=== PATIENT | male | born 1955 | race Caucasian/White ===

== ENCOUNTER 2019-08-09 13:13 | Inpatient (IN) | payer MEDICARE ==
[~2019-08-09] VITALS: Ht 180.3 cm; Wt 82.9 kg
[2019-08-09] MEDS ORDERED: fentaNYL PF VIAL 100 MCG/2 ML VIAL IVP ONE (13:30)
[2019-08-09] MEDS ORDERED: IV NORMAL SALINE 1000ML BAG 1,000 ML IV ONE ×2 (13:30→14:30)
--- NOTE | 2019-08-09 13:35 | PHYS DOC ---
Past Medical History Past Medical History: COPD, Diabetes-Type II, Hypertension Past Surgical History: No Surgical History Smoking Status: Current Every Day Smoker Alcohol Use: None General Adult EDM: Chief Complaint: ABDOMINAL PAIN HPI: HPI: Patient is a 64 year old male who presents with states about 10 days ago he was trying to lift the back of a lawnmower when he felt a pop in his chest and abdomen area. Patient is complaining of abdominal pain rates a 10 out of 10. He states that he has been having regular bowel movements. He states 2 days ago he was a bit constipated but he is no longer constipated. He states he has not had any nausea or vomiting or diarrhea. He states he does not have any chest pain. He states the pain is worse upon movement. He states he is short of breath. He has a history of COPD, diabetes, hypertension, smoker. He states that he took some BC powder this morning. Review of Systems: Review of Systems: Respiratory: Denies cough. + shortness of breath. [] GI: abdominal pain, denies nausea, vomiting, bloody stools or diarrhea. [] Heart Score: Risk Factors: Risk Factors: DM, Current or recent (<one month) smoker, HTN, HLP, family history of CAD, obesity. Risk Scores: Score 0 - 3: 2.5% MACE over next 6 weeks - Discharge Home Score 4 - 6: 20.3% MACE over next 6 weeks - Admit for Clinical Observation Score 7 - 10: 72.7% MACE over next 6 weeks - Early Invasive Strategies Current Medications: Current Medications Medications (Trade) Dose Ordered Sig/Hector Start Time Stop Time Status Last Admin Dose Admin Fentanyl Citrate (Fentanyl 2ml Vial) 50 mcg 1X ONCE 08/09/19 13:30 08/09/19 13:31 UNV Sodium Chloride 1,000 ml @ 1,000 mls/hr 1X ONCE 08/09/19 13:30 08/09/19 14:29 UNV Allergies: Allergies: Allergies Coded Allergies Type Severity Reaction Last Updated Verified Penicillins Allergy Unknown 08/09/19 Yes Physical Exam: PE: Constitutional: Well developed, well nourished, no acute distress, non-toxic appearance. [] HENT: Normocephalic, atraumatic, bilateral external ears normal, oropharynx moist, no oral exudates, nose normal. [] Eyes: PERRLA, EOMI, conjunctiva normal, no discharge. [] Neck: Normal range of motion, no tenderness, supple, no stridor. [] Cardiovascular:Heart rate tachy regular rhythm, no murmur [] Lungs & Thorax: Bilateral breath sounds diminished to auscultation [] Abdomen: Bowel sounds normal, tight, distended, generalized tenderness, no masses, no pulsatile masses. [] Skin: Warm, dry, no erythema, no rash. [] Back: No tenderness, no CVA tenderness. [] Extremities: No tenderness, no cyanosis, no clubbing, ROM intact, no edema. [] Neurologic: Alert and oriented X 3, normal motor function, normal sensory function, no focal deficits noted. [] Psychologic: Affect normal, judgement normal, mood normal. [] Current Patient Data: Vital Signs: Vital Signs Date Time Temp Pulse Resp B/P (MAP) Pulse Ox O2 Delivery O2 Flow Rate FiO2 08/09/19 13:23 98.0 110 30 149/90 (109) 96 Nasal Cannula 2.0 98.0 EKG: EK and read by Dr Dukes. Sinus Tachycardia and no STEMI[] Radiology/Procedures: Radiology/Procedures: [] Impression: [address] [id number] IMAGING REPORT Signed PATIENT: SHWETA PATEL ACCOUNT: [id number] : 1955 LOCATION: ER AGE: 64 SEX: M EXAM STATUS: PRE ER ORD. PHYSICIAN: ENRIKE LITTLE APRN REASON: SHORT OF BREATH, ABDOMINAL PAIN PROCEDURE: PORTABLE CHEST 1V PORTABLE CHEST 1V History: Shortness of breath. Abdominal pain. Comparison: None. Findings: Low lung volumes. Patchy left basilar opacities. Normal heart size. No pneumothorax. Impression: 1. Low lung volumes with patchy left basilar opacities, most likely atelectasis. Electronically signed by: PedroP ablo Calvert DO (08/09/2019 1:45 PM) [id number] DICTATED and SIGNED BY: PEDRO PABLO CALVERT DO DATE: 08/09/[address] [id number] IMAGING REPORT Signed PATIENT: SHWETA PATEL ACCOUNT: [id number] : 1955 LOCATION: ER AGE: 64 SEX: M EXAM STATUS: PRE ER ORD. PHYSICIAN: ENRIKE LITTLE APRN REASON: ABDOMINAL PAIN S/P HEAVY LIFTING, FELT POP IN CHEST. SOA PROCEDURE: CT ANGIO CHEST ABD PELVIS Examination: CT ANGIO CHEST ABD PELVIS History: Shortness of breath, abdominal pain Comparison/Correlation: None Findings: Axial images of chest, abdomen, and pelvis obtained following IV contrast and arteriography protocol. Sagittal and coronal reformatted images were provided. 3-D volume rendered images of the aorta were provided. Maximum intensity projection images were provided. At the left base of the neck, there is a heterogeneous intermediate density structure present. It is present just lateral to the left thyroid lobe and abuts the posterior margin of the left common carotid artery. It measures 3.3 cm x 3 cm x 3.8 cm longitudinal. It is well-circumscribed. There is a fat plane between this mass lesion in the left thyroid lobe. Assessment of the aortic arch branches is somewhat limited due to artifact related to contrast within the left brachiocephalic vein and superior vena cava. Thoracic aorta is unremarkable with no evidence of dissection or aneurysm. There is scattered atheromatous involvement of the abdominal aorta. There is excellent pulmonary arterial opacification. No thromboembolic disease identified. Very high-grade stenosis of the celiac artery just distal to its origin is noted. Similar mesenteric arteries widely patent. Approximately 30 percent stenosis of the superior mesenteric artery origin is noted. Significant calcific involvement of the common iliac arteries is noted. Bilateral main renal arteries are widely patent. Marked left anterior descending coronary vessel calcification is noted. Mild emphysematous involvement of the lung kong diffusely seen. Minimal right left costophrenic sulcus atelectasis is present. Minimal left basilar aspects of atelectasis. Several pulmonary nodules bilaterally present. Most do not appear to have calcific components. Largest of these on the left at the midthoracic level laterally within the upper lobe on axial image 41 measures 0.8 cm x 0.6 mm. A left posterior basilar aspect, there is a 1.1 cm x 0.5 cm nodule on axial image 59. The right mid thoracic level within the upper lobe along the major fissure, there is a 0.7 cm diameter nodule. Possibility of this representing a perifissural lymph node is raised considering its location. Other nodules present mostly not adjacent to the fissure. Small hiatal hernia is present. There is an enlarged lymph node anterior to the hiatal hernia on axial image 72 measuring 3.5 cm x 2.9 cm. Smaller lymph nodes or masses along the left side of the descending thoracic aorta are present on axial image 61. Largest of these measures 2 cm diameter. Significant nodular contour of the liver compatible with cirrhosis. There is a hypoenhancing region involving the liver inferior to the level of the middle hepatic vein on axial image 82 measuring 4.2 cm x 3 cm.Splenomegaly is present with 17 cm in longitudinal measurement. Adrenal glands are normal. Kidneys are unremarkable. Pancreas is unremarkable. Gallbladder fossa is unremarkable. No bowel obstruction. Appendix is normal. Diverticulosis is mild. Moderate amount of ascites is noted involving the abdomen and pelvis. Nonenlarged lymph nodes are present involving the retroperitoneum. Masses present just superior to the pancreatic neck measuring 4.2 cm x 4.3 cm. Additional masses present along the posterior inferior margin of the gastric cardia with heterogeneous enhancement. It measures 4.5 cm x 3.4 cm. Urinary bladder is unremarkable. Degenerative disc space narrowing of the cervical spine noted. Impression: No aortic dissection or aneurysm. Atherosclerotic calcific involvement is present. 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 No pulmonary arterial thromboembolic disease. Multiple pulmonary nodules. Mass at the left base of the neck. Multiple enlarged masses along the left side of the ascending thoracic aorta and anterior to a hiatal hernia. Upper abdominal enlarged lymph nodes or masses. Metastatic etiology is of concern. Hepatic cirrhosis with splenomegaly. Hypoattenuation involving the liver which raises possibility of mass lesion is noted. Further evaluation MRI of the liver without and with contrast should be considered for more definitive assessment. Moderate to large amount of ascites. Marked coronary arterial calcification. Correlate clinically for underlying coronary disease. PQRS Compliance Statement: One or more of the following individualized dose reduction techniques were utilized for this examination: 1. Automated exposure control 2. Adjustment of the mA and/or kV according to patient size 3. Use of iterative reconstruction technique Electronically signed by: Augustus Bradley MD (08/09/2019 3:09 PM) [id number] DICTATED and SIGNED BY: AUGUSTUS BRADLEY MD DATE: 08/09/19 1509 Course & Med Decision Making: Course & Med Decision Making Pertinent Labs and Imaging studies reviewed. (See chart for details) Alert and oriented. Speaks in full clear sentences. Abdomen is distended, rounded, tight, generalized tenderness with palpation. Skin pink warm and dry. Speaks in full complete sentences. Lungs are diminished bilaterally. Bowel sounds are hypoactive. No extremity edema. I have spoken to Dr Moy for admission. He states to put the patient on Med Surg and that he will place consults for the patient. [] Dragon Disclaimer: Dragon Disclaimer: This electronic medical record was generated, in whole or in part, using a voice recognition dictation system. Departure Departure Impression: Primary Impression: Ascites Qualified Codes: R18.8 - Other ascites Disposition: ADMITTED INPATIENT Admitting Physician: RAMONE Condition: STABLE ENRIKE LITTLE APRN August 09, 2019 13:35
[2019-08-09 13:48] LABS: BASO % 1 % (0-3); EOS # 0.1 x10^3/uL (0.0-0.7); EOS % 2 % (0-3); HEMATOCRIT 41.2 % (39.0-53.0); HEMOGLOBIN 13.7 g/dL (13.0-17.5); LYMPH # 1.6 x10^3/uL (1.0-4.8); LYMPH % 17 % (24-48); MEAN CORPUSCULAR HEMOGLOBIN 31 pg (25-35); MEAN CORPUSCULAR HGB CONC 33 g/dL (31-37); MEAN CORPUSCULAR VOLUME 92 fL (79-100); MONO # 0.9 x10^3/uL (0.0-1.1); MONO % 10 % (0-9); NEUT # 6.6 x10^3/uL (1.8-7.7); NEUT % 71 % (31-73); PLATELET COUNT 147 x10^3/uL (140-400); RED CELL DISTRIBUTION WIDTH 14.8 % (11.5-14.5); WHITE BLOOD COUNT 9.2 x10^3/uL (4.0-11.0)
--- NOTE | 2019-08-09 13:48 | RAD ---
PORTABLE CHEST 1V History: Shortness of breath. Abdominal pain. Comparison: None. Findings: Low lung volumes. Patchy left basilar opacities. Normal heart size. No pneumothorax. Impression: 1. Low lung volumes with patchy left basilar opacities, most likely atelectasis. Electronically signed by: Pedro Pablo Calvert DO (08/09/2019 1:45 PM) [id number]
[2019-08-09 13:58] LABS: PROTHROMBIN TIME PATIENT 13.3 SEC (11.7-14.0)
[2019-08-09 14:00] LABS: CALCIUM 8.5 mg/dL (8.5-10.1); CREATININE 0.7 mg/dL (0.7-1.3); GFR 114.3
[2019-08-09 14:15] LABS: ALBUMIN 2.7 g/dL (3.4-5.0); ALBUMIN/GLOBULIN RATIO 0.8 (1.0-1.7); TOTAL BILIRUBIN 0.9 mg/dL (0.2-1.0); TOTAL PROTEIN 5.9 g/dL (6.4-8.2)
[2019-08-09] MEDS ORDERED: CONTRAST GIVEN. MC PRN (14:15)
[2019-08-09] MEDS ORDERED: IOHEXOL 350 MG/ML 100 ML VIAL. IV ONE (14:15)
--- NOTE | 2019-08-09 14:46 | EKG ---
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
--- NOTE | 2019-08-09 15:12 | RAD ---
Examination: CT ANGIO CHEST ABD PELVIS History: Shortness of breath, abdominal pain Comparison/Correlation: None Findings: Axial images of chest, abdomen, and pelvis obtained following IV contrast and arteriography protocol. Sagittal and coronal reformatted images were provided. 3-D volume rendered images of the aorta were provided. Maximum intensity projection images were provided. At the left base of the neck, there is a heterogeneous intermediate density structure present. It is present just lateral to the left thyroid lobe and abuts the posterior margin of the left common carotid artery. It measures 3.3 cm x 3 cm x 3.8 cm longitudinal. It is well-circumscribed. There is a fat plane between this mass lesion in the left thyroid lobe. Assessment of the aortic arch branches is somewhat limited due to artifact related to contrast within the left brachiocephalic vein and superior vena cava. Thoracic aorta is unremarkable with no evidence of dissection or aneurysm. There is scattered atheromatous involvement of the abdominal aorta. There is excellent pulmonary arterial opacification. No thromboembolic disease identified. Very high-grade stenosis of the celiac artery just distal to its origin is noted. Similar mesenteric arteries widely patent. Approximately 30 percent stenosis of the superior mesenteric artery origin is noted. Significant calcific involvement of the common iliac arteries is noted. Bilateral main renal arteries are widely patent. Marked left anterior descending coronary vessel calcification is noted. Mild emphysematous involvement of the lung kong diffusely seen. Minimal right left costophrenic sulcus atelectasis is present. Minimal left basilar aspects of atelectasis. Several pulmonary nodules bilaterally present. Most do not appear to have calcific components. Largest of these on the left at the midthoracic level laterally within the upper lobe on axial image 41 measures 0.8 cm x 0.6 mm. A left posterior basilar aspect, there is a 1.1 cm x 0.5 cm nodule on axial image 59. The right mid thoracic level within the upper lobe along the major fissure, there is a 0.7 cm diameter nodule. Possibility of this representing a perifissural lymph node is raised considering its location. Other nodules present mostly not adjacent to the fissure. Small hiatal hernia is present. There is an enlarged lymph node anterior to the hiatal hernia on axial image 72 measuring 3.5 cm x 2.9 cm. Smaller lymph nodes or masses along the left side of the descending thoracic aorta are present on axial image 61. Largest of these measures 2 cm diameter. Significant nodular contour of the liver compatible with cirrhosis. There is a hypoenhancing region involving the liver inferior to the level of the middle hepatic vein on axial image 82 measuring 4.2 cm x 3 cm.Splenomegaly is present with 17 cm in longitudinal measurement. Adrenal glands are normal. Kidneys are unremarkable. Pancreas is unremarkable. Gallbladder fossa is unremarkable. No bowel obstruction. Appendix is normal. Diverticulosis is mild. Moderate amount of ascites is noted involving the abdomen and pelvis. Nonenlarged lymph nodes are present involving the retroperitoneum. Masses present just superior to the pancreatic neck measuring 4.2 cm x 4.3 cm. Additional masses present along the posterior inferior margin of the gastric cardia with heterogeneous enhancement. It measures 4.5 cm x 3.4 cm. Urinary bladder is unremarkable. Degenerative disc space narrowing of the cervical spine noted. Impression: No aortic dissection or aneurysm. Atherosclerotic calcific involvement is present. 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 No pulmonary arterial thromboembolic disease. Multiple pulmonary nodules. Mass at the left base of the neck. Multiple enlarged masses along the left side of the ascending thoracic aorta and anterior to a hiatal hernia. Upper abdominal enlarged lymph nodes or masses. Metastatic etiology is of concern. Hepatic cirrhosis with splenomegaly. Hypoattenuation involving the liver which raises possibility of mass lesion is noted. Further evaluation MRI of the liver without and with contrast should be considered for more definitive assessment. Moderate to large amount of ascites. Marked coronary arterial calcification. Correlate clinically for underlying coronary disease. PQRS Compliance Statement: One or more of the following individualized dose reduction techniques were utilized for this examination: 1. Automated exposure control 2. Adjustment of the mA and/or kV according to patient size 3. Use of iterative reconstruction technique Electronically signed by: Augustus Henning MD (08/09/2019 3:09 PM) [id number]
[2019-08-09] MEDS ORDERED: ONDANSETRON PF 4 MG/2 ML VIAL. IV PRN ×2 (15:45→16:30)
--- NOTE | 2019-08-09 16:12 | PDOC1 ---
History and Physical Date of Admission Date of Admission DATE: 08/09/19 TIME: 16:07 Identification/Chief Complaint Chief Complaint Abdominal pain Source Source: Patient History of Present Illness History of Present Illness Mr Sims is a 64 yo M [place] who gets most of his care at the [facility] w/ PMHx COPD, Diabetes-Type II, Hypertension, Hep C s/p SVR treatment (initially did not disclose this), smoker who presents with chest tightness and abdominal pain. Abdominal pain rates a 10 out of 10. He states that he has been having regular bowel movements. He states 2 days ago he was a bit constipated but he is no longer constipated. He states he has not had any nausea or vomiting or diarrhea. He states he does not have any chest pain currently. On ROS he also notes new shortness of breath which has been progressive. He also notes abdominal pain on movement. He is asking for food and he is worried about his being upset after he was told he probably has cancer based on his abnormal CT scan. He notes states about 10 days ago he was trying to lift the back of a lawnmower when he felt a pop in his chest and abdomen area. 3 days ago he tried to lift a tractor and felt the same sensation. 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 Also noted is a mass at the left base of the neck. In addition, multiple enlarged masses along the left side of the ascending thoracic aorta and anterior to a hiatal hernia and upper abdominal enlarged lymph nodes or masses. Finally notable is hepatic cirrhosis with splenomegaly and hypoattenuation involving the liver which raises possibility of mass lesion is noted. Moderate to large amount of ascites. He stopped taking his medications this past March due to frustration with some medical bills. Last MD visit was 1.5 years ago at the [facility]. He is up to date on colonoscopies, but notes last year he had to have barium enema CT colonography. He also notes a left neck pain that had been bothering him, but notes a negative w/u at the [facility]. No records currently available. Labs significant for WBC 9.2, Hb 13.7, platelets 147, NA 135, K4, BUN 14, CR 0.7, glucose 208, AST 213, ALT 75, alk phos 464, albumin 2.7, lipase 172, INR 1 .1, troponin negative. Admitted for further care. Past Medical History Endocrine: Diabetes Past Surgical History Past Surgical History: No pertinent history Family History Family History: High Cholestrol, Hypertension Social History Smoke: 1 pack per day ALCOHOL: other (Quit in 2004) Drugs: None Current Problem List Problem List Problems Medical Problems: (1) Ascites Status: Acute Current Medications Current Medications Current Medications Fentanyl Citrate (Fentanyl 2ml Vial) 50 mcg 1X ONCE IVP Last administered on 08/09/19at 13:36; Start 08/09/19 at 13:30; Stop 08/09/19 at 13:31; Status DC Sodium Chloride 1,000 ml @ 1,000 mls/hr 1X ONCE IV Last administered on 08/09/19at 13:36; Start 08/09/19 at 13:30; Stop 08/09/19 at 14:29; Status DC Iohexol (Omnipaque 350 Mg/ml) 100 ml 1X ONCE IV Last administered on 08/09/19at 14:23; Start 08/09/19 at 14:15; Stop 08/09/19 at 14:16; Status DC Info (CONTRAST GIVEN -- Rx MONITORING) 1 each PRN DAILY PRN [facility] SEE COMMENTS; Start 08/09/19 at 14:15; Stop 08/11/19 at 14:14 Sodium Chloride 1,000 ml @ 1,000 mls/hr 1X ONCE IV Last administered on 08/09/19at 14:35; Start 08/09/19 at 14:30; Stop 08/09/19 at 15:29; Status DC Ondansetron HCl (Zofran) 4 mg PRN Q8HRS PRN IV NAUSEA/VOMITING; Start 08/09/19 at 15:45; Stop 08/10/19 at 15:44 Fentanyl Citrate (Fentanyl 2ml Vial) 50 mcg PRN Q1HR PRN IV PAIN; Start 08/09/19 at 15:45; Stop 08/10/19 at 15:44 Allergies Allergies: Coded Allergies: Penicillins (Verified Allergy, Unknown, 08/09/19) ROS General: YES: Fatigue, Malaise; No: Chills, Night Sweats, Appetite, Other PSYCHOLOGICAL ROS: No: Anxiety, Behavioral Disorder, Concentration difficultie, Decreased libido, Depression, Disorientation, Hallucinations, Hostility, Irritablity, Memory difficulties, Mood Swings, Obsessive thoughts, Physical abuse, Sexual abuse, Sleep disturbances, Suicidal ideation, Other Eyes: No Blurry vision, No Decreased vision, No Double vision, No Dry eyes, No Excessive tearing, No Eye Pain, No Itchy Eyes, No Loss of vision, No Photophobia, No Scotomata, No Uses contacts, No Uses glasses, No Other HEENT: No: Heacaches, Visual Changes, Hearing change, Nasal congestion, Nasal d ischarge, Oral lesions, Sinus pain, Sore Throat, Epistaxis, Sneezing, Snoring, Tinnitus, Vertigo, Vocal changes, Other ALLERGY AND IMMUNOLOGY: No: Hives, Insect Bite Sensitivity, Itchy/Watery Eyes, Nasal Congestion, Post Nasal Drip, Seasonal Allergies, Other Hematological and Lymphatic: No: Bleeding Problems, Blood Clots, Blood Transfusions, Brusing, Night Sweats, Pallor, Swollen Lymph Nodes, Other ENDOCRINE: No: Breast Changes, Galactorrhea, Hair Pattern Changes, Hot Flashes, Malaise/lethargy, Mood Swings, Palpitations, Polydipsia/polyuria, Skin Changes, Temperature Intolerance, Unexpected Weight Changes, Other Breast: No New/Changing Breast Lumps, No Nipple changes, No Nipple discharge, No Other Respiratory: YES: Shortness of breath; No: Cough, Hemoptysis, Orthopnea, Pleuritic Pain, SOB with excertion, Sputum Changes, Stridor, Tachypnea, Wheezing, Other Cardiovascular: No Chest Pain, No Palpitations, No Orthopnea, No Paroxysmal Noc. Dyspnea, No Edema, No Lt Headedness, No Other Gastrointestinal: Yes Abdominal Pain; No Nausea, No Vomiting, No Diarrhea, No Constipation, No Melena, No Hematochezia, No Other Genitourinary: No Dysuria, No Frequency, No Incontinence, No Hematuria, No Retention, No Discharge, No Urgency, No Pain, No Flank Pain, No Other, No , No , No , No , No , No , No Musculoskeletal: No Gait Disturbance, No Joint Pain, No Joint Stiffness, No Joint Swelling, No Muscle Pain, No Muscular Weakness, No Pain In:, No Swelling In:, No Other Neurological: No Behavorial Changes, No Bowel/Bladder ControlChng, No Confusion, No Dizziness, No Gait Disturbance, No Headaches, No Impaired Coord/balance, No Memory Loss, No Numbness/Tingling, No Seizures, No Speech Problems, No Tremors, No Visual Changes, No Weakness, No Other Skin: Yes Dry Skin; No Eczema, No Hair Changes, No Lumps, No Mole Changes, No Mottling, No Nail Changes, No Pruritus, No Rash, No Skin Lesion Changes, No Other, No Acne Physical Exam General: Alert, Oriented X3, Cooperative, moderate distress Lungs: Other (scattered wheezes) Heart: S1S2, RRR, no thrills, no rubs, no gallops, no murmurs Abdomen: Normal bowel sounds, Soft, No hepatosplenomegaly, No masses, Other (positive fluid wave, large ascites) Rectal Exam: not examined Extremities: No clubbing, No cyanosis, No edema, Normal pulses, No tenderness/swelling Skin: No rashes, No breakdown, No significant lesion Neuro: Normal gait, Normal speech, Strength at 5/5 X4 ext, Normal tone, Se nsation intact, Cranial nerves 3-12 NL, Reflexes 2+ Psych/Mental Status: Mental status NL, Mood NL Vitals Vitals Vital Signs Date Time Temp Pulse Resp B/P (MAP) Pulse Ox O2 Delivery O2 Flow Rate FiO2 08/09/19 15:33 82 25 148/81 (103) 95 Nasal Cannula 2.0 08/09/19 13:23 98.0 98.0 Labs Labs Laboratory Tests Test 08/09/19 13:28 White Blood Count 9.2 x10^3/uL (4.0-11.0) Red Blood Count 4.50 x10^6/uL (4.30-5.70) Hemoglobin 13.7 g/dL (13.0-17.5) Hematocrit 41.2 % (39.0-53.0) Mean Corpuscular Volume 92 fL (79-100) Mean Corpuscular Hemoglobin 31 pg (25-35) Mean Corpuscular Hemoglobin Concent 33 g/dL (31-37) Red Cell Distribution Width 14.8 % (11.5-14.5) Platelet Count 147 x10^3/uL (140-400) Neutrophils (%) (Auto) 71 % (31-73) Lymphocytes (%) (Auto) 17 % (24-48) Monocytes (%) (Auto) 10 % (0-9) Eosinophils (%) (Auto) 2 % (0-3) Basophils (%) (Auto) 1 % (0-3) Neutrophils # (Auto) 6.6 x10^3/uL (1.8-7.7) Lymphocytes # (Auto) 1.6 x10^3/uL (1.0-4.8) Monocytes # (Auto) 0.9 x10^3/uL (0.0-1.1) Eosinophils # (Auto) 0.1 x10^3/uL (0.0-0.7) Basophils # (Auto) 0.0 x10^3/uL (0.0-0.2) Prothrombin Time 13.3 SEC (11.7-14.0) Prothromb Time International Ratio 1.1 (0.8-1.1) Sodium Level 135 mmol/L (136-145) Potassium Level 4.0 mmol/L (3.5-5.1) Chloride Level 102 mmol/L (98-107) Carbon Dioxide Level 24 mmol/L (21-32) Anion Gap 9 (6-14) Blood Urea Nitrogen 14 mg/dL (8-26) Creatinine 0.7 mg/dL (0.7-1.3) Estimated GFR (Cockcroft-Gault) 114.3 BUN/Creatinine Ratio 20 (6-20) Glucose Level 208 mg/dL (70-99) Lactic Acid Level 3.1 mmol/L (0.4-2.0) Calcium Level 8.5 mg/dL (8.5-10.1) Total Bilirubin 0.9 mg/dL (0.2-1.0) Aspartate Amino Transf (AST/SGOT) 213 U/L (15-37) Alanine Aminotransferase (ALT/SGPT) 75 U/L (16-63) Alkaline Phosphatase 464 U/L (46-116) Troponin I Quantitative < 0.017 ng/mL (0.000-0.055) Total Protein 5.9 g/dL (6.4-8.2) Albumin 2.7 g/dL (3.4-5.0) Albumin/Globulin Ratio 0.8 (1.0-1.7) Lipase 172 U/L (73-393) Laboratory Tests Test 08/09/19 13:28 White Blood Count 9.2 x10^3/uL (4.0-11.0) Red Blood Count 4.50 x10^6/uL (4.30-5.70) Hemoglobin 13.7 g/dL (13.0-17.5) Hematocrit 41.2 % (39.0-53.0) Mean Corpuscular Volume 92 fL (79-100) Mean Corpuscular Hemoglobin 31 pg (25-35) Mean Corpuscular Hemoglobin Concent 33 g/dL (31-37) Red Cell Distribution Width 14.8 % (11.5-14.5) Platelet Count 147 x10^3/uL (140-400) Neutrophils (%) (Auto) 71 % (31-73) Lymphocytes (%) (Auto) 17 % (24-48) Monocytes (%) (Auto) 10 % (0-9) Eosinophils (%) (Auto) 2 % (0-3) Basophils (%) (Auto) 1 % (0-3) Neutrophils # (Auto) 6.6 x10^3/uL (1.8-7.7) Lymphocytes # (Auto) 1.6 x10^3/uL (1.0-4.8) Monocytes # (Auto) 0.9 x10^3/uL (0.0-1.1) Eosinophils # (Auto) 0.1 x10^3/uL (0.0-0.7) Basophils # (Auto) 0.0 x10^3/uL (0.0-0.2) Prothrombin Time 13.3 SEC (11.7-14.0) Prothromb Time International Ratio 1.1 (0.8-1.1) Sodium Level 135 mmol/L (136-145) Potassium Level 4.0 mmol/L (3.5-5.1) Chloride Level 102 mmol/L (98-107) Carbon Dioxide Level 24 mmol/L (21-32) Anion Gap 9 (6-14) Blood Urea Nitrogen 14 mg/dL (8-26) Creatinine 0.7 mg/dL (0.7-1.3) Estimated GFR (Cockcroft-Gault) 114.3 BUN/Creatinine Ratio 20 (6-20) Glucose Level 208 mg/dL (70-99) Lactic Acid Level 3.1 mmol/L (0.4-2.0) Calcium Level 8.5 mg/dL (8.5-10.1) Total Bilirubin 0.9 mg/dL (0.2-1.0) Aspartate Amino Transf (AST/SGOT) 213 U/L (15-37) Alanine Aminotransferase (ALT/SGPT) 75 U/L (16-63) Alkaline Phosphatase 464 U/L (46-116) Troponin I Quantitative < 0.017 ng/mL (0.000-0.055) Total Protein 5.9 g/dL (6.4-8.2) Albumin 2.7 g/dL (3.4-5.0) Albumin/Globulin Ratio 0.8 (1.0-1.7) Lipase 172 U/L (73-393) Images Images CT ANGIO CHEST ABD PELVIS At the left base of the neck, there is a heterogeneous intermediate density str ucture present. It is present just lateral to the left thyroid lobe and abuts the posterior margin of the left common carotid artery. It measures 3.3 cm x 3 cm x 3.8 cm longitudinal. It is well-circumscribed. There is a fat plane between this mass lesion in the left thyroid lobe. Assessment of the aortic arch branches is somewhat limited due to artifact related to contrast within the left brachiocephalic vein and superior vena cava. Thoracic aorta is unremarkable with no evidence of dissection or aneurysm.There is scattered atheromatous involvement of the abdominal aorta. There is excellent pulmonary arterial opacification. No thromboembolic disease identified. Very high-grade stenosis of the celiac artery just distal to its origin is noted. Similar mesenteric arteries widely patent. Approximately 30 percent stenosis of the superior mesenteric artery origin is noted. Significant calcific involvement of the common iliac arteries is noted. Bilateral main renal arteries are widely patent. Marked left anterior descending coronary vessel calcification is noted. Mild emphysematous involvement of the lung kong diffusely seen. Minimal right left costophrenic sulcus atelectasis is present. Minimal left basilar aspects of atelectasis. Several pulmonary nodules bilaterally present. Most do not appear to have calcific components. Largest of these on the left at the midthoracic level laterally within the upper lobe on axial image 41 measures 0.8 cm x 0.6 mm. A left posterior basilar aspect, there is a 1.1 cm x 0.5 cm nodule on axial image 59. The right mid thoracic level within the upper lobe along the major fissure, there is a 0.7 cm diameter nodule. Possibility of this representing a perifissural lymph node is raised considering its location. Other nodules present mostly not adjacent to the fissure. Small hiatal hernia is present. There is an enlarged lymph node anterior to the hiatal hernia on axial image 72 measuring 3.5 cm x 2.9 cm. Smaller lymph nodes or masses along the left side of the descending thoracic aorta are present on axial image 61. Largest of these measures 2 cm diameter. Significant nodular contour of the liver compatible with cirrhosis. There is a hypoenhancing region involving the liver inferior to the level of the middle hepatic vein on axial image 82 measuring 4.2 cm x 3 cm. Splenomegaly is present with 17 cm in longitudinal measurement. Adrenal glands are normal. Kidneys are unremarkable. Pancreas is unremarkable. Gallbladder fossa is unremarkable. No bowel obstruction. Appendix is normal. Diverticulosis is mild. Moderate amount of ascites is noted involving the abdomen and pelvis. Nonenlarged lymph nodes are present involving the retroperitoneum. Masses present just superior to the pancreatic neck measuring 4.2 cm x 4.3 cm. Additional masses present along the posterior inferior margin of the gastric cardia with heterogeneous enhancement. It measures 4.5 cm x 3.4 cm. Urinary bladder is unremarkable. Degenerative disc space narrowing of the cervical spine noted. Impression: No aortic dissection or aneurysm. Atherosclerotic calcific involvement is present. 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 No pulmonary arterial thromboembolic disease. Multiple pulmonary nodules. Mass at the left base of the neck. Multiple enlarged masses along the left side of the ascending thoracic aorta and anterior to a hiatal hernia. Upper abdominal enlarged lymph nodes or masses. Metastatic etiology is of concern. Hepatic cirrhosis with splenomegaly. Hypoattenuation involving the liver which raises possibility of mass lesion is noted. Further evaluation MRI of the liver without and with contrast should be considered for more definitive assessment. Moderate to large amount of ascites. Marked coronary arterial calcification. Correlate clinically for underlying coronary disease. VTE Prophylaxis Ordered VTE Prophylaxis Devices: No VTE Pharmacological Prophylaxi: Yes Assessment/Plan Assessment/Plan A/P: Spontaneous ascites - almost certainly due to progression of cirrhosis of liver. Especially concerning that he has stopped drinking and is in SVR from his hep C. D/w IR to have diagnostic and therapeutic paracentesis in AM if possible. GI consulted as well. Cirrhosis - with splenomegaly and spontaneous ascites risk factors of hep C and history of EtOH abuse. GI consulted. Transaminitis - likely related to acute decompensated liver failure or acute hepatitis or congestive hepatopathy. 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 Abdominal doppler would be appropriate after paracentesis and at that time can assess for possible portal thrombus as well Multiple pulmonary nodules. Also noted is a mass at the left base of the neck. In addition, multiple enlarged masses along the left side of the ascending thoracic aorta and anterior to a hiatal hernia and upper abdominal enlarged lymph nodes or masses. Pulm consulted, Hypoattenuation involving the liver which raises possibility of mass lesion - CA19-9 and CEA ordered. GI consulted COPD - prn nebs ordered Diabetes-Type II - basal bolus plus insulin while inpatient Hypertension - will reconcile meds with [facility] H/o Hep C s/p SVR treatment - will check acute hepatitis panel. Will d/w GI if PCR is appropriate FEN - ADA diet, NPO after midnight PPX - heparin TID FULL CODE Dispo - inpatient ALISHA TREJO MD August 09, 2019 16:12
[2019-08-09 16:40] VITALS: BP 134/76
--- NOTE | 2019-08-09 17:00 | NUR ---
Pt admitted from ED via wheelchair. A&O X 4, VSS on 2L of O2, denies nausea or pain. Completed admission assessments. Consults called by health unit coordinator. Oriented to room and routine. Meal tray ordered. Water pitcher filled. Call light within reach. Will return to monitor.
[2019-08-09] MEDS ORDERED: DEXTROSE 50% 25 GM / 50ML DISP.SYRIN. IV PRN (17:15)
[2019-08-09] MEDS ORDERED: ALBUTEROL SULFATE 2.5 MG/3 ML NEBU. NEB PRN (17:15)
[2019-08-09] MEDS ORDERED: FUROSEMIDE 20 MG/2 ML VIAL. IVP ONE (17:45)
[2019-08-09 19:15] VITALS: BP 152/87
[2019-08-09] MEDS: fentaNYL PF VIAL 100 MCG/2 ML VIAL IV PRN ×3 (19:17→23:19)
[2019-08-09] MEDS: INSULIN GLARGINE SYRINGE. SQ SCH (21:00)
[2019-08-09] MEDS: INSULIN LISPRO 300 UNITS/3 ML VIAL. SQ SCH (21:00)
[2019-08-09 22:32] LABS: BILIRUBIN,URINE NEGATIVE (NEG); CLARITY,URINE CLEAR; NITRITE,URINE NEGATIVE (NEG); PROTEIN,URINE NEGATIVE (NEG-TRACE)
[2019-08-09 22:39] LABS: BARBITURATES NEG (NEG); BENZODIAZEPINES NEG (NEG); CANNABINOIDS NEG (NEG); COCAINE NEG (NEG); METHADONE NEG (NEG); OPIATES NEG (NEG); PHENCYCLIDINE NEG (NEG)
[2019-08-09 22:40] LABS: AMPHETAMINE/METHAMPHETAMINE POS (NEG)
[2019-08-09 22:45] LABS: COLOR,URINE DK YELLOW
[2019-08-09 22:47] LABS: BACTERIA,URINE 0 /HPF (0-FEW); RBC,URINE 0 /HPF (0-2); WBC,URINE RARE /HPF (0-4)
[2019-08-09] MEDS: HEPARIN for SUB-Q USE 5,000 UNIT/ML VIAL. SQ SCH (23:00)
[2019-08-09 23:06] VITALS: BP 124/85
[2019-08-10] VITALS (9 sets, daily range): BP systolic 120–149; BP diastolic 68–84
[2019-08-10] MEDS: fentaNYL PF VIAL 100 MCG/2 ML VIAL IV PRN ×2 (01:15→02:42)
[2019-08-10 02:47] LABS: BASO # 0.1 x10^3/uL (0.0-0.2); BASO % 1 % (0-3); EOS # 0.3 x10^3/uL (0.0-0.7); EOS % 3 % (0-3); HEMATOCRIT 43.9 % (39.0-53.0); HEMOGLOBIN 14.5 g/dL (13.0-17.5); LYMPH # 1.7 x10^3/uL (1.0-4.8); LYMPH % 18 % (24-48); MEAN CORPUSCULAR HEMOGLOBIN 30 pg (25-35); MEAN CORPUSCULAR HGB CONC 33 g/dL (31-37); MEAN CORPUSCULAR VOLUME 92 fL (79-100); MONO # 0.9 x10^3/uL (0.0-1.1); MONO % 10 % (0-9); NEUT # 6.2 x10^3/uL (1.8-7.7); NEUT % 68 % (31-73); PLATELET COUNT 158 x10^3/uL (140-400); RED BLOOD COUNT 4.79 x10^6/uL (4.30-5.70); RED CELL DISTRIBUTION WIDTH 15.1 % (11.5-14.5); WHITE BLOOD COUNT 9.1 x10^3/uL (4.0-11.0)
[2019-08-10 03:17] LABS: ALBUMIN 2.6 g/dL (3.4-5.0); ALBUMIN/GLOBULIN RATIO 0.8 (1.0-1.7); CALCIUM 8.4 mg/dL (8.5-10.1); CREATININE 0.7 mg/dL (0.7-1.3); GFR 114.3; TOTAL BILIRUBIN 1.2 mg/dL (0.2-1.0)
[2019-08-10] MEDS: MORPHINE SULFATE 2 MG/ML VIAL. IV PRN ×4 (04:40→20:24)
[2019-08-10] MEDS: HEPARIN for SUB-Q USE 5,000 UNIT/ML VIAL. SQ SCH ×3 (06:00→21:22)
[2019-08-10] MEDS: INSULIN LISPRO 300 UNITS/3 ML VIAL. SQ SCH ×4 (07:30→21:00)
--- NOTE | 2019-08-10 09:49 | PDOC2 ---
CONSULT Date of Consult Date of Consult DATE: 08/10/19 TIME: 09:48 Reason for Consult Reason for Consult: Cirrhosis/ascites/abnl imaging Past Medical History Endocrine: Diabetes Past Surgical History Past Surgical History: No pertinent history Family History Family History: High Cholestrol, Hypertension Social History 1 pack per day ALCOHOL: other (Quit in 2004) Drugs: None Current Problem List Problem List Problems Medical Problems: (1) Ascites Status: Acute Current Medications Current Medications Current Medications Fentanyl Citrate (Fentanyl 2ml Vial) 50 mcg 1X ONCE IVP Last administered on 08/09/19at 13:36; Start 08/09/19 at 13:30; Stop 08/09/19 at 13:31; Status DC Sodium Chloride 1,000 ml @ 1,000 mls/hr 1X ONCE IV Last administered on 08/09/19at 13:36; Start 08/09/19 at 13:30; Stop 08/09/19 at 14:29; Status DC Iohexol (Omnipaque 350 Mg/ml) 100 ml 1X ONCE IV Last administered on 08/09/19at 14:23; Start 08/09/19 at 14:15; Stop 08/09/19 at 14:16; Status DC Info (CONTRAST GIVEN -- Rx MONITORING) 1 each PRN DAILY PRN MC SEE COMMENTS; Start 08/09/19 at 14:15; Stop 08/11/19 at 14:14 Sodium Chloride 1,000 ml @ 1,000 mls/hr 1X ONCE IV Last administered on 08/09/19at 14:35; Start 08/09/19 at 14:30; Stop 08/09/19 at 15:29; Status DC Ondansetron HCl (Zofran) 4 mg PRN Q8HRS PRN IV NAUSEA/VOMITING; Start 08/09/19 at 15:45; Stop 08/09/19 at 16:40; Status DC Fentanyl Citrate (Fentanyl 2ml Vial) 50 mcg PRN Q1HR PRN IV PAIN Last administered on 08/10/19at 02:42; Start 08/09/19 at 15:45; Stop 08/10/19 at 03:46; Status DC Ondansetron HCl (Zofran) 4 mg PRN Q4HRS PRN IV NAUSEA/VOMITING; Start 08/09/19 at 16:30 Insulin Glargine (Lantus Syringe) 5 unit QHS SQ ; Start 5/26/20 at 21:00 Insulin Human Lispro (HumaLOG) 0-7 UNITS TIDACHC SQ ; Start 08/09/19 at 21:00 Dextrose (Dextrose 50%-Water Syringe) 12.5 gm PRN Q15MIN PRN IV SEE COMMENTS Last administered on 08/10/19at 08:45; Start 08/09/19 at 17:15 Albuterol Sulfate (Ventolin Neb Soln) 2.5 mg PRN Q4HRS PRN NEB SHORTNESS OF BREATH; Start 08/09/19 at 17:15 Furosemide (Lasix) 20 mg 1X ONCE IVP Last administered on 08/09/19at 21:07; Start 08/09/19 at 17:45; Stop 08/09/19 at 17:46; Status DC Furosemide (Lasix) 20 mg DAILY PO ; Start 08/10/19 at 09:00 Spironolactone (Aldactone) 50 mg DAILY PO ; Start 08/10/19 at 09:00 Heparin Sodium (Porcine) (Heparin Sodium) 5,000 unit Q8HRS SQ Last administered on 08/09/19at 23:00; Start 08/09/19 at 22:00 Morphine Sulfate (Morphine Sulfate) 2 mg PRN Q2HR PRN IV SEVERE PAIN 7-10 Last administered on 08/10/19at 08:52; Start 08/10/19 at 03:45 Quetiapine Fumarate (SEROquel) 25 mg HS PO ; Start 08/10/19 at 21:00 Allergies Allergies: Coded Allergies: Penicillins (Verified Allergy, Intermediate, 08/10/19) Vitals VITALS Vital Signs Date Time Temp Pulse Resp B/P (MAP) Pulse Ox O2 Delivery O2 Flow Rate FiO2 08/10/19 08:52 Nasal Cannula 2.0 08/10/19 07:00 99.0 94 18 138/84 (102) 92 99.0 Labs Labs Laboratory Tests Test 08/09/19 13:28 08/09/19 16:47 08/09/19 17:20 08/09/19 21:07 White Blood Count 9.2 x10^3/uL (4.0-11.0) Red Blood Count 4.50 x10^6/uL (4.30-5.70) Hemoglobin 13.7 g/dL (13.0-17.5) Hematocrit 41.2 % (39.0-53.0) Mean Corpuscular Volume 92 fL (79-100) Mean Corpuscular Hemoglobin 31 pg (25-35) Mean Corpuscular Hemoglobin Concent 33 g/dL (31-37) Red Cell Distribution Width 14.8 % (11.5-14.5) Platelet Count 147 x10^3/uL (140-400) Neutrophils (%) (Auto) 71 % (31-73) Lymphocytes (%) (Auto) 17 % (24-48) Monocytes (%) (Auto) 10 % (0-9) Eosinophils (%) (Auto) 2 % (0-3) Basophils (%) (Auto) 1 % (0-3) Neutrophils # (Auto) 6.6 x10^3/uL (1.8-7.7) Lymphocytes # (Auto) 1.6 x10^3/uL (1.0-4.8) Monocytes # (Auto) 0.9 x10^3/uL (0.0-1.1) Eosinophils # (Auto) 0.1 x10^3/uL (0.0-0.7) Basophils # (Auto) 0.0 x10^3/uL (0.0-0.2) Prothrombin Time 13.3 SEC (11.7-14.0) Prothromb Time International Ratio 1.1 (0.8-1.1) Sodium Level 135 mmol/L (136-145) Potassium Level 4.0 mmol/L (3.5-5.1) Chloride Level 102 mmol/L (98-107) Carbon Dioxide Level 24 mmol/L (21-32) Anion Gap 9 (6-14) Blood Urea Nitrogen 14 mg/dL (8-26) Creatinine 0.7 mg/dL (0.7-1.3) Estimated GFR (Cockcroft-Gault) 114.3 BUN/Creatinine Ratio 20 (6-20) Glucose Level 208 mg/dL (70-99) Lactic Acid Level 3.1 mmol/L (0.4-2.0) 1.6 mmol/L (0.4-2.0) Calcium Level 8.5 mg/dL (8.5-10.1) Total Bilirubin 0.9 mg/dL (0.2-1.0) Aspartate Amino Transf (AST/SGOT) 213 U/L (15-37) Alanine Aminotransferase (ALT/SGPT) 75 U/L (16-63) Alkaline Phosphatase 464 U/L (46-116) Troponin I Quantitative < 0.017 ng/mL (0.000-0.055) Total Protein 5.9 g/dL (6.4-8.2) Albumin 2.7 g/dL (3.4-5.0) Albumin/Globulin Ratio 0.8 (1.0-1.7) Lipase 172 U/L (73-393) Glucose (Fingerstick) 52 mg/dL (70-99) 117 mg/dL (70-99) Hepatitis A IgM Antibody Nonreactive (Nonreactive) Hepatitis B Surface Antigen Nonreactive (Nonreactive) Hepatitis B Core IgM Antibody Nonreactive (Nonreactive) Hepatitis C IgG Antibody Reactive (Nonreactive) Test 08/09/19 22:18 08/10/19 02:06 08/10/19 08:21 Urine Collection Type Unknown Urine Color Dk yellow Urine Clarity Clear Urine pH 6.0 (<5.0-8.0) Urine Specific [place] >=1.030 (1.000-1.030) Urine Protein Negative mg/dL (NEG-TRACE) Urine Glucose (UA) Negative mg/dL (NEG) Urine Ketones (Stick) Negative mg/dL (NEG) Urine Blood Negative (NEG) Urine Nitrite Negative (NEG) Urine Bilirubin Negative (NEG) Urine Urobilinogen Dipstick 1.0 mg/dL (0.2 mg/dL) Urine Leukocyte Esterase Negative (NEG) Urine RBC 0 /HPF (0-2) Urine WBC Rare /HPF (0-4) Urine Squamous Epithelial Cells None /LPF Urine Bacteria 0 /HPF (0-FEW) Urine Mucus Mod /LPF Urine Opiates Screen Neg (NEG) Urine Methadone Screen Neg (NEG) Urine Barbiturates Neg (NEG) Urine Phencyclidine Screen Neg (NEG) Urine Amphetamine/Methamphetamine Pos (NEG) Urine Benzodiazepines Screen Neg (NEG) Urine Cocaine Screen Neg (NEG) Urine Cannabinoids Screen Neg (NEG) Urine Ethyl Alcohol Neg (NEG) White Blood Count 9.1 x10^3/uL (4.0-11.0) Red Blood Count 4.79 x10^6/uL (4.30-5.70) Hemoglobin 14.5 g/dL (13.0-17.5) Hematocrit 43.9 % (39.0-53.0) Mean Corpuscular Volume 92 fL (79-100) Mean Corpuscular Hemoglobin 30 pg (25-35) Mean Corpuscular Hemoglobin Concent 33 g/dL (31-37) Red Cell Distribution Width 15.1 % (11.5-14.5) Platelet Count 158 x10^3/uL (140-400) Neutrophils (%) (Auto) 68 % (31-73) Lymphocytes (%) (Auto) 18 % (24-48) Monocytes (%) (Auto) 10 % (0-9) Eosinophils (%) (Auto) 3 % (0-3) Basophils (%) (Auto) 1 % (0-3) Neutrophils # (Auto) 6.2 x10^3/uL (1.8-7.7) Lymphocytes # (Auto) 1.7 x10^3/uL (1.0-4.8) Monocytes # (Auto) 0.9 x10^3/uL (0.0-1.1) Eosinophils # (Auto) 0.3 x10^3/uL (0.0-0.7) Basophils # (Auto) 0.1 x10^3/uL (0.0-0.2) Sodium Level 139 mmol/L (136-145) Potassium Level 4.0 mmol/L (3.5-5.1) Chloride Level 102 mmol/L (98-107) Carbon Dioxide Level 25 mmol/L (21-32) Anion Gap 12 (6-14) Blood Urea Nitrogen 13 mg/dL (8-26) Creatinine 0.7 mg/dL (0.7-1.3) Estimated GFR (Cockcroft-Gault) 114.3 BUN/Creatinine Ratio 19 (6-20) Glucose Level 85 mg/dL (70-99) Calcium Level 8.4 mg/dL (8.5-10.1) Total Bilirubin 1.2 mg/dL (0.2-1.0) Aspartate Amino Transf (AST/SGOT) 229 U/L (15-37) Alanine Aminotransferase (ALT/SGPT) 77 U/L (16-63) Alkaline Phosphatase 465 U/L (46-116) Total Protein 6.0 g/dL (6.4-8.2) Albumin 2.6 g/dL (3.4-5.0) Albumin/Globulin Ratio 0.8 (1.0-1.7) Glucose (Fingerstick) 66 mg/dL (70-99) Laboratory Tests Test 08/09/19 13:28 08/09/19 16:47 08/09/19 17:20 08/09/19 21:07 White Blood Count 9.2 x10^3/uL (4.0-11.0) Red Blood Count 4.50 x10^6/uL (4.30-5.70) Hemoglobin 13.7 g/dL (13.0-17.5) Hematocrit 41.2 % (39.0-53.0) Mean Corpuscular Volume 92 fL (79-100) Mean Corpuscular Hemoglobin 31 pg (25-35) Mean Corpuscular Hemoglobin Concent 33 g/dL (31-37) Red Cell Distribution Width 14.8 % (11.5-14.5) Platelet Count 147 x10^3/uL (140-400) Neutrophils (%) (Auto) 71 % (31-73) Lymphocytes (%) (Auto) 17 % (24-48) Monocytes (%) (Auto) 10 % (0-9) Eosinophils (%) (Auto) 2 % (0-3) Basophils (%) (Auto) 1 % (0-3) Neutrophils # (Auto) 6.6 x10^3/uL (1.8-7.7) Lymphocytes # (Auto) 1.6 x10^3/uL (1.0-4.8) Monocytes # (Auto) 0.9 x10^3/uL (0.0-1.1) Eosinophils # (Auto) 0.1 x10^3/uL (0.0-0.7) Basophils # (Auto) 0.0 x10^3/uL (0.0-0.2) Prothrombin Time 13.3 SEC (11.7-14.0) Prothromb Time International Ratio 1.1 (0.8-1.1) Sodium Level 135 mmol/L (136-145) Potassium Level 4.0 mmol/L (3.5-5.1) Chloride Level 102 mmol/L (98-107) Carbon Dioxide Level 24 mmol/L (21-32) Anion Gap 9 (6-14) Blood Urea Nitrogen 14 mg/dL (8-26) Creatinine 0.7 mg/dL (0.7-1.3) Estimated GFR (Cockcroft-Gault) 114.3 BUN/Creatinine Ratio 20 (6-20) Glucose Level 208 mg/dL (70-99) Lactic Acid Level 3.1 mmol/L (0.4-2.0) 1.6 mmol/L (0.4-2.0) Calcium Level 8.5 mg/dL (8.5-10.1) Total Bilirubin 0.9 mg/dL (0.2-1.0) Aspartate Amino Transf (AST/SGOT) 213 U/L (15-37) Alanine Aminotransferase (ALT/SGPT) 75 U/L (16-63) Alkaline Phosphatase 464 U/L (46-116) Troponin I Quantitative < 0.017 ng/mL (0.000-0.055) Total Protein 5.9 g/dL (6.4-8.2) Albumin 2.7 g/dL (3.4-5.0) Albumin/Globulin Ratio 0.8 (1.0-1.7) Lipase 172 U/L (73-393) Glucose (Fingerstick) 52 mg/dL (70-99) 117 mg/dL (70-99) Hepatitis A IgM Antibody Nonreactive (Nonreactive) Hepatitis B Surface Antigen Nonreactive (Nonreactive) Hepatitis B Core IgM Antibody Nonreactive (Nonreactive) Hepatitis C IgG Antibody Reactive (Nonreactive) Test 08/09/19 22:18 08/10/19 02:06 08/10/19 08:21 Urine Collection Type Unknown Urine Color Dk yellow Urine Clarity Clear Urine pH 6.0 (<5.0-8.0) Urine Specific [place] >=1.030 (1.000-1.030) Urine Protein Negative mg/dL (NEG-TRACE) Urine Glucose (UA) Negative mg/dL (NEG) Urine Ketones (Stick) Negative mg/dL (NEG) Urine Blood Negative (NEG) Urine Nitrite Negative (NEG) Urine Bilirubin Negative (NEG) Urine Urobilinogen Dipstick 1.0 mg/dL (0.2 mg/dL) Urine Leukocyte Esterase Negative (NEG) Urine RBC 0 /HPF (0-2) Urine WBC Rare /HPF (0-4) Urine Squamous Epithelial Cells None /LPF Urine Bacteria 0 /HPF (0-FEW) Urine Mucus Mod /LPF Urine Opiates Screen Neg (NEG) Urine Methadone Screen Neg (NEG) Urine Barbiturates Neg (NEG) Urine Phencyclidine Screen Neg (NEG) Urine Amphetamine/Methamphetamine Pos (NEG) Urine Benzodiazepines Screen Neg (NEG) Urine Cocaine Screen Neg (NEG) Urine Cannabinoids Screen Neg (NEG) Urine Ethyl Alcohol Neg (NEG) White Blood Count 9.1 x10^3/uL (4.0-11.0) Red Blood Count 4.79 x10^6/uL (4.30-5.70) Hemoglobin 14.5 g/dL (13.0-17.5) Hematocrit 43.9 % (39.0-53.0) Mean Corpuscular Volume 92 fL (79-100) Mean Corpuscular Hemoglobin 30 pg (25-35) Mean Corpuscular Hemoglobin Concent 33 g/dL (31-37) Red Cell Distribution Width 15.1 % (11.5-14.5) Platelet Count 158 x10^3/uL (140-400) Neutrophils (%) (Auto) 68 % (31-73) Lymphocytes (%) (Auto) 18 % (24-48) Monocytes (%) (Auto) 10 % (0-9) Eosinophils (%) (Auto) 3 % (0-3) Basophils (%) (Auto) 1 % (0-3) Neutrophils # (Auto) 6.2 x10^3/uL (1.8-7.7) Lymphocytes # (Auto) 1.7 x10^3/uL (1.0-4.8) Monocytes # (Auto) 0.9 x10^3/uL (0.0-1.1) Eosinophils # (Auto) 0.3 x10^3/uL (0.0-0.7) Basophils # (Auto) 0.1 x10^3/uL (0.0-0.2) Sodium Level 139 mmol/L (136-145) Potassium Level 4.0 mmol/L (3.5-5.1) Chloride Level 102 mmol/L (98-107) Carbon Dioxide Level 25 mmol/L (21-32) Anion Gap 12 (6-14) Blood Urea Nitrogen 13 mg/dL (8-26) Creatinine 0.7 mg/dL (0.7-1.3) Estimated GFR (Cockcroft-Gault) 114.3 BUN/Creatinine Ratio 19 (6-20) Glucose Level 85 mg/dL (70-99) Calcium Level 8.4 mg/dL (8.5-10.1) Total Bilirubin 1.2 mg/dL (0.2-1.0) Aspartate Amino Transf (AST/SGOT) 229 U/L (15-37) Alanine Aminotransferase (ALT/SGPT) 77 U/L (16-63) Alkaline Phosphatase 465 U/L (46-116) Total Protein 6.0 g/dL (6.4-8.2) Albumin 2.6 g/dL (3.4-5.0) Albumin/Globulin Ratio 0.8 (1.0-1.7) Glucose (Fingerstick) 66 mg/dL (70-99) Assessment/Plan Assessment/Plan Cirrhosis- with asvites and abnl imaging. Metastatic malignancy liekly. Primary to be determined. TB less likely. Plan tumor markers MRI liver paracentesis with fluid analysis including cytology Full ntoe dictated BRITTA HERNANDEZ MD August 10, 2019 09:49
[2019-08-10] MEDS ORDERED: LIDOCAINE WITH 8.4% SOD BICARB 3 ML DISP.SYRIN. ONE (10:13)
[2019-08-10] MEDS ORDERED: LIDOCAINE WITH 8.4% SOD BICARB 3 ML DISP.SYRIN. INJ ONE (10:30)
--- NOTE | 2019-08-10 10:47 | PDOC ---
PROGRESS NOTES History of Present Illness History of Present Illness VTE Prophylaxis Ordered VTE Prophylaxis Devices: No VTE Pharmacological Prophylaxi: Yes Assessment/Plan Assessment/Plan A/P: Spontaneous ascites - almost certainly due to progression of cirrhosis of liver. Especially concerning that he has stopped drinking and is in SVR from his hep C. D/w IR to have diagnostic and therapeutic paracentesis in AM if possible. GI consulted as well. Cirrhosis - with splenomegaly and spontaneous ascites risk factors of hep C and history of EtOH abuse. nodular contour of the liver compatible with cirrhosis.// GI consulted. Transaminitis - likely related to acute decompensated liver failure or acute hepatitis or congestive hepatopathy. 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 Abdominal doppler would be appropriate after paracentesis and at that time can assess for possible portal thrombus as well Multiple pulmonary nodules. Also noted is a mass at the left base of the neck. In addition, multiple enlarged masses along the left side of the ascending thoracic aorta and anterior to a hiatal hernia and upper abdominal enlarged lymph nodes or masses. Pulm consulted, Hypoattenuation involving the liver which raises possibility of mass lesion - CA19-9 and CEA ordered. GI consulted COPD - prn nebs ordered Diabetes-Type II - basal bolus plus insulin while inpatient Hypertension - will reconcile meds with [facility] H/o Hep C s/p SVR treatment - will check acute hepatitis panel. Will d/w GI if PCR is appropriate FEN - ADA diet, NPO after midnight PPX - heparin TID FULL CODE Dispo - inpatient consult GI MRI of the liver with tumor markers 39 MIN pt exam, chart review, > 50% of time spent with exam, chart review, pt care coordination Vitals Vitals Vital Signs Date Time Temp Pulse Resp B/P (MAP) Pulse Ox O2 Delivery O2 Flow Rate FiO2 08/10/19 10:39 92 147/75 (99) 97 Nasal Cannula 2.0 08/10/19 07:00 99.0 18 99.0 Physical Exam General: Alert, Oriented X3, Cooperative, moderate distress Abdomen: Normal bowel sounds, Soft, No hepatosplenomegaly, No masses, Other (positive fluid wave, large ascites) Extremities: No clubbing, No cyanosis, No edema, Normal pulses, No tenderness/swelling Skin: No rashes, No breakdown, No significant lesion Labs LABS SEX: M EXAM STATUS: PRE ER ORD. PHYSICIAN: ENRIKE LITTLE APRN REASON: ABDOMINAL PAIN S/P HEAVY LIFTING, FELT POP IN CHEST. SOA PROCEDURE: CT ANGIO CHEST ABD PELVIS Examination: CT ANGIO CHEST ABD PELVIS History: Shortness of breath, abdominal pain Comparison/Correlation: None Findings: Axial images of chest, abdomen, and pelvis obtained following IV contrast and arteriography protocol. Sagittal and coronal reformatted images were provided. 3-D volume rendered images of the aorta were provided. Maximum intensity projection images were provided. At the left base of the neck, there is a heterogeneous intermediate density structure present. It is present just lateral to the left thyroid lobe and abuts the posterior margin of the left common carotid artery. It measures 3.3 cm x 3 cm x 3.8 cm longitudinal. It is well-circumscribed. There is a fat plane between this mass lesion in the left thyroid lobe. Assessment of the aortic arch branches is somewhat limited due to artifact related to contrast within the left brachiocephalic vein and superior vena cava. Thoracic aorta is unremarkable with no evidence of dissection or aneurysm. There is scattered atheromatous involvement of the abdominal aorta. There is excellent pulmonary arterial opacification. No thromboembolic disease identified. Very high-grade stenosis of the celiac artery just distal to its origin is noted. Similar mesenteric arteries widely patent. Approximately 30 percent stenosis of the superior mesenteric artery origin is noted. Significant calcific involvement of the common iliac arteries is noted. Bilateral main renal arteries are widely patent. Marked left anterior descending coronary vessel calcification is noted. Mild emphysematous involvement of the lung kong diffusely seen. Minimal right left costophrenic sulcus atelectasis is present. Minimal left basilar aspects of atelectasis. Several pulmonary nodules bilaterally present. Most do not appear to have calcific components. Largest of these on the left at the midthoracic level laterally within the upper lobe on axial image 41 measures 0.8 cm x 0.6 mm. A left posterior basilar aspect, there is a 1.1 cm x 0.5 cm nodule on axial image 59. The right mid thoracic level within the upper lobe along the major fissure, there is a 0.7 cm diameter nodule. Possibility of this representing a perifissural lymph node is raised considering its location. Other nodules present mostly not adjacent to the fissure. Small hiatal hernia is present. There is an enlarged lymph node anterior to the hiatal hernia on axial image 72 measuring 3.5 cm x 2.9 cm. Smaller lymph nodes or masses along the left side of the descending thoracic aorta are present on axial image 61. Largest of these measures 2 cm diameter. Significant nodular contour of the liver compatible with cirrhosis. There is a hypoenhancing region involving the liver inferior to the level of the middle hepatic vein on axial image 82 measuring 4.2 cm x 3 cm.Splenomegaly is present with 17 cm in longitudinal measurement. Adrenal glands are normal. Kidneys are unremarkable. Pancreas is unremarkable. Gallbladder fossa is unremarkable. No bowel obstruction. Appendix is normal. Diverticulosis is mild. Moderate amount of ascites is noted involving the abdomen and pelvis. Nonenlarged lymph nodes are present involving the retroperitoneum. Masses present just superior to the pancreatic neck measuring 4.2 cm x 4.3 cm. Additional masses present along the posterior inferior margin of the gastric cardia with heterogeneous enhancement. It measures 4.5 cm x 3.4 cm. Urinary bladder is unremarkable. Degenerative disc space narrowing of the cervical spine noted. Impression: No aortic dissection or aneurysm. Atherosclerotic calcific involvement is present. 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 No pulmonary arterial thromboembolic disease. Multiple pulmonary nodules. Mass at the left base of the neck. Multiple enlarged masses along the left side of the ascending thoracic aorta and anterior to a hiatal hernia. Upper abdominal enlarged lymph nodes or masses. Metastatic etiology is of concern. Hepatic cirrhosis with splenomegaly. Hypoattenuation involving the liver which raises possibility of mass lesion is noted. Further evaluation MRI of the liver without and with contrast should be considered for more definitive assessment. Moderate to large amount of ascites. Marked coronary arterial calcification. Correlate clinically for underlying coronary disease. PQRS Compliance Statement: One or more of the following individualized dose reduction techniques were utilized for this examination: 1. Automated exposure control 2. Adjustment of the mA and/or kV according to patient size 3. Use of iterative reconstruction technique Electronically signed by: Augustus Bradley MD (08/09/2019 3:09 PM) [id number] DICTATED and SIGNED BY: AUGUSTUS BRADLEY MD Laboratory Tests Test 08/09/19 13:28 08/09/19 16:47 08/09/19 17:20 08/09/19 21:07 White Blood Count 9.2 x10^3/uL (4.0-11.0) Red Blood Count 4.50 x10^6/uL (4.30-5.70) Hemoglobin 13.7 g/dL (13.0-17.5) Hematocrit 41.2 % (39.0-53.0) Mean Corpuscular Volume 92 fL (79-100) Mean Corpuscular Hemoglobin 31 pg (25-35) Mean Corpuscular Hemoglobin Concent 33 g/dL (31-37) Red Cell Distribution Width 14.8 % (11.5-14.5) Platelet Count 147 x10^3/uL (140-400) Neutrophils (%) (Auto) 71 % (31-73) Lymphocytes (%) (Auto) 17 % (24-48) Monocytes (%) (Auto) 10 % (0-9) Eosinophils (%) (Auto) 2 % (0-3) Basophils (%) (Auto) 1 % (0-3) Neutrophils # (Auto) 6.6 x10^3/uL (1.8-7.7) Lymphocytes # (Auto) 1.6 x10^3/uL (1.0-4.8) Monocytes # (Auto) 0.9 x10^3/uL (0.0-1.1) Eosinophils # (Auto) 0.1 x10^3/uL (0.0-0.7) Basophils # (Auto) 0.0 x10^3/uL (0.0-0.2) Prothrombin Time 13.3 SEC (11.7-14.0) Prothromb Time International Ratio 1.1 (0.8-1.1) Sodium Level 135 mmol/L (136-145) Potassium Level 4.0 mmol/L (3.5-5.1) Chloride Level 102 mmol/L (98-107) Carbon Dioxide Level 24 mmol/L (21-32) Anion Gap 9 (6-14) Blood Urea Nitrogen 14 mg/dL (8-26) Creatinine 0.7 mg/dL (0.7-1.3) Estimated GFR (Cockcroft-Gault) 114.3 BUN/Creatinine Ratio 20 (6-20) Glucose Level 208 mg/dL (70-99) Lactic Acid Level 3.1 mmol/L (0.4-2.0) 1.6 mmol/L (0.4-2.0) Calcium Level 8.5 mg/dL (8.5-10.1) Total Bilirubin 0.9 mg/dL (0.2-1.0) Aspartate Amino Transf (AST/SGOT) 213 U/L (15-37) Alanine Aminotransferase (ALT/SGPT) 75 U/L (16-63) Alkaline Phosphatase 464 U/L (46-116) Troponin I Quantitative < 0.017 ng/mL (0.000-0.055) Total Protein 5.9 g/dL (6.4-8.2) Albumin 2.7 g/dL (3.4-5.0) Albumin/Globulin Ratio 0.8 (1.0-1.7) Lipase 172 U/L (73-393) Glucose (Fingerstick) 52 mg/dL (70-99) 117 mg/dL (70-99) Hepatitis A IgM Antibody Nonreactive (Nonreactive) Hepatitis B Surface Antigen Nonreactive (Nonreactive) Hepatitis B Core IgM Antibody Nonreactive (Nonreactive) Hepatitis C IgG Antibody Reactive (Nonreactive) Test 08/09/19 22:18 08/10/19 02:06 08/10/19 08:21 08/10/19 10:10 Urine Collection Type Unknown Urine Color Dk yellow Urine Clarity Clear Urine pH 6.0 (<5.0-8.0) Urine Specific [place] >=1.030 (1.000-1.030) Urine Protein Negative mg/dL (NEG-TRACE) Urine Glucose (UA) Negative mg/dL (NEG) Urine Ketones (Stick) Negative mg/dL (NEG) Urine Blood Negative (NEG) Urine Nitrite Negative (NEG) Urine Bilirubin Negative (NEG) Urine Urobilinogen Dipstick 1.0 mg/dL (0.2 mg/dL) Urine Leukocyte Esterase Negative (NEG) Urine RBC 0 /HPF (0-2) Urine WBC Rare /HPF (0-4) Urine Squamous Epithelial Cells None /LPF Urine Bacteria 0 /HPF (0-FEW) Urine Mucus Mod /LPF Urine Opiates Screen Neg (NEG) Urine Methadone Screen Neg (NEG) Urine Barbiturates Neg (NEG) Urine Phencyclidine Screen Neg (NEG) Urine Amphetamine/Methamphetamine Pos (NEG) Urine Benzodiazepines Screen Neg (NEG) Urine Cocaine Screen Neg (NEG) Urine Cannabinoids Screen Neg (NEG) Urine Ethyl Alcohol Neg (NEG) White Blood Count 9.1 x10^3/uL (4.0-11.0) Red Blood Count 4.79 x10^6/uL (4.30-5.70) Hemoglobin 14.5 g/dL (13.0-17.5) Hematocrit 43.9 % (39.0-53.0) Mean Corpuscular Volume 92 fL (79-100) Mean Corpuscular Hemoglobin 30 pg (25-35) Mean Corpuscular Hemoglobin Concent 33 g/dL (31-37) Red Cell Distribution Width 15.1 % (11.5-14.5) Platelet Count 158 x10^3/uL (140-400) Neutrophils (%) (Auto) 68 % (31-73) Lymphocytes (%) (Auto) 18 % (24-48) Monocytes (%) (Auto) 10 % (0-9) Eosinophils (%) (Auto) 3 % (0-3) Basophils (%) (Auto) 1 % (0-3) Neutrophils # (Auto) 6.2 x10^3/uL (1.8-7.7) Lymphocytes # (Auto) 1.7 x10^3/uL (1.0-4.8) Monocytes # (Auto) 0.9 x10^3/uL (0.0-1.1) Eosinophils # (Auto) 0.3 x10^3/uL (0.0-0.7) Basophils # (Auto) 0.1 x10^3/uL (0.0-0.2) Sodium Level 139 mmol/L (136-145) Potassium Level 4.0 mmol/L (3.5-5.1) Chloride Level 102 mmol/L (98-107) Carbon Dioxide Level 25 mmol/L (21-32) Anion Gap 12 (6-14) Blood Urea Nitrogen 13 mg/dL (8-26) Creatinine 0.7 mg/dL (0.7-1.3) Estimated GFR (Cockcroft-Gault) 114.3 BUN/Creatinine Ratio 19 (6-20) Glucose Level 85 mg/dL (70-99) Calcium Level 8.4 mg/dL (8.5-10.1) Total Bilirubin 1.2 mg/dL (0.2-1.0) Aspartate Amino Transf (AST/SGOT) 229 U/L (15-37) Alanine Aminotransferase (ALT/SGPT) 77 U/L (16-63) Alkaline Phosphatase 465 U/L (46-116) Total Protein 6.0 g/dL (6.4-8.2) Albumin 2.6 g/dL (3.4-5.0) Albumin/Globulin Ratio 0.8 (1.0-1.7) Glucose (Fingerstick) 66 mg/dL (70-99) 94 mg/dL (70-99) Assessment and Plan Assessmemt and Plan Problems Medical Problems: (1) Ascites Status: Acute Multiple pulmonary nodules. Mass at the left base of the neck. Multiple enlarged masses along the left side of the ascending thoracic aorta and anterior to a hiatal hernia. Upper abdominal enlarged lymph nodes or masses. Metastatic etiology is of concern. Comment Review of Relevant I have reviewed the following items adilson (where applicable) has been applied. Labs Laboratory Tests Test 08/09/19 13:28 08/09/19 16:47 08/09/19 17:20 08/09/19 21:07 White Blood Count 9.2 x10^3/uL (4.0-11.0) Red Blood Count 4.50 x10^6/uL (4.30-5.70) Hemoglobin 13.7 g/dL (13.0-17.5) Hematocrit 41.2 % (39.0-53.0) Mean Corpuscular Volume 92 fL (79-100) Mean Corpuscular Hemoglobin 31 pg (25-35) Mean Corpuscular Hemoglobin Concent 33 g/dL (31-37) Red Cell Distribution Width 14.8 % (11.5-14.5) Platelet Count 147 x10^3/uL (140-400) Neutrophils (%) (Auto) 71 % (31-73) Lymphocytes (%) (Auto) 17 % (24-48) Monocytes (%) (Auto) 10 % (0-9) Eosinophils (%) (Auto) 2 % (0-3) Basophils (%) (Auto) 1 % (0-3) Neutrophils # (Auto) 6.6 x10^3/uL (1.8-7.7) Lymphocytes # (Auto) 1.6 x10^3/uL (1.0-4.8) Monocytes # (Auto) 0.9 x10^3/uL (0.0-1.1) Eosinophils # (Auto) 0.1 x10^3/uL (0.0-0.7) Basophils # (Auto) 0.0 x10^3/uL (0.0-0.2) Prothrombin Time 13.3 SEC (11.7-14.0) Prothromb Time International Ratio 1.1 (0.8-1.1) Sodium Level 135 mmol/L (136-145) Potassium Level 4.0 mmol/L (3.5-5.1) Chloride Level 102 mmol/L (98-107) Carbon Dioxide Level 24 mmol/L (21-32) Anion Gap 9 (6-14) Blood Urea Nitrogen 14 mg/dL (8-26) Creatinine 0.7 mg/dL (0.7-1.3) Estimated GFR (Cockcroft-Gault) 114.3 BUN/Creatinine Ratio 20 (6-20) Glucose Level 208 mg/dL (70-99) Lactic Acid Level 3.1 mmol/L (0.4-2.0) 1.6 mmol/L (0.4-2.0) Calcium Level 8.5 mg/dL (8.5-10.1) Total Bilirubin 0.9 mg/dL (0.2-1.0) Aspartate Amino Transf (AST/SGOT) 213 U/L (15-37) Alanine Aminotransferase (ALT/SGPT) 75 U/L (16-63) Alkaline Phosphatase 464 U/L (46-116) Troponin I Quantitative < 0.017 ng/mL (0.000-0.055) Total Protein 5.9 g/dL (6.4-8.2) Albumin 2.7 g/dL (3.4-5.0) Albumin/Globulin Ratio 0.8 (1.0-1.7) Lipase 172 U/L (73-393) Glucose (Fingerstick) 52 mg/dL (70-99) 117 mg/dL (70-99) Hepatitis A IgM Antibody Nonreactive (Nonreactive) Hepatitis B Surface Antigen Nonreactive (Nonreactive) Hepatitis B Core IgM Antibody Nonreactive (Nonreactive) Hepatitis C IgG Antibody Reactive (Nonreactive) Test 08/09/19 22:18 08/10/19 02:06 08/10/19 08:21 08/10/19 10:10 Urine Collection Type Unknown Urine Color Dk yellow Urine Clarity Clear Urine pH 6.0 (<5.0-8.0) Urine Specific [place] >=1.030 (1.000-1.030) Urine Protein Negative mg/dL (NEG-TRACE) Urine Glucose (UA) Negative mg/dL (NEG) Urine Ketones (Stick) Negative mg/dL (NEG) Urine Blood Negative (NEG) Urine Nitrite Negative (NEG) Urine Bilirubin Negative (NEG) Urine Urobilinogen Dipstick 1.0 mg/dL (0.2 mg/dL) Urine Leukocyte Esterase Negative (NEG) Urine RBC 0 /HPF (0-2) Urine WBC Rare /HPF (0-4) Urine Squamous Epithelial Cells None /LPF Urine Bacteria 0 /HPF (0-FEW) Urine Mucus Mod /LPF Urine Opiates Screen Neg (NEG) Urine Methadone Screen Neg (NEG) Urine Barbiturates Neg (NEG) Urine Phencyclidine Screen Neg (NEG) Urine Amphetamine/Methamphetamine Pos (NEG) Urine Benzodiazepines Screen Neg (NEG) Urine Cocaine Screen Neg (NEG) Urine Cannabinoids Screen Neg (NEG) Urine Ethyl Alcohol Neg (NEG) White Blood Count 9.1 x10^3/uL (4.0-11.0) Red Blood Count 4.79 x10^6/uL (4.30-5.70) Hemoglobin 14.5 g/dL (13.0-17.5) Hematocrit 43.9 % (39.0-53.0) Mean Corpuscular Volume 92 fL (79-100) Mean Corpuscular Hemoglobin 30 pg (25-35) Mean Corpuscular Hemoglobin Concent 33 g/dL (31-37) Red Cell Distribution Width 15.1 % (11.5-14.5) Platelet Count 158 x10^3/uL (140-400) Neutrophils (%) (Auto) 68 % (31-73) Lymphocytes (%) (Auto) 18 % (24-48) Monocytes (%) (Auto) 10 % (0-9) Eosinophils (%) (Auto) 3 % (0-3) Basophils (%) (Auto) 1 % (0-3) Neutrophils # (Auto) 6.2 x10^3/uL (1.8-7.7) Lymphocytes # (Auto) 1.7 x10^3/uL (1.0-4.8) Monocytes # (Auto) 0.9 x10^3/uL (0.0-1.1) Eosinophils # (Auto) 0.3 x10^3/uL (0.0-0.7) Basophils # (Auto) 0.1 x10^3/uL (0.0-0.2) Sodium Level 139 mmol/L (136-145) Potassium Level 4.0 mmol/L (3.5-5.1) Chloride Level 102 mmol/L (98-107) Carbon Dioxide Level 25 mmol/L (21-32) Anion Gap 12 (6-14) Blood Urea Nitrogen 13 mg/dL (8-26) Creatinine 0.7 mg/dL (0.7-1.3) Estimated GFR (Cockcroft-Gault) 114.3 BUN/Creatinine Ratio 19 (6-20) Glucose Level 85 mg/dL (70-99) Calcium Level 8.4 mg/dL (8.5-10.1) Total Bilirubin 1.2 mg/dL (0.2-1.0) Aspartate Amino Transf (AST/SGOT) 229 U/L (15-37) Alanine Aminotransferase (ALT/SGPT) 77 U/L (16-63) Alkaline Phosphatase 465 U/L (46-116) Total Protein 6.0 g/dL (6.4-8.2) Albumin 2.6 g/dL (3.4-5.0) Albumin/Globulin Ratio 0.8 (1.0-1.7) Glucose (Fingerstick) 66 mg/dL (70-99) 94 mg/dL (70-99) Laboratory Tests Test 08/09/19 13:28 08/09/19 16:47 08/09/19 17:20 08/09/19 21:07 White Blood Count 9.2 x10^3/uL (4.0-11.0) Red Blood Count 4.50 x10^6/uL (4.30-5.70) Hemoglobin 13.7 g/dL (13.0-17.5) Hematocrit 41.2 % (39.0-53.0) Mean Corpuscular Volume 92 fL (79-100) Mean Corpuscular Hemoglobin 31 pg (25-35) Mean Corpuscular Hemoglobin Concent 33 g/dL (31-37) Red Cell Distribution Width 14.8 % (11.5-14.5) Platelet Count 147 x10^3/uL (140-400) Neutrophils (%) (Auto) 71 % (31-73) Lymphocytes (%) (Auto) 17 % (24-48) Monocytes (%) (Auto) 10 % (0-9) Eosinophils (%) (Auto) 2 % (0-3) Basophils (%) (Auto) 1 % (0-3) Neutrophils # (Auto) 6.6 x10^3/uL (1.8-7.7) Lymphocytes # (Auto) 1.6 x10^3/uL (1.0-4.8) Monocytes # (Auto) 0.9 x10^3/uL (0.0-1.1) Eosinophils # (Auto) 0.1 x10^3/uL (0.0-0.7) Basophils # (Auto) 0.0 x10^3/uL (0.0-0.2) Prothrombin Time 13.3 SEC (11.7-14.0) Prothromb Time International Ratio 1.1 (0.8-1.1) Sodium Level 135 mmol/L (136-145) Potassium Level 4.0 mmol/L (3.5-5.1) Chloride Level 102 mmol/L (98-107) Carbon Dioxide Level 24 mmol/L (21-32) Anion Gap 9 (6-14) Blood Urea Nitrogen 14 mg/dL (8-26) Creatinine 0.7 mg/dL (0.7-1.3) Estimated GFR (Cockcroft-Gault) 114.3 BUN/Creatinine Ratio 20 (6-20) Glucose Level 208 mg/dL (70-99) Lactic Acid Level 3.1 mmol/L (0.4-2.0) 1.6 mmol/L (0.4-2.0) Calcium Level 8.5 mg/dL (8.5-10.1) Total Bilirubin 0.9 mg/dL (0.2-1.0) Aspartate Amino Transf (AST/SGOT) 213 U/L (15-37) Alanine Aminotransferase (ALT/SGPT) 75 U/L (16-63) Alkaline Phosphatase 464 U/L (46-116) Troponin I Quantitative < 0.017 ng/mL (0.000-0.055) Total Protein 5.9 g/dL (6.4-8.2) Albumin 2.7 g/dL (3.4-5.0) Albumin/Globulin Ratio 0.8 (1.0-1.7) Lipase 172 U/L (73-393) Glucose (Fingerstick) 52 mg/dL (70-99) 117 mg/dL (70-99) Hepatitis A IgM Antibody Nonreactive (Nonreactive) Hepatitis B Surface Antigen Nonreactive (Nonreactive) Hepatitis B Core IgM Antibody Nonreactive (Nonreactive) Hepatitis C IgG Antibody Reactive (Nonreactive) Test 08/09/19 22:18 08/10/19 02:06 08/10/19 08:21 08/10/19 10:10 Urine Collection Type Unknown Urine Color Dk yellow Urine Clarity Clear Urine pH 6.0 (<5.0-8.0) Urine Specific [place] >=1.030 (1.000-1.030) Urine Protein Negative mg/dL (NEG-TRACE) Urine Glucose (UA) Negative mg/dL (NEG) Urine Ketones (Stick) Negative mg/dL (NEG) Urine Blood Negative (NEG) Urine Nitrite Negative (NEG) Urine Bilirubin Negative (NEG) Urine Urobilinogen Dipstick 1.0 mg/dL (0.2 mg/dL) Urine Leukocyte Esterase Negative (NEG) Urine RBC 0 /HPF (0-2) Urine WBC Rare /HPF (0-4) Urine Squamous Epithelial Cells None /LPF Urine Bacteria 0 /HPF (0-FEW) Urine Mucus Mod /LPF Urine Opiates Screen Neg (NEG) Urine Methadone Screen Neg (NEG) Urine Barbiturates Neg (NEG) Urine Phencyclidine Screen Neg (NEG) Urine Amphetamine/Methamphetamine Pos (NEG) Urine Benzodiazepines Screen Neg (NEG) Urine Cocaine Screen Neg (NEG) Urine Cannabinoids Screen Neg (NEG) Urine Ethyl Alcohol Neg (NEG) White Blood Count 9.1 x10^3/uL (4.0-11.0) Red Blood Count 4.79 x10^6/uL (4.30-5.70) Hemoglobin 14.5 g/dL (13.0-17.5) Hematocrit 43.9 % (39.0-53.0) Mean Corpuscular Volume 92 fL (79-100) Mean Corpuscular Hemoglobin 30 pg (25-35) Mean Corpuscular Hemoglobin Concent 33 g/dL (31-37) Red Cell Distribution Width 15.1 % (11.5-14.5) Platelet Count 158 x10^3/uL (140-400) Neutrophils (%) (Auto) 68 % (31-73) Lymphocytes (%) (Auto) 18 % (24-48) Monocytes (%) (Auto) 10 % (0-9) Eosinophils (%) (Auto) 3 % (0-3) Basophils (%) (Auto) 1 % (0-3) Neutrophils # (Auto) 6.2 x10^3/uL (1.8-7.7) Lymphocytes # (Auto) 1.7 x10^3/uL (1.0-4.8) Monocytes # (Auto) 0.9 x10^3/uL (0.0-1.1) Eosinophils # (Auto) 0.3 x10^3/uL (0.0-0.7) Basophils # (Auto) 0.1 x10^3/uL (0.0-0.2) Sodium Level 139 mmol/L (136-145) Potassium Level 4.0 mmol/L (3.5-5.1) Chloride Level 102 mmol/L (98-107) Carbon Dioxide Level 25 mmol/L (21-32) Anion Gap 12 (6-14) Blood Urea Nitrogen 13 mg/dL (8-26) Creatinine 0.7 mg/dL (0.7-1.3) Estimated GFR (Cockcroft-Gault) 114.3 BUN/Creatinine Ratio 19 (6-20) Glucose Level 85 mg/dL (70-99) Calcium Level 8.4 mg/dL (8.5-10.1) Total Bilirubin 1.2 mg/dL (0.2-1.0) Aspartate Amino Transf (AST/SGOT) 229 U/L (15-37) Alanine Aminotransferase (ALT/SGPT) 77 U/L (16-63) Alkaline Phosphatase 465 U/L (46-116) Total Protein 6.0 g/dL (6.4-8.2) Albumin 2.6 g/dL (3.4-5.0) Albumin/Globulin Ratio 0.8 (1.0-1.7) Glucose (Fingerstick) 66 mg/dL (70-99) 94 mg/dL (70-99) Medications Current Medications Fentanyl Citrate (Fentanyl 2ml Vial) 50 mcg 1X ONCE IVP Last administered on 08/09/19at 13:36; Start 08/09/19 at 13:30; Stop 08/09/19 at 13:31; Status DC Sodium Chloride 1,000 ml @ 1,000 mls/hr 1X ONCE IV Last administered on 08/09/19at 13:36; Start 08/09/19 at 13:30; Stop 08/09/19 at 14:29; Status DC Iohexol (Omnipaque 350 Mg/ml) 100 ml 1X ONCE IV Last administered on 08/09/19at 14:23; Start 08/09/19 at 14:15; Stop 08/09/19 at 14:16; Status DC Info (CONTRAST GIVEN -- Rx MONITORING) 1 each PRN DAILY PRN MC SEE COMMENTS; Start 08/09/19 at 14:15; Stop 08/11/19 at 14:14 Sodium Chloride 1,000 ml @ 1,000 mls/hr 1X ONCE IV Last administered on 08/09/19at 14:35; Start 08/09/19 at 14:30; Stop 08/09/19 at 15:29; Status DC Ondansetron HCl (Zofran) 4 mg PRN Q8HRS PRN IV NAUSEA/VOMITING; Start 08/09/19 at 15:45; Stop 08/09/19 at 16:40; Status DC Fentanyl Citrate (Fentanyl 2ml Vial) 50 mcg PRN Q1HR PRN IV PAIN Last administered on 08/10/19at 02:42; Start 08/09/19 at 15:45; Stop 08/10/19 at 03:46; Status DC Ondansetron HCl (Zofran) 4 mg PRN Q4HRS PRN IV NAUSEA/VOMITING; Start 08/09/19 at 16:30 Insulin Glargine (Lantus Syringe) 5 unit QHS SQ ; Start 08/09/19 at 21:00 Insulin Human Lispro (HumaLOG) 0-7 UNITS TIDACHC SQ ; Start 08/09/19 at 21:00 Dextrose (Dextrose 50%-Water Syringe) 12.5 gm PRN Q15MIN PRN IV SEE COMMENTS Last administered on 08/10/19at 08:45; Start 08/09/19 at 17:15 Albuterol Sulfate (Ventolin Neb Soln) 2.5 mg PRN Q4HRS PRN NEB SHORTNESS OF BREATH; Start 08/09/19 at 17:15 Furosemide (Lasix) 20 mg 1X ONCE IVP Last administered on 08/09/19at 21:07; Start 08/09/19 at 17:45; Stop 08/09/19 at 17:46; Status DC Furosemide (Lasix) 20 mg DAILY PO ; Start 08/10/19 at 09:00 Spironolactone (Aldactone) 50 mg DAILY PO ; Start 08/10/19 at 09:00 Heparin Sodium (Porcine) (Heparin Sodium) 5,000 unit Q8HRS SQ Last administered on 08/09/19at 23:00; Start 08/09/19 at 22:00 Morphine Sulfate (Morphine Sulfate) 2 mg PRN Q2HR PRN IV SEVERE PAIN 7-10 Last administered on 08/10/19at 08:52; Start 08/10/19 at 03:45 Quetiapine Fumarate (SEROquel) 25 mg HS PO ; Start 08/10/19 at 21:00 Lidocaine HCl (Buffered Lidocaine 1%) 3 ml STK-MED ONCE .ROUTE ; Start 08/10/19 at 10:13; Stop 08/10/19 at 10:14; Status DC Lidocaine HCl (Buffered Lidocaine 1%) 6 ml 1X ONCE INJ Last administered on 08/10/19at 10:21; Start 08/10/19 at 10:30; Stop 08/10/19 at 10:31; Status DC Vitals/I & O Vital Sign - Last 24 Hours 08/09/19 08/09/19 08/09/19 08/09/19 13:23 13:36 13:46 14:33 Temp 98.0 98.0 Pulse 110 100 98 Resp 30 24 28 28 B/P (MAP) 149/90 (109) 153/83 (106) 144/81 (102) Pulse Ox 96 96 94 O2 Delivery Nasal Cannula Nasal Cannula Nasal Cannula O2 Flow Rate 2.0 2.0 2.0 08/09/19 08/09/19 08/09/19 08/09/19 15:03 15:33 16:40 17:00 Temp 98.5 98.5 Pulse 96 82 61 Resp 20 B/P (MAP) 143/81 (101) 148/81 (103) 134/76 (95) Pulse Ox 95 95 94 O2 Delivery Nasal Cannula Nasal Cannula Nasal Cannula Nasal Cannula O2 Flow Rate 2.0 2.0 2.0 2.0 08/09/19 08/09/19 08/09/19 08/09/19 19:15 20:00 20:41 23:06 Temp 98.5 98.7 98.5 98.7 Pulse 94 100 Resp 22 B/P (MAP) 152/87 (108) 124/85 (98) Pulse Ox 94 94 93 O2 Delivery Nasal Cannula Nasal Cannula Nasal Cannula O2 Flow Rate 2.0 2.0 2.0 08/10/19 08/10/19 08/10/19 08/10/19 03:18 07:00 08:00 08:52 Temp 98.6 99.0 98.6 99.0 Pulse 80 94 Resp 18 B/P (MAP) 141/80 (100) 138/84 (102) Pulse Ox 94 92 O2 Delivery Nasal Cannula Room Air Nasal Cannula Nasal Cannula O2 Flow Rate 2.0 2.0 2.0 08/10/19 08/10/19 10:25 10:39 Pulse 89 92 B/P (MAP) 149/76 (100) 147/75 (99) Pulse Ox 92 97 O2 Delivery Nasal Cannula Nasal Cannula O2 Flow Rate 2.0 2.0 Intake and Output 08/09/19 08/09/19 08/10/19 15:00 23:00 07:00 Intake Total 200 ml 0 ml Balance 200 ml 0 ml MONICA MUSTAFA MD August 10, 2019 10:47
--- NOTE | 2019-08-10 10:54 | CONS ---
DATE OF CONSULTATION: 08/10/2019 REFERRING PHYSICIAN: Dr. Moy. REASON FOR CONSULTATION: Ascites, cirrhosis, abnormal CAT scan. HISTORY OF PRESENT ILLNESS: A 64-year-old male with past medical history significant for COPD, diabetes, hypertension, cirrhosis, status post hep C therapy with SVR is admitted with a 3-week history of abdominal distention, discomfort. The patient states that he has recently been feeling poorly. 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 With the continued findings, consultation is requested. PAST MEDICAL HISTORY: Hep C, COPD, diabetes, hypertension. ALLERGIES: PENICILLIN. MEDICATIONS: Seroquel, Aldactone, Lasix, morphine, Humalog, insulin, Ventolin. SOCIAL HISTORY: He is retired . Former drinker. FAMILY HISTORY: Significant for hypertension, hyperlipidemia, present smoker. REVIEW OF SYSTEMS: Per records. PHYSICAL EXAMINATION: GENERAL: Reveals a disabled, male who is alert, cooperative, in mild distress. VITAL SIGNS: Temperature 99, pulse 94, respiratory rate 18, blood pressure is 134/84. LUNGS: Reveal decreased breath sounds. CARDIOVASCULAR: S1, S2 without S3, S4 or appreciable murmur. ABDOMEN: Reveals a soft abdomen, which is distended with mild tenderness throughout. EXTREMITIES: Reveals edema 2+. LABORATORY STUDIES: Hemoglobin 14.9, hematocrit 43.9, white count 9.1, platelet count 158,000. Sodium 139, potassium 4.0, chloride 102, bicarbonate 25, BUN 13, creatinine is 0.7, glucose 85, calcium 8.4, total bilirubin 1.2, AST of 20 to 29, ALT 77, alkaline phosphatase 465, total protein 6.0, albumin 2.6. Stated INR is 1.1. Additional serologies presently are pending including CA 19-9, AFP, CEA levels and MRI of the liver. IMPRESSION: Cirrhosis with ascites and lymphadenopathy certainly is worrisome for metastatic cancer, primary liver and/or pancreatic malignancy will be the differential. We will await tumor markers and the MRI of the liver prior to potential further studies including liver biopsy, lymph node biopsy and/or endoscopy. BRITTA HERNANDEZ MD DR: Lan JOB#: [id number] / [id number]
[2019-08-10] MEDS ORDERED: ALBUMIN HUMAN 25% 100 ML IV ONE (11:00)
--- NOTE | 2019-08-10 12:26 | CONS ---
DATE OF CONSULTATION: PULMONARY CONSULTATION ATTENDING PHYSICIAN: Dr. Moy. REASON FOR CONSULTATION: Lung nodules, suspected metastatic cancer. HISTORY OF PRESENT ILLNESS: The patient is a 64-year-old male who has a long history of tobaccoism since age 21. He presented to the hospital with complaint of shortness of breath and abdominal pain and distention. He has no cough, no chest pain, no headaches, no nausea, vomiting or diarrhea. Denies any weight loss. He underwent imaging study and CT chest was reviewed by me. The patient had CT abdomen and pelvis as well. The patient had multiple pulmonary nodules. They were smaller in size, less than 1 cm. He also had evidence of cirrhosis along with upper abdominal enlarged lymph nodes and also suspicious lesion in the liver. Metastatic cancer has been suspected. GI was consulted. I have been asked to see him for further evaluation. He had paracentesis done today. PAST MEDICAL HISTORY: Significant for hep C, status post treatment; COPD, unknown FEV1, could be moderate; ongoing tobaccoism; history of diabetes and hypertension. ALLERGIES: PENICILLIN. PAST SURGICAL HISTORY: No recent surgery. SOCIAL HISTORY: Retired , former drinker, has not drank for 15 years. Smoking history; since age 17 and 3/4th pack a day and still smokes. FAMILY HISTORY: Significant for hypertension, hyperlipidemia. REVIEW OF SYSTEMS: Twelve-point system obtained. Pertinent positives discussed in my history of present illness, otherwise noncontributory. All systems that were negative were reviewed as well. MEDICATIONS: Reviewed as listed in the MRAD. PHYSICAL EXAMINATION: VITAL SIGNS: Reviewed. Pulse ox 93% on 2 liters, afebrile. HEENT: Sclerae nonicteric. NECK: Supple. LUNGS: With diminished breath sounds. CARDIOVASCULAR: Regular rate. ABDOMEN: Soft, tender to palpation. EXTREMITIES: With no pitting edema. LABORATORY DATA: Reviewed. His urine drug screen positive for meth. Labs are reviewed. BUN 13, creatinine 0.7. AST and ALT elevated and bilirubin mildly elevated at 1.2. White cell count 9.1, hemoglobin 14.5 and platelets are 150. IMPRESSION: 1. Abnormal CT chest, abdomen and pelvis with multiple small lung nodules along with suspected hepatic lesion and abdominal lymphadenopathy. I suspect that we are dealing with metastatic liver cancer. He presented with ascites, which could be metastatic as well. 2. Underlying chronic obstructive pulmonary disease with ongoing tobaccoism. 3. History of cirrhosis. Status post paracentesis. 4. Abnormal liver function tests related to metastatic cancer. RECOMMENDATIONS: 1. Continue with present oxygen at 2 liters. The patient presented with hypoxia. Clinically, compensated, on 2 liters. 2. Follow ascitic fluid cytology. 3. MRI of the liver per GI recommendation along with tumor markers. 4. If above testing nondiagnostic, then he could have liver biopsy versus lymph node biopsy or EGD. 5. We will be following with you along with GI and consider consulting Oncology. Discussed with RN. MARCELINO RODRIGUEZ MD DR: BIN/tara JOB#: [id number] / [id number]
--- NOTE | 2019-08-10 12:26 | RAD ---
Examination: LIMITED ABDOMINAL DOPPLER History: Reason: Assess for portal venous circulation. Please do after paracentesis / Spl. Instructions: / History: Comparison/Correlation: None Findings: Limited right upper quadrant ultrasound exam was performed. Color and spectral Doppler imaging performed. Right, middle, and left hepatic veins have normal hepatofugal flow. Nodular contour of the liver compatible cirrhosis is notable. Hepatopedal flow is present within the main, right, and left portal veins with normal spectral waveforms. Splenic vein is unremarkable. Small ascites is present. Hepatic arterial flow is identified with peak systolic velocity of 97 cm/s and resistive index of 0.6. End diastolic velocity of 35.5 cm/s noted. Impression: Normal portal venous flow is identified. Hepatic cirrhosis. Ascites. Electronically signed by: Augustus Henning MD (08/10/2019 12:23 PM) [id number]
[2019-08-10] MEDS: SPIRONOLACTONE 25 MG TABLET PO SCH (12:46)
[2019-08-10] MEDS: FUROSEMIDE 20 MG TABLET PO SCH (12:46)
[2019-08-10 12:55] LABS: BF CLARITY HAZY; BF COLOR STRAW; BF MON % 33 %; BF PMN % 11 %; BF RBC COUNT 1787 /cmm (Not Established); BF SOURCE ASCITES; BF WBC COUNT 143 /cmm (Not Established)
[2019-08-10 12:56] LABS: BF OTHER % 56 %
--- NOTE | 2019-08-10 13:42 | NUR ---
SS following for discharge planning. SS reviewed pt chart and discussed with pt RN. Pt is from home with spouse and is currently requiring oxygen. SS will continue to follow for discharge planning.
[2019-08-10] MEDS ORDERED: GADOTERATE 7.5 MMOL/15ML VIAL. IVP ONE (15:30)
--- NOTE | 2019-08-10 15:43 | RAD ---
Ultrasound-guided paracentesis 08/10/2019 1:39 PM Procedure: The risks and benefits of the procedure were discussed the patient. Informed consent was obtained. A timeout procedure was performed. Sonographic evaluation of the abdomen was performed demonstrating ascites . The right lower quadrant was prepped and draped using maximum sterile barrier technique. 1% lidocaine without epinephrine was administered for local anesthesia. Real-time ultrasonographic guidance was used in passing a 5 K[place] Yueh catheter into the fluid collection. 5 L of serous ascites was removed. The catheter was removed and pressure held to achieve hemostasis. A sterile dressing was applied. Impression: Successful ultrasound-guided paracentesis
[2019-08-10] MEDS: IV 1/2 NORMAL SALINE 1,000 ML IV SCH (16:27)
--- NOTE | 2019-08-10 17:43 | RAD ---
ABDOMEN WO/W CONTRAST: 08/10/2019 2:12 PM INDICATION: 64 years old Male. Cirrhosis, hepatocellular carcinoma screening COMPARISON: None. TECHNIQUE: Multiplanar multisequence MR imaging of the abdomen was performed both before and after the intravenous administration of gadolinium. FINDINGS: There is bibasilar subsegmental atelectasis. Heart size is within normal limits. Edie conglomerate is identified in the paraesophageal distribution best seen on coronal T2-weighted images. Largest left paraesophageal lymph node measures up to 1.9 cm (series 12, image 5). No significant difference is signal intensity with regards to and out of phase imaging to suggest underlying hepatic steatosis. Spleen is enlarged measuring 15.8 cm in craniocaudal dimension. Pancreas is normal in appearance. No pancreatic ductal dilatation. Gallbladder is contracted. There is nodular contour of the hepatic parenchyma in keeping with provided history of underlying cirrhosis. No intrinsic T1 hyperintense nodules are identified. Geographic areas of T2 signal hyperintensity are identified. Nodular areas of T2 signal hyperintensity are noted in the lateral segment left hepatic lobe measuring up to 16 mm (series 7, image 17). However, no definite suspicious enhancing features are identified in this region. There is more reticulated enhancement pattern throughout the hepatic parenchyma with more significant heterogeneity involving the lateral and medial segments of the left hepatic lobe. In the area corresponding with a hypoattenuating lesion within the right hepatic dome, there is a lesion measuring 2.7 x 2.5 cm with central washout features and peripheral pseudocapsule. This finding is suspicious for hepatocellular carcinoma. Similar pattern is noted throughout the medial and lateral segments of the left hepatic lobe. Small volume abdominal ascites. Abdominal aorta is normal in course and caliber. Enlarged gastrohepatic and peripancreatic lymph nodes are identified measuring 4.0 x 4.6 cm the gastric hepatic space and 4.0 x 4.3 cm in the peripancreatic space. Kidneys are normal in appearance. Visualized portions of bowel appear normal. No suspicious osseous abnormality is identified. IMPRESSION: Cirrhosis with stigmata of portal hypertension including splenomegaly. No definite esophageal or gastric varices are identified. There is abnormal signal involving various segments of the hepatic parenchyma with at least a single lesion in the right hepatic dome, segment VII measuring 2.7 x 2.5 cm with suspicious characteristics for hepatocellular carcinoma (LI-RADS 5). However, there is abnormal pattern of enhancement involving the medial and lateral segments of the left hepatic lobe with heterogeneous T2 signal alteration suspicious for diffuse infiltrative hepatocellular carcinoma. Tissue sampling may be of benefit. Pathologically enlarged gastrohepatic and peripancreatic lymph nodes are present, likely metastatic. Electronically signed by: Xin Hayes MD (08/10/2019 5:40 PM) [facility]
[2019-08-10] MEDS: QUEtiapine 25 MG TABLET. PO SCH (21:23)
[2019-08-10] MEDS: INSULIN GLARGINE SYRINGE. SQ SCH (21:27)
[2019-08-11 02:47] VITALS: BP 109/84
[2019-08-11] MEDS: MORPHINE SULFATE 2 MG/ML VIAL. IV PRN ×7 (03:12→22:29)
[2019-08-11] MEDS: IV 1/2 NORMAL SALINE 1,000 ML IV SCH ×2 (03:52→17:16)
[2019-08-11 04:53] LABS: BASO # 0.1 x10^3/uL (0.0-0.2); BASO % 1 % (0-3); EOS # 0.2 x10^3/uL (0.0-0.7); EOS % 2 % (0-3); HEMATOCRIT 39.2 % (39.0-53.0); HEMOGLOBIN 13.1 g/dL (13.0-17.5); LYMPH # 1.8 x10^3/uL (1.0-4.8); LYMPH % 21 % (24-48); MEAN CORPUSCULAR HEMOGLOBIN 31 pg (25-35); MEAN CORPUSCULAR HGB CONC 34 g/dL (31-37); MEAN CORPUSCULAR VOLUME 91 fL (79-100); MONO % 11 % (0-9); NEUT # 5.6 x10^3/uL (1.8-7.7); NEUT % 65 % (31-73); PLATELET COUNT 145 x10^3/uL (140-400); RED CELL DISTRIBUTION WIDTH 14.8 % (11.5-14.5); WHITE BLOOD COUNT 8.7 x10^3/uL (4.0-11.0)
[2019-08-11 05:12] LABS: ALBUMIN 2.7 g/dL (3.4-5.0); ALBUMIN/GLOBULIN RATIO 0.8 (1.0-1.7); CALCIUM 8.5 mg/dL (8.5-10.1); CREATININE 0.8 mg/dL (0.7-1.3); TOTAL BILIRUBIN 1.4 mg/dL (0.2-1.0); TOTAL PROTEIN 6.2 g/dL (6.4-8.2)
[2019-08-11] MEDS: HEPARIN for SUB-Q USE 5,000 UNIT/ML VIAL. SQ SCH ×3 (06:27→21:23)
[2019-08-11 07:00] VITALS: BP 134/71
[2019-08-11] MEDS: INSULIN LISPRO 300 UNITS/3 ML VIAL. SQ SCH ×4 (07:30→21:00)
[2019-08-11] MEDS: SPIRONOLACTONE 25 MG TABLET PO SCH (08:24)
[2019-08-11] MEDS: FUROSEMIDE 20 MG TABLET PO SCH (08:25)
--- NOTE | 2019-08-11 09:17 | PDOC ---
PROGRESS NOTES Chief Complaint Chief Complaint A/P: Spontaneous ascites - almost certainly due to progression of cirrhosis of liver. Especially concerning that he has stopped drinking and is in SVR from his hep C. D/w IR to have diagnostic and therapeutic paracentesis in AM if possible. GI consulted as well. Cirrhosis - with splenomegaly and spontaneous ascites risk factors of hep C and history of EtOH abuse. nodular contour of the liver compatible with cirrhosis.// GI consulted. Transaminitis - likely related to acute decompensated liver failure or acute hepatitis or congestive hepatopathy. 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 Abdominal doppler would be appropriate after paracentesis and at that time can assess for possible portal thrombus as well Multiple pulmonary nodules. Also noted is a mass at the left base of the neck. In addition, multiple enlarged masses along the left side of the ascending thoracic aorta and anterior to a hiatal hernia and upper abdominal enlarged lymph nodes or masses. Pulm consulted, Hypoattenuation involving the liver which raises possibility of mass lesion - [id number] and CEA ordered. GI consulted COPD - prn nebs ordered Diabetes-Type II - basal bolus plus insulin while inpatient Hypertension - will reconcile meds with [facility] H/o Hep C s/p SVR treatment - will check acute hepatitis panel. Will d/w GI if PCR is appropriate FEN - ADA diet, NPO after midnight PPX - heparin TID FULL CODE Dispo - inpatient consult GI MRI of the liver with tumor markers 39 MIN pt exam, chart review, > 50% of time spent with exam, chart review, pt care coordination History of Present Illness History of Present Illness Mr Sims is a 64 yo M [place] who gets most of his care at the [facility] w/ PMHx COPD, Diabetes-Type II, Hypertension, Hep C s/p SVR treatment (initially did not disclose this), smoker who presents with chest tightness and abdominal pain. Abdominal pain rates a 10 out of 10. He states that he has been having regular bowel movements. He states 2 days ago he was a bit constipated but he is no longer constipated. He states he has not had any nausea or vomiting or diarrhea. He states he does not have any chest pain currently. On ROS he also notes new shortness of breath which has been progressive. He also notes abdominal pain on movement. He is asking for food and he is worried about his being upset after he was told he probably has cancer based on his abnormal CT scan. He notes states about 10 days ago he was trying to lift the back of a lawnmower when he felt a pop in his chest and abdomen area. 3 days ago he tried to lift a tractor and felt the same sensation. 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 Also noted is a mass at the left base of the neck. In addition, multiple enlarged masses along the left side of the ascending thoracic aorta and anterior to a hiatal hernia and upper abdominal enlarged lymph nodes or masses. Finally notable is hepatic cirrhosis with splenomegaly and hypoattenuation involving the liver which raises possibility of mass lesion is noted. Moderate to large amount of ascites. Labs significant for WBC 9.2, Hb 13.7, platelets 147, NA 135, K4, BUN 14, CR 0.7, glucose 208, AST 213, ALT 75, alk phos 464, albumin 2.7, lipase 172, INR 1.1, troponin negative. Admitted for further care. Consulted GI, Pulm, IR. 08/09: MRI abdomen: Cirrhosis with stigmata of portal hypertension including splenomegaly. No definite esophageal or gastric varices are identified. There is abnormal signal involving various segments of the hepatic parenchyma with at least a single lesion in the right hepatic dome, segment VII measuring 2.7 x 2.5 cm with suspicious characteristics for hepatocellular carcinoma (LI- RADS 5). However, there is abnormal pattern of enhancement involving the medial and lateral segments of the left hepatic lobe with heterogeneous T2 signal alteration suspicious for diffuse infiltrative hepatocellular carcinoma. Tissue sampling may be of benefit. Pathologically enlarged gastrohepatic and peripancreatic lymph nodes are present, likely metastatic. Overnight notes his abdomen swelled up again. His shortness of breath has improved. LFTs stable. Gram stain of abdominal fluid shows rare GPC's, negative for malignant cells per pathology. Discussed with patient will likely need further testing likely including liver biopsy will discuss with oncology. Vitals Vitals Vital Signs Date Time Temp Pulse Resp B/P (MAP) Pulse Ox O2 Delivery O2 Flow Rate FiO2 08/11/19 08:24 Room Air 08/11/19 05:49 20 93 2.0 08/11/19 02:47 98.6 20 109/84 (92) 98.6 Physical Exam General: Alert, Oriented X3, Cooperative, moderate distress Abdomen: Normal bowel sounds, Soft, No hepatosplenomegaly, No masses, Other (positive fluid wave, large ascites) Extremities: No clubbing, No cyanosis, No edema, Normal pulses, No tenderness/swelling Skin: No rashes, No breakdown, No significant lesion Labs LABS Laboratory Tests Test 08/10/19 10:10 08/10/19 10:25 08/10/19 11:43 08/10/19 16:30 Glucose (Fingerstick) 94 mg/dL (70-99) 86 mg/dL (70-99) 90 mg/dL (70-99) Body Fluid Source Ascites Body Fluid Color Straw Body Fluid Clarity Hazy Body Fluid Nucleated Cells 143 /cmm (Not Established) Body Fluid Mononuclear WBCs (%) 33 % Body Fluid Polymorphonuclear Cells 11 % Body Fluid Total RBCs Counted 1787 /cmm (Not Established) Body Fluid Other Cells (%) 56 % Test 08/10/19 20:57 08/11/19 03:57 08/11/19 06:29 08/11/19 07:54 Glucose (Fingerstick) 92 mg/dL (70-99) 93 mg/dL (70-99) 143 mg/dL (70-99) White Blood Count 8.7 x10^3/uL (4.0-11.0) Red Blood Count 4.30 x10^6/uL (4.30-5.70) Hemoglobin 13.1 g/dL (13.0-17.5) Hematocrit 39.2 % (39.0-53.0) Mean Corpuscular Volume 91 fL (79-100) Mean Corpuscular Hemoglobin 31 pg (25-35) Mean Corpuscular Hemoglobin Concent 34 g/dL (31-37) Red Cell Distribution Width 14.8 % (11.5-14.5) Platelet Count 145 x10^3/uL (140-400) Neutrophils (%) (Auto) 65 % (31-73) Lymphocytes (%) (Auto) 21 % (24-48) Monocytes (%) (Auto) 11 % (0-9) Eosinophils (%) (Auto) 2 % (0-3) Basophils (%) (Auto) 1 % (0-3) Neutrophils # (Auto) 5.6 x10^3/uL (1.8-7.7) Lymphocytes # (Auto) 1.8 x10^3/uL (1.0-4.8) Monocytes # (Auto) 1.0 x10^3/uL (0.0-1.1) Eosinophils # (Auto) 0.2 x10^3/uL (0.0-0.7) Basophils # (Auto) 0.1 x10^3/uL (0.0-0.2) Sodium Level 135 mmol/L (136-145) Potassium Level 4.0 mmol/L (3.5-5.1) Chloride Level 100 mmol/L (98-107) Carbon Dioxide Level 27 mmol/L (21-32) Anion Gap 8 (6-14) Blood Urea Nitrogen 14 mg/dL (8-26) Creatinine 0.8 mg/dL (0.7-1.3) Estimated GFR (Cockcroft-Gault) 98.0 BUN/Creatinine Ratio 18 (6-20) Glucose Level 149 mg/dL (70-99) Calcium Level 8.5 mg/dL (8.5-10.1) Total Bilirubin 1.4 mg/dL (0.2-1.0) Aspartate Amino Transf (AST/SGOT) 234 U/L (15-37) Alanine Aminotransferase (ALT/SGPT) 63 U/L (16-63) Alkaline Phosphatase 432 U/L (46-116) Total Protein 6.2 g/dL (6.4-8.2) Albumin 2.7 g/dL (3.4-5.0) Albumin/Globulin Ratio 0.8 (1.0-1.7) Assessment and Plan Assessmemt and Plan Problems Medical Problems: (1) Ascites Status: Acute Comment Review of Relevant I have reviewed the following items adilson (where applicable) has been applied. Labs Laboratory Tests Test 08/09/19 13:28 08/09/19 16:47 08/09/19 17:20 08/09/19 21:07 White Blood Count 9.2 x10^3/uL (4.0-11.0) Red Blood Count 4.50 x10^6/uL (4.30-5.70) Hemoglobin 13.7 g/dL (13.0-17.5) Hematocrit 41.2 % (39.0-53.0) Mean Corpuscular Volume 92 fL (79-100) Mean Corpuscular Hemoglobin 31 pg (25-35) Mean Corpuscular Hemoglobin Concent 33 g/dL (31-37) Red Cell Distribution Width 14.8 % (11.5-14.5) Platelet Count 147 x10^3/uL (140-400) Neutrophils (%) (Auto) 71 % (31-73) Lymphocytes (%) (Auto) 17 % (24-48) Monocytes (%) (Auto) 10 % (0-9) Eosinophils (%) (Auto) 2 % (0-3) Basophils (%) (Auto) 1 % (0-3) Neutrophils # (Auto) 6.6 x10^3/uL (1.8-7.7) Lymphocytes # (Auto) 1.6 x10^3/uL (1.0-4.8) Monocytes # (Auto) 0.9 x10^3/uL (0.0-1.1) Eosinophils # (Auto) 0.1 x10^3/uL (0.0-0.7) Basophils # (Auto) 0.0 x10^3/uL (0.0-0.2) Prothrombin Time 13.3 SEC (11.7-14.0) Prothromb Time International Ratio 1.1 (0.8-1.1) Sodium Level 135 mmol/L (136-145) Potassium Level 4.0 mmol/L (3.5-5.1) Chloride Level 102 mmol/L (98-107) Carbon Dioxide Level 24 mmol/L (21-32) Anion Gap 9 (6-14) Blood Urea Nitrogen 14 mg/dL (8-26) Creatinine 0.7 mg/dL (0.7-1.3) Estimated GFR (Cockcroft-Gault) 114.3 BUN/Creatinine Ratio 20 (6-20) Glucose Level 208 mg/dL (70-99) Lactic Acid Level 3.1 mmol/L (0.4-2.0) 1.6 mmol/L (0.4-2.0) Calcium Level 8.5 mg/dL (8.5-10.1) Total Bilirubin 0.9 mg/dL (0.2-1.0) Aspartate Amino Transf (AST/SGOT) 213 U/L (15-37) Alanine Aminotransferase (ALT/SGPT) 75 U/L (16-63) Alkaline Phosphatase 464 U/L (46-116) Troponin I Quantitative < 0.017 ng/mL (0.000-0.055) Total Protein 5.9 g/dL (6.4-8.2) Albumin 2.7 g/dL (3.4-5.0) Albumin/Globulin Ratio 0.8 (1.0-1.7) Lipase 172 U/L (73-393) Glucose (Fingerstick) 52 mg/dL (70-99) 117 mg/dL (70-99) Hepatitis A IgM Antibody Nonreactive (Nonreactive) Hepatitis B Surface Antigen Nonreactive (Nonreactive) Hepatitis B Core IgM Antibody Nonreactive (Nonreactive) Hepatitis C IgG Antibody Reactive (Nonreactive) Test 08/09/19 22:18 08/10/19 02:06 08/10/19 08:21 08/10/19 08:30 Urine Collection Type Unknown Urine Color Dk yellow Urine Clarity Clear Urine pH 6.0 (<5.0-8.0) Urine Specific Jackson >=1.030 (1.000-1.030) Urine Protein Negative mg/dL (NEG-TRACE) Urine Glucose (UA) Negative mg/dL (NEG) Urine Ketones (Stick) Negative mg/dL (NEG) Urine Blood Negative (NEG) Urine Nitrite Negative (NEG) Urine Bilirubin Negative (NEG) Urine Urobilinogen Dipstick 1.0 mg/dL (0.2 mg/dL) Urine Leukocyte Esterase Negative (NEG) Urine RBC 0 /HPF (0-2) Urine WBC Rare /HPF (0-4) Urine Squamous Epithelial Cells None /LPF Urine Bacteria 0 /HPF (0-FEW) Urine Mucus Mod /LPF Urine Opiates Screen Neg (NEG) Urine Methadone Screen Neg (NEG) Urine Barbiturates Neg (NEG) Urine Phencyclidine Screen Neg (NEG) Urine Amphetamine/Methamphetamine Pos (NEG) Urine Benzodiazepines Screen Neg (NEG) Urine Cocaine Screen Neg (NEG) Urine Cannabinoids Screen Neg (NEG) Urine Ethyl Alcohol Neg (NEG) White Blood Count 9.1 x10^3/uL (4.0-11.0) Red Blood Count 4.79 x10^6/uL (4.30-5.70) Hemoglobin 14.5 g/dL (13.0-17.5) Hematocrit 43.9 % (39.0-53.0) Mean Corpuscular Volume 92 fL (79-100) Mean Corpuscular Hemoglobin 30 pg (25-35) Mean Corpuscular Hemoglobin Concent 33 g/dL (31-37) Red Cell Distribution Width 15.1 % (11.5-14.5) Platelet Count 158 x10^3/uL (140-400) Neutrophils (%) (Auto) 68 % (31-73) Lymphocytes (%) (Auto) 18 % (24-48) Monocytes (%) (Auto) 10 % (0-9) Eosinophils (%) (Auto) 3 % (0-3) Basophils (%) (Auto) 1 % (0-3) Neutrophils # (Auto) 6.2 x10^3/uL (1.8-7.7) Lymphocytes # (Auto) 1.7 x10^3/uL (1.0-4.8) Monocytes # (Auto) 0.9 x10^3/uL (0.0-1.1) Eosinophils # (Auto) 0.3 x10^3/uL (0.0-0.7) Basophils # (Auto) 0.1 x10^3/uL (0.0-0.2) Sodium Level 139 mmol/L (136-145) Potassium Level 4.0 mmol/L (3.5-5.1) Chloride Level 102 mmol/L (98-107) Carbon Dioxide Level 25 mmol/L (21-32) Anion Gap 12 (6-14) Blood Urea Nitrogen 13 mg/dL (8-26) Creatinine 0.7 mg/dL (0.7-1.3) Estimated GFR (Cockcroft-Gault) 114.3 BUN/Creatinine Ratio 19 (6-20) Glucose Level 85 mg/dL (70-99) Calcium Level 8.4 mg/dL (8.5-10.1) Total Bilirubin 1.2 mg/dL (0.2-1.0) Aspartate Amino Transf (AST/SGOT) 229 U/L (15-37) Alanine Aminotransferase (ALT/SGPT) 77 U/L (16-63) Alkaline Phosphatase 465 U/L (46-116) Total Protein 6.0 g/dL (6.4-8.2) Albumin 2.6 g/dL (3.4-5.0) Albumin/Globulin Ratio 0.8 (1.0-1.7) Glucose (Fingerstick) 66 mg/dL (70-99) Tumor Marker Alpha Fetoprotein Diluted result ng/mL Test 08/10/19 10:10 08/10/19 10:25 08/10/19 11:43 08/10/19 16:30 Glucose (Fingerstick) 94 mg/dL (70-99) 86 mg/dL (70-99) 90 mg/dL (70-99) Body Fluid Source Ascites Body Fluid Color Straw Body Fluid Clarity Hazy Body Fluid Nucleated Cells 143 /cmm (Not Established) Body Fluid Mononuclear WBCs (%) 33 % Body Fluid Polymorphonuclear Cells 11 % Body Fluid Total RBCs Counted 1787 /cmm (Not Established) Body Fluid Other Cells (%) 56 % Test 08/10/19 20:57 08/11/19 03:57 08/11/19 06:29 08/11/19 07:54 Glucose (Fingerstick) 92 mg/dL (70-99) 93 mg/dL (70-99) 143 mg/dL (70-99) White Blood Count 8.7 x10^3/uL (4.0-11.0) Red Blood Count 4.30 x10^6/uL (4.30-5.70) Hemoglobin 13.1 g/dL (13.0-17.5) Hematocrit 39.2 % (39.0-53.0) Mean Corpuscular Volume 91 fL (79-100) Mean Corpuscular Hemoglobin 31 pg (25-35) Mean Corpuscular Hemoglobin Concent 34 g/dL (31-37) Red Cell Distribution Width 14.8 % (11.5-14.5) Platelet Count 145 x10^3/uL (140-400) Neutrophils (%) (Auto) 65 % (31-73) Lymphocytes (%) (Auto) 21 % (24-48) Monocytes (%) (Auto) 11 % (0-9) Eosinophils (%) (Auto) 2 % (0-3) Basophils (%) (Auto) 1 % (0-3) Neutrophils # (Auto) 5.6 x10^3/uL (1.8-7.7) Lymphocytes # (Auto) 1.8 x10^3/uL (1.0-4.8) Monocytes # (Auto) 1.0 x10^3/uL (0.0-1.1) Eosinophils # (Auto) 0.2 x10^3/uL (0.0-0.7) Basophils # (Auto) 0.1 x10^3/uL (0.0-0.2) Sodium Level 135 mmol/L (136-145) Potassium Level 4.0 mmol/L (3.5-5.1) Chloride Level 100 mmol/L (98-107) Carbon Dioxide Level 27 mmol/L (21-32) Anion Gap 8 (6-14) Blood Urea Nitrogen 14 mg/dL (8-26) Creatinine 0.8 mg/dL (0.7-1.3) Estimated GFR (Cockcroft-Gault) 98.0 BUN/Creatinine Ratio 18 (6-20) Glucose Level 149 mg/dL (70-99) Calcium Level 8.5 mg/dL (8.5-10.1) Total Bilirubin 1.4 mg/dL (0.2-1.0) Aspartate Amino Transf (AST/SGOT) 234 U/L (15-37) Alanine Aminotransferase (ALT/SGPT) 63 U/L (16-63) Alkaline Phosphatase 432 U/L (46-116) Total Protein 6.2 g/dL (6.4-8.2) Albumin 2.7 g/dL (3.4-5.0) Albumin/Globulin Ratio 0.8 (1.0-1.7) Laboratory Tests Test 08/10/19 10:10 08/10/19 10:25 08/10/19 11:43 08/10/19 16:30 Glucose (Fingerstick) 94 mg/dL (70-99) 86 mg/dL (70-99) 90 mg/dL (70-99) Body Fluid Source Ascites Body Fluid Color Straw Body Fluid Clarity Hazy Body Fluid Nucleated Cells 143 /cmm (Not Established) Body Fluid Mononuclear WBCs (%) 33 % Body Fluid Polymorphonuclear Cells 11 % Body Fluid Total RBCs Counted 1787 /cmm (Not Established) Body Fluid Other Cells (%) 56 % Test 08/10/19 20:57 08/11/19 03:57 08/11/19 06:29 08/11/19 07:54 Glucose (Fingerstick) 92 mg/dL (70-99) 93 mg/dL (70-99) 143 mg/dL (70-99) White Blood Count 8.7 x10^3/uL (4.0-11.0) Red Blood Count 4.30 x10^6/uL (4.30-5.70) Hemoglobin 13.1 g/dL (13.0-17.5) Hematocrit 39.2 % (39.0-53.0) Mean Corpuscular Volume 91 fL (79-100) Mean Corpuscular Hemoglobin 31 pg (25-35) Mean Corpuscular Hemoglobin Concent 34 g/dL (31-37) Red Cell Distribution Width 14.8 % (11.5-14.5) Platelet Count 145 x10^3/uL (140-400) Neutrophils (%) (Auto) 65 % (31-73) Lymphocytes (%) (Auto) 21 % (24-48) Monocytes (%) (Auto) 11 % (0-9) Eosinophils (%) (Auto) 2 % (0-3) Basophils (%) (Auto) 1 % (0-3) Neutrophils # (Auto) 5.6 x10^3/uL (1.8-7.7) Lymphocytes # (Auto) 1.8 x10^3/uL (1.0-4.8) Monocytes # (Auto) 1.0 x10^3/uL (0.0-1.1) Eosinophils # (Auto) 0.2 x10^3/uL (0.0-0.7) Basophils # (Auto) 0.1 x10^3/uL (0.0-0.2) Sodium Level 135 mmol/L (136-145) Potassium Level 4.0 mmol/L (3.5-5.1) Chloride Level 100 mmol/L (98-107) Carbon Dioxide Level 27 mmol/L (21-32) Anion Gap 8 (6-14) Blood Urea Nitrogen 14 mg/dL (8-26) Creatinine 0.8 mg/dL (0.7-1.3) Estimated GFR (Cockcroft-Gault) 98.0 BUN/Creatinine Ratio 18 (6-20) Glucose Level 149 mg/dL (70-99) Calcium Level 8.5 mg/dL (8.5-10.1) Total Bilirubin 1.4 mg/dL (0.2-1.0) Aspartate Amino Transf (AST/SGOT) 234 U/L (15-37) Alanine Aminotransferase (ALT/SGPT) 63 U/L (16-63) Alkaline Phosphatase 432 U/L (46-116) Total Protein 6.2 g/dL (6.4-8.2) Albumin 2.7 g/dL (3.4-5.0) Albumin/Globulin Ratio 0.8 (1.0-1.7) Medications Current Medications Fentanyl Citrate (Fentanyl 2ml Vial) 50 mcg 1X ONCE IVP Last administered on 08/09/19at 13:36; Start 08/09/19 at 13:30; Stop 08/09/19 at 13:31; Status DC Sodium Chloride 1,000 ml @ 1,000 mls/hr 1X ONCE IV Last administered on at 13:36; Start 08/09/19 at 13:30; Stop 08/09/19 at 14:29; Status DC Iohexol (Omnipaque 350 Mg/ml) 100 ml 1X ONCE IV Last administered on 08/09/19at 14:23; Start 08/09/19 at 14:15; Stop 08/09/19 at 14:16; Status DC Info (CONTRAST GIVEN -- Rx MONITORING) 1 each PRN DAILY PRN MC SEE COMMENTS; Start 08/09/19 at 14:15; Stop 08/11/19 at 14:14 Sodium Chloride 1,000 ml @ 1,000 mls/hr 1X ONCE IV Last administered on 08/09/19at 14:35; Start 08/09/19 at 14:30; Stop 08/09/19 at 15:29; Status DC Ondansetron HCl (Zofran) 4 mg PRN Q8HRS PRN IV NAUSEA/VOMITING; Start 08/09/19 at 15:45; Stop 08/09/19 at 16:40; Status DC Fentanyl Citrate (Fentanyl 2ml Vial) 50 mcg PRN Q1HR PRN IV PAIN Last administered on 08/10/19at 02:42; Start 08/09/19 at 15:45; Stop 08/10/19 at 03:46; Status DC Ondansetron HCl (Zofran) 4 mg PRN Q4HRS PRN IV NAUSEA/VOMITING; Start 08/09/19 at 16:30 Insulin Glargine (Lantus Syringe) 5 unit QHS SQ Last administered on 08/10/19at 21:27; Start 08/09/19 at 21:00 Insulin Human Lispro (HumaLOG) 0-7 UNITS TIDACHC SQ ; Start 08/09/19 at 21:00 Dextrose (Dextrose 50%-Water Syringe) 12.5 gm PRN Q15MIN PRN IV SEE COMMENTS Last administered on 08/10/19at 08:45; Start 08/09/19 at 17:15 Albuterol Sulfate (Ventolin Neb Soln) 2.5 mg PRN Q4HRS PRN NEB SHORTNESS OF BREATH; Start 08/09/19 at 17:15 Furosemide (Lasix) 20 mg 1X ONCE IVP Last administered on 08/09/19at 21:07; Start 08/09/19 at 17:45; Stop 08/09/19 at 17:46; Status DC Furosemide (Lasix) 20 mg DAILY PO Last administered on 08/11/19at 08:25; Start 08/10/19 at 09:00 Spironolactone (Aldactone) 50 mg DAILY PO Last administered on 08/11/19at 08:24; Start 08/10/19 at 09:00 Heparin Sodium (Porcine) (Heparin Sodium) 5,000 unit Q8HRS SQ Last administered on 08/11/19at 06:27; Start 08/09/19 at 22:00 Morphine Sulfate (Morphine Sulfate) 2 mg PRN Q2HR PRN IV SEVERE PAIN 7-10 Last administered on 08/11/19at 07:21; Start 08/10/19 at 03:45 Quetiapine Fumarate (SEROquel) 25 mg HS PO Last administered on 08/10/19at 21:23; Start 08/10/19 at 21:00 Lidocaine HCl (Buffered Lidocaine 1%) 3 ml STK-MED ONCE .ROUTE ; Start 08/10/19 at 10:13; Stop 08/10/19 at 10:14; Status DC Lidocaine HCl (Buffered Lidocaine 1%) 6 ml 1X ONCE INJ Last administered on 08/10/19at 10:21; Start 08/10/19 at 10:30; Stop 08/10/19 at 10:31; Status DC Albumin Human 100 ml @ 100 mls/hr 1X ONCE IV Last administered on 08/10/19at 10:48; Start 08/10/19 at 11:00; Stop 08/10/19 at 11:59; Status DC Sodium Chloride 1,000 ml @ 75 mls/hr [id number] IV Last administered on 08/11/19at 03:52; Start 08/10/19 at 14:15 Gadoterate Meglumine (Dotarem) 18.2 ml 1X ONCE IVP Last administered on 08/10/19at 15:30; Start 08/10/19 at 15:30; Stop 08/10/19 at 15:31; Status DC Vitals/I & O Vital Sign - Last 24 Hours 08/10/19 08/10/19 08/10/19 08/10/19 10:25 10:39 11:00 12:00 Temp 98.1 98.1 Pulse 89 92 96 87 B/P (MAP) 149/76 (100) 147/75 (99) 142/78 (99) 143/68 (93) Pulse Ox 92 97 93 93 O2 Delivery Nasal Cannula Nasal Cannula Nasal Cannula Nasal Cannula O2 Flow Rate 2.0 2.0 2.0 2.0 08/10/19 08/10/19 08/10/19 08/10/19 15:00 16:26 16:56 19:33 Temp 98.1 99.1 98.1 99.1 Pulse 89 84 Resp 20 20 B/P (MAP) 146/76 (99) 120/73 (89) Pulse Ox 92 90 O2 Delivery Nasal Cannula Nasal Cannula Room Air Nasal Cannula O2 Flow Rate 2.0 2.0 2.0 08/10/19 08/10/19 08/10/19 08/10/19 20:00 20:24 20:54 22:35 Temp 99.0 99.0 Pulse 81 Resp 20 18 20 B/P (MAP) 141/71 (94) Pulse Ox 90 90 90 O2 Delivery Nasal Cannula Room Air Nasal Cannula Nasal Cannula O2 Flow Rate 2.0 2.0 2.0 08/11/19 08/11/19 08/11/19 08/11/19 02:47 03:12 03:42 05:19 Temp 98.6 98.6 Pulse 20 Resp 20 20 20 20 B/P (MAP) 109/84 (92) Pulse Ox 91 91 93 93 O2 Delivery Nasal Cannula Nasal Cannula Nasal Cannula Nasal Cannula O2 Flow Rate 2.0 2.0 2.0 2.0 08/11/19 08/11/19 08/11/19 08/11/19 05:49 07:15 07:21 08:24 Resp 20 Pulse Ox 93 O2 Delivery Nasal Cannula Room Air Room Air Room Air O2 Flow Rate 2.0 Intake and Output 08/10/19 08/10/19 08/11/19 15:00 23:00 07:00 Intake Total 0 ml 120 ml Balance 0 ml 120 ml ALISHA TREJO MD August 11, 2019 09:17
--- NOTE | 2019-08-11 09:55 | PDOC ---
PULMONARY PROGRESS NOTES Subjective no soa Vitals Vital Signs Date Time Temp Pulse Resp B/P (MAP) Pulse Ox O2 Delivery O2 Flow Rate FiO2 08/11/19 08:24 Room Air 08/11/19 07:00 98.2 87 16 134/71 (92) 91 2.0 98.2 ROS: No Chest Pain, No Abdominal Pain General: Alert, No acute distress Lungs: Other (decrease bs) Cardiovascular: S1 Abdomen: Soft, Other (tender) Neuro Exam: Alert Extremities: No Edema Skin: Warm Labs Laboratory Tests Test 08/09/19 13:28 08/09/19 16:47 08/09/19 17:20 08/09/19 21:07 White Blood Count 9.2 x10^3/uL (4.0-11.0) Red Blood Count 4.50 x10^6/uL (4.30-5.70) Hemoglobin 13.7 g/dL (13.0-17.5) Hematocrit 41.2 % (39.0-53.0) Mean Corpuscular Volume 92 fL (79-100) Mean Corpuscular Hemoglobin 31 pg (25-35) Mean Corpuscular Hemoglobin Concent 33 g/dL (31-37) Red Cell Distribution Width 14.8 % (11.5-14.5) Platelet Count 147 x10^3/uL (140-400) Neutrophils (%) (Auto) 71 % (31-73) Lymphocytes (%) (Auto) 17 % (24-48) Monocytes (%) (Auto) 10 % (0-9) Eosinophils (%) (Auto) 2 % (0-3) Basophils (%) (Auto) 1 % (0-3) Neutrophils # (Auto) 6.6 x10^3/uL (1.8-7.7) Lymphocytes # (Auto) 1.6 x10^3/uL (1.0-4.8) Monocytes # (Auto) 0.9 x10^3/uL (0.0-1.1) Eosinophils # (Auto) 0.1 x10^3/uL (0.0-0.7) Basophils # (Auto) 0.0 x10^3/uL (0.0-0.2) Prothrombin Time 13.3 SEC (11.7-14.0) Prothromb Time International Ratio 1.1 (0.8-1.1) Sodium Level 135 mmol/L (136-145) Potassium Level 4.0 mmol/L (3.5-5.1) Chloride Level 102 mmol/L (98-107) Carbon Dioxide Level 24 mmol/L (21-32) Anion Gap 9 (6-14) Blood Urea Nitrogen 14 mg/dL (8-26) Creatinine 0.7 mg/dL (0.7-1.3) Estimated GFR (Cockcroft-Gault) 114.3 BUN/Creatinine Ratio 20 (6-20) Glucose Level 208 mg/dL (70-99) Lactic Acid Level 3.1 mmol/L (0.4-2.0) 1.6 mmol/L (0.4-2.0) Calcium Level 8.5 mg/dL (8.5-10.1) Total Bilirubin 0.9 mg/dL (0.2-1.0) Aspartate Amino Transf (AST/SGOT) 213 U/L (15-37) Alanine Aminotransferase (ALT/SGPT) 75 U/L (16-63) Alkaline Phosphatase 464 U/L (46-116) Troponin I Quantitative < 0.017 ng/mL (0.000-0.055) Total Protein 5.9 g/dL (6.4-8.2) Albumin 2.7 g/dL (3.4-5.0) Albumin/Globulin Ratio 0.8 (1.0-1.7) Lipase 172 U/L (73-393) Glucose (Fingerstick) 52 mg/dL (70-99) 117 mg/dL (70-99) Hepatitis A IgM Antibody Nonreactive (Nonreactive) Hepatitis B Surface Antigen Nonreactive (Nonreactive) Hepatitis B Core IgM Antibody Nonreactive (Nonreactive) Hepatitis C IgG Antibody Reactive (Nonreactive) Test 08/09/19 22:18 08/10/19 02:06 08/10/19 08:21 08/10/19 08:30 Urine Collection Type Unknown Urine Color Dk yellow Urine Clarity Clear Urine pH 6.0 (<5.0-8.0) Urine Specific [place] >=1.030 (1.000-1.030) Urine Protein Negative mg/dL (NEG-TRACE) Urine Glucose (UA) Negative mg/dL (NEG) Urine Ketones (Stick) Negative mg/dL (NEG) Urine Blood Negative (NEG) Urine Nitrite Negative (NEG) Urine Bilirubin Negative (NEG) Urine Urobilinogen Dipstick 1.0 mg/dL (0.2 mg/dL) Urine Leukocyte Esterase Negative (NEG) Urine RBC 0 /HPF (0-2) Urine WBC Rare /HPF (0-4) Urine Squamous Epithelial Cells None /LPF Urine Bacteria 0 /HPF (0-FEW) Urine Mucus Mod /LPF Urine Opiates Screen Neg (NEG) Urine Methadone Screen Neg (NEG) Urine Barbiturates Neg (NEG) Urine Phencyclidine Screen Neg (NEG) Urine Amphetamine/Methamphetamine Pos (NEG) Urine Benzodiazepines Screen Neg (NEG) Urine Cocaine Screen Neg (NEG) Urine Cannabinoids Screen Neg (NEG) Urine Ethyl Alcohol Neg (NEG) White Blood Count 9.1 x10^3/uL (4.0-11.0) Red Blood Count 4.79 x10^6/uL (4.30-5.70) Hemoglobin 14.5 g/dL (13.0-17.5) Hematocrit 43.9 % (39.0-53.0) Mean Corpuscular Volume 92 fL (79-100) Mean Corpuscular Hemoglobin 30 pg (25-35) Mean Corpuscular Hemoglobin Concent 33 g/dL (31-37) Red Cell Distribution Width 15.1 % (11.5-14.5) Platelet Count 158 x10^3/uL (140-400) Neutrophils (%) (Auto) 68 % (31-73) Lymphocytes (%) (Auto) 18 % (24-48) Monocytes (%) (Auto) 10 % (0-9) Eosinophils (%) (Auto) 3 % (0-3) Basophils (%) (Auto) 1 % (0-3) Neutrophils # (Auto) 6.2 x10^3/uL (1.8-7.7) Lymphocytes # (Auto) 1.7 x10^3/uL (1.0-4.8) Monocytes # (Auto) 0.9 x10^3/uL (0.0-1.1) Eosinophils # (Auto) 0.3 x10^3/uL (0.0-0.7) Basophils # (Auto) 0.1 x10^3/uL (0.0-0.2) Sodium Level 139 mmol/L (136-145) Potassium Level 4.0 mmol/L (3.5-5.1) Chloride Level 102 mmol/L (98-107) Carbon Dioxide Level 25 mmol/L (21-32) Anion Gap 12 (6-14) Blood Urea Nitrogen 13 mg/dL (8-26) Creatinine 0.7 mg/dL (0.7-1.3) Estimated GFR (Cockcroft-Gault) 114.3 BUN/Creatinine Ratio 19 (6-20) Glucose Level 85 mg/dL (70-99) Calcium Level 8.4 mg/dL (8.5-10.1) Total Bilirubin 1.2 mg/dL (0.2-1.0) Aspartate Amino Transf (AST/SGOT) 229 U/L (15-37) Alanine Aminotransferase (ALT/SGPT) 77 U/L (16-63) Alkaline Phosphatase 465 U/L (46-116) Total Protein 6.0 g/dL (6.4-8.2) Albumin 2.6 g/dL (3.4-5.0) Albumin/Globulin Ratio 0.8 (1.0-1.7) Glucose (Fingerstick) 66 mg/dL (70-99) Tumor Marker Alpha Fetoprotein Diluted result ng/mL Test 08/10/19 10:10 08/10/19 10:25 08/10/19 11:43 08/10/19 16:30 Glucose (Fingerstick) 94 mg/dL (70-99) 86 mg/dL (70-99) 90 mg/dL (70-99) Body Fluid Source Ascites Body Fluid Color Straw Body Fluid Clarity Hazy Body Fluid Nucleated Cells 143 /cmm (Not Established) Body Fluid Mononuclear WBCs (%) 33 % Body Fluid Polymorphonuclear Cells 11 % Body Fluid Total RBCs Counted 1787 /cmm (Not Established) Body Fluid Other Cells (%) 56 % Test 08/10/19 20:57 08/11/19 03:57 08/11/19 06:29 08/11/19 07:54 Glucose (Fingerstick) 92 mg/dL (70-99) 93 mg/dL (70-99) 143 mg/dL (70-99) White Blood Count 8.7 x10^3/uL (4.0-11.0) Red Blood Count 4.30 x10^6/uL (4.30-5.70) Hemoglobin 13.1 g/dL (13.0-17.5) Hematocrit 39.2 % (39.0-53.0) Mean Corpuscular Volume 91 fL (79-100) Mean Corpuscular Hemoglobin 31 pg (25-35) Mean Corpuscular Hemoglobin Concent 34 g/dL (31-37) Red Cell Distribution Width 14.8 % (11.5-14.5) Platelet Count 145 x10^3/uL (140-400) Neutrophils (%) (Auto) 65 % (31-73) Lymphocytes (%) (Auto) 21 % (24-48) Monocytes (%) (Auto) 11 % (0-9) Eosinophils (%) (Auto) 2 % (0-3) Basophils (%) (Auto) 1 % (0-3) Neutrophils # (Auto) 5.6 x10^3/uL (1.8-7.7) Lymphocytes # (Auto) 1.8 x10^3/uL (1.0-4.8) Monocytes # (Auto) 1.0 x10^3/uL (0.0-1.1) Eosinophils # (Auto) 0.2 x10^3/uL (0.0-0.7) Basophils # (Auto) 0.1 x10^3/uL (0.0-0.2) Sodium Level 135 mmol/L (136-145) Potassium Level 4.0 mmol/L (3.5-5.1) Chloride Level 100 mmol/L (98-107) Carbon Dioxide Level 27 mmol/L (21-32) Anion Gap 8 (6-14) Blood Urea Nitrogen 14 mg/dL (8-26) Creatinine 0.8 mg/dL (0.7-1.3) Estimated GFR (Cockcroft-Gault) 98.0 BUN/Creatinine Ratio 18 (6-20) Glucose Level 149 mg/dL (70-99) Calcium Level 8.5 mg/dL (8.5-10.1) Total Bilirubin 1.4 mg/dL (0.2-1.0) Aspartate Amino Transf (AST/SGOT) 234 U/L (15-37) Alanine Aminotransferase (ALT/SGPT) 63 U/L (16-63) Alkaline Phosphatase 432 U/L (46-116) Total Protein 6.2 g/dL (6.4-8.2) Albumin 2.7 g/dL (3.4-5.0) Albumin/Globulin Ratio 0.8 (1.0-1.7) Laboratory Tests Test 08/10/19 10:10 08/10/19 10:25 08/10/19 11:43 08/10/19 16:30 Glucose (Fingerstick) 94 mg/dL (70-99) 86 mg/dL (70-99) 90 mg/dL (70-99) Body Fluid Source Ascites Body Fluid Color Straw Body Fluid Clarity Hazy Body Fluid Nucleated Cells 143 /cmm (Not Established) Body Fluid Mononuclear WBCs (%) 33 % Body Fluid Polymorphonuclear Cells 11 % Body Fluid Total RBCs Counted 1787 /cmm (Not Established) Body Fluid Other Cells (%) 56 % Test 08/10/19 20:57 08/11/19 03:57 08/11/19 06:29 08/11/19 07:54 Glucose (Fingerstick) 92 mg/dL (70-99) 93 mg/dL (70-99) 143 mg/dL (70-99) White Blood Count 8.7 x10^3/uL (4.0-11.0) Red Blood Count 4.30 x10^6/uL (4.30-5.70) Hemoglobin 13.1 g/dL (13.0-17.5) Hematocrit 39.2 % (39.0-53.0) Mean Corpuscular Volume 91 fL (79-100) Mean Corpuscular Hemoglobin 31 pg (25-35) Mean Corpuscular Hemoglobin Concent 34 g/dL (31-37) Red Cell Distribution Width 14.8 % (11.5-14.5) Platelet Count 145 x10^3/uL (140-400) Neutrophils (%) (Auto) 65 % (31-73) Lymphocytes (%) (Auto) 21 % (24-48) Monocytes (%) (Auto) 11 % (0-9) Eosinophils (%) (Auto) 2 % (0-3) Basophils (%) (Auto) 1 % (0-3) Neutrophils # (Auto) 5.6 x10^3/uL (1.8-7.7) Lymphocytes # (Auto) 1.8 x10^3/uL (1.0-4.8) Monocytes # (Auto) 1.0 x10^3/uL (0.0-1.1) Eosinophils # (Auto) 0.2 x10^3/uL (0.0-0.7) Basophils # (Auto) 0.1 x10^3/uL (0.0-0.2) Sodium Level 135 mmol/L (136-145) Potassium Level 4.0 mmol/L (3.5-5.1) Chloride Level 100 mmol/L (98-107) Carbon Dioxide Level 27 mmol/L (21-32) Anion Gap 8 (6-14) Blood Urea Nitrogen 14 mg/dL (8-26) Creatinine 0.8 mg/dL (0.7-1.3) Estimated GFR (Cockcroft-Gault) 98.0 BUN/Creatinine Ratio 18 (6-20) Glucose Level 149 mg/dL (70-99) Calcium Level 8.5 mg/dL (8.5-10.1) Total Bilirubin 1.4 mg/dL (0.2-1.0) Aspartate Amino Transf (AST/SGOT) 234 U/L (15-37) Alanine Aminotransferase (ALT/SGPT) 63 U/L (16-63) Alkaline Phosphatase 432 U/L (46-116) Total Protein 6.2 g/dL (6.4-8.2) Albumin 2.7 g/dL (3.4-5.0) Albumin/Globulin Ratio 0.8 (1.0-1.7) Impression . 1. Abnormal CT chest, abdomen and pelvis with multiple small lung nodules along with suspected hepatic lesion and abdominal lymphadenopathy. I suspect that we are dealing with metastatic liver cancer. He presented with ascites, which could be metastatic as well. 2. Underlying chronic obstructive pulmonary disease with ongoing tobaccoism. 3. History of cirrhosis. Status post paracentesis. 4. Abnormal liver function tests related to metastatic cancer. Plan . 1. Continue with present oxygen at 2 liters. The patient presented with hypoxia. Clinically, compensated, on 2 liters. 2. Follow ascitic fluid cytology. 3. MRI of the liver suspicious for hepatocellular carcinoma. May need bx . follow tumor markers. 4. GI rec 5. We will be following with you . Discussed with MARIPOSA. MARCELINO RODRIGUEZ MD August 11, 2019 09:54
--- NOTE | 2019-08-11 10:33 | PDOC ---
Subjective: Subjective: Abdomen filled up again, not very comfortable. Objective: Objective: On furosemide and Aldactone. Vital Signs: Vital Signs Date Time Temp Pulse Resp B/P (MAP) Pulse Ox O2 Delivery O2 Flow Rate FiO2 08/11/19 08:24 Room Air 08/11/19 07:00 98.2 87 16 134/71 (92) 91 2.0 98.2 Labs: Laboratory Tests Test 08/10/19 10:25 08/10/19 11:43 08/10/19 16:30 08/10/19 20:57 Body Fluid Source Ascites Body Fluid Color Straw Body Fluid Clarity Hazy Body Fluid Nucleated Cells 143 /cmm Body Fluid Mononuclear WBCs (%) 33 % Body Fluid Polymorphonuclear Cells 11 % Body Fluid Total RBCs Counted 1787 /cmm Body Fluid Other Cells (%) 56 % Glucose (Fingerstick) 86 mg/dL 90 mg/dL 92 mg/dL Test 08/11/19 03:57 08/11/19 06:29 08/11/19 07:54 White Blood Count 8.7 x10^3/uL Red Blood Count 4.30 x10^6/uL Hemoglobin 13.1 g/dL Hematocrit 39.2 % Mean Corpuscular Volume 91 fL Mean Corpuscular Hemoglobin 31 pg Mean Corpuscular Hemoglobin Concent 34 g/dL Red Cell Distribution Width 14.8 % Platelet Count 145 x10^3/uL Neutrophils (%) (Auto) 65 % Lymphocytes (%) (Auto) 21 % Monocytes (%) (Auto) 11 % Eosinophils (%) (Auto) 2 % Basophils (%) (Auto) 1 % Neutrophils # (Auto) 5.6 x10^3/uL Lymphocytes # (Auto) 1.8 x10^3/uL Monocytes # (Auto) 1.0 x10^3/uL Eosinophils # (Auto) 0.2 x10^3/uL Basophils # (Auto) 0.1 x10^3/uL Sodium Level 135 mmol/L Potassium Level 4.0 mmol/L Chloride Level 100 mmol/L Carbon Dioxide Level 27 mmol/L Anion Gap 8 Blood Urea Nitrogen 14 mg/dL Creatinine 0.8 mg/dL Estimated GFR (Cockcroft-Gault) 98.0 BUN/Creatinine Ratio 18 Glucose Level 149 mg/dL Calcium Level 8.5 mg/dL Total Bilirubin 1.4 mg/dL Aspartate Amino Transf (AST/SGOT) 234 U/L Alanine Aminotransferase (ALT/SGPT) 63 U/L Alkaline Phosphatase 432 U/L Total Protein 6.2 g/dL Albumin 2.7 g/dL Albumin/Globulin Ratio 0.8 Glucose (Fingerstick) 93 mg/dL 143 mg/dL COVID-19, CEA, CA19-9 pending AFP result: Result Comment: Results confirmed on dilution. [id number] [employer] Electrochemiluminescence Immunoassay (ECLIA) Values obtained with different assay methods or kits cannot be used interchangeably. Results cannot be interpreted as absolute evidence of the presence or absence of malignant disease. Imaging: Abd MRI 08/09 Cirrhosis with stigmata of portal hypertension including splenomegaly. No definite esophageal or gastric varices are identified. There is abnormal signal involving various segments of the hepatic parenchyma with at least a single lesion in the right hepatic dome, segment VII measuring 2.7 x 2.5 cm with suspicious characteristics for hepatocellular carcinoma (LI-RADS 5). However, there is abnormal pattern of enhancement involving the medial and lateral segments of the left hepatic lobe with heterogeneous T2 signal alteration suspicious for diffuse infiltrative hepatocellular carcinoma. Tissue sampling may be of benefit.Pathologically enlarged gastrohepatic and peripancreatic lymph nodes are present, likely metastatic. Doppler US 08/09 Impression: Normal portal venous flow is identified. Hepatic cirrhosis. Ascites. C/A/P CTA 08/08 Impression: No aortic dissection or aneurysm. Atherosclerotic calcific involvement is present. High-grade stenosis of the celiac artery is present. Significant sten osis of the inferior mesenteric artery. No pulmonary arterial thromboembolic disease. Multiple pulmonary nodules. Mass at the left base of the neck. Multiple enlarged masses along the left side of the ascending thoracic aorta and anterior to a hiatal hernia. Upper abdominal enlarged lymph nodes or masses. Metastatic etiology is of concern. Hepatic cirrhosis with splenomegaly. Hypo attenuation involving the liver which raises possibility of mass lesion is noted. Further evaluation MRI of the liver without and with contrast should be considered for more definitive assessment. Moderate to large amount of ascites. Marked coronary arterial calcification. Correlate clinically for underlying coronary disease. CXR 08/08 Impression: 1. Low lung volumes with patchy left basilar opacities, most likely atelectasis. Paracentesis 08/08 5 L of serous ascites was removed PE: GEN: NAD, up to chair, appears chronically ill LUNGS: diminished anteriorly HEART: RRR ABD: distended/tight EXTREMITY: No edema NEURO/PSYCH: A & O 3 A/P: Cirrhosis - Hep C (?treated) Ascites s/p paracentesis 5L 08/09/19 - now recurrent Abnormal imaging w/ concern for HCC/metastatic disease w/ pulm nodules, mass at base of neck, lymphadenopathy Abnormal LFTs, hypoalbuminemia -- Uncomfortable w/ ascites again, consider repeating paracentesis. Imaging and AFP results noted, will review w/ Dr. Reese. Hemodynamically unstable?: No Is patient in severe pain?: No Is NPO status required?: No HENRRY JARRELL August 11, 2019 10:33
[2019-08-11 11:00] VITALS: BP 149/79
--- NOTE | 2019-08-11 13:07 | PATHOLOGY ---
Note [facility] Accession Number: [id number] TESTS RESULT FLAG UNITS REF RANGE LAB Clinician Provided Cytology Information No. of containers..01 Other (Miscellaneous) Source: ASCTIES DIAGNOSIS: 02 ASCTIES NEGATIVE FOR MALIGNANT CELLS. FOCALLY REACTIVE MESOTHELIAL CELLS IDENTIFIED WITHIN A BACKGROUND OF CHRONIC INFLAMMATORY CELLS AND NEUTROPHILS. THIS EVALUATION INCLUDES EXAMINATION OF A CELL BLOCK. Signed out by: 02 Manny Tidwell MD, Pathologist NPI- [id number] Performed by: Mimi Snow, Manager Planning ([facility]) Gross description: 01 30ML, CLOUDY YELLOW, 1 TP 1 CB /LCS 08/10/2019 1554 Local FLAG LEGEND: L-Low Normal,H-High Normal,LL-Alert Low,HH-Alert High <-Panic Low,>-Panic High,A-Abnormal,AA-Critical Abnormal Performed at: 01 [facility] [address] [place] [address] Marcelino Becerra MD, 02 [facility] [address] [place] [address] Manny Tidwell MD, Specimen Comment: A courtesy copy of this report has been sent to [phone], [phone] Specimen Comment: [id number], Specimen Comment: Report sent to ,DR HERNANDEZ / DR TREJO Specimen Comment: A duplicate report has been generated due to demographic updates. Performed at: [address], [place], [place] [id number] MD Marcelino Becerra MD Phone: [phone]
--- NOTE | 2019-08-11 14:52 | NUR ---
SS following up with discharge planning. SS reviewed pt chart and discussed with pt RN. Pt is from home with spouse and is currently on room air. SS will continue to follow for discharge planning.
[2019-08-11 15:00] VITALS: BP 137/80
[2019-08-11 15:12] LABS: CEA 3.5 ng/mL (0.0-4.7)
--- NOTE | 2019-08-11 17:44 | PDOC2 ---
CONSULT Date of Consult Date of Consult DATE: 08/11/19 TIME: 16:48 Reason for Consult Reason for Consult: Evaluation of metastatic cancer of unknown primary. Referring Physician Referring Physician: Dr. Alen Reese History of Present Illness Reason for Visit: Mr. Nayan Sims is a 64 year-old male who [facility]. He reported ~ 10 days prior he was trying to lift the back of a lawnmower when he felt a pop in his chest and abdomen area. Upon pr esentation to ED, he was complaining of abdominal pain, rating 10/10. He denied nausea, vomiting, or diarrhea. He denied chest pain, but reported shortness of breath. He reported 3-week history of abdominal distention and discomfort. CT angio chest, abdomen, pelvis was performed. It showed at the left base of the neck, there is a heterogeneous intermediate density structure present, present just lateral to the left thyroid lobe and abuts the posterior margin of the left common carotid artery measuring 3.3 cm x 3 cm x 3.8 cm longitudinal. It is well- circumscribed, several pulmonary nodules bilaterally present. Most do not appear to have calcific components. Largest of these on the left at the midthoracic level laterally within the upper lobe measuring 0.8 cm x 0.6 mm. in left posterior basilar aspect, there is a1.1cm x 0.5 cm nodule, within the right mid thoracic level within the upper lobe along the major fissure, there is a 0. 7 cm diameter nodule. Possibility of this representing a perifissural lymph node is raised considering its location, other nodules present mostly not adjacent to the fissure, an enlarged lymph node anterior to the hiatal hernia measuring 3.5 cm x 2.9 cm. Smaller lymph nodes or masses along the left side of the descending thoracic aorta, largest measures 2 cm in diameter. Significant nodular contour of the liver compatible with cirrhosis, hypoenhancing region involving the liver inferior to the level of the middle hepatic vein measuring 4.2 cm x 3 cm. Splenomegaly present with 17 cm in longitudinal measurement. Moderate amount of ascites is noted involving the abdomen and pelvis Nonenlarged lymph nodes are present involving the retroperitoneum. Masses present just superior to the pancreatic neck measuring 4.2 cm x 4.3 cm. Additional masses present along the posterior inferior margin of the gastric cardia with heterogeneous enhancement. It measures 4.5 cm x 3.4 cm. Labs on 08/09/2019 showed WBC 9.2, Hgb 13.7, Plt 147. On 08/09/2019, paracentesis was performed. Cytology was negative for malignant cells. MRI abdomen combo was performed on 08/10/2019. It showed cirrhosis with stigmata of portal hypertension including splenomegaly. No definite esophageal or gastric varices are identified. There is abnormal signal involving various segm ents of the hepatic parenchyma with at least a single lesion in the right hepatic dome, segment VII measuring 2.7 x 2.5 cm with suspicious characteristics for hepatocellular carcinoma (LI-RADS 5). However, there is abnormal pattern of enhancement involving the medial and lateral segments of the left hepatic lobe with heterogeneous T2 signal alteration suspicious for diffuse infiltrative hepatocellular carcinoma. Pathologically enlarged gastrohepatic and peripancreatic lymph nodes are present, likely metastatic. Patient is being seen for consultation at the request of Dr. Alen Reese. Today, Nayan is present with his Gu[place]upe. He is being seen via telecommunications platform with [facility]. Denies nausea or vomiting. Reports abdominal pain and worsening abdominal distention. Nayan reports he noticed a left supraclavicular lymph node "a long time ago". Past Medical History Cardiovascular: HTN Pulmonary: COPD Infectious disease: Other (Hepatitis C.) Endocrine: Diabetes Past Surgical History Past Surgical History: No pertinent history Family History Family History: High Cholestrol, Hypertension Social History 1 pack per day ALCOHOL: other (Quit in 2004) Drugs: None Current Problem List Problem List Problems Medical Problems: (1) Ascites Status: Acute Current Medications Current Medications Current Medications Fentanyl Citrate (Fentanyl 2ml Vial) 50 mcg 1X ONCE IVP Last administered on 08/09/19at 13:36; Start 08/09/19 at 13:30; Stop 08/09/19 at 13:31; Status DC Sodium Chloride 1,000 ml @ 1,000 mls/hr 1X ONCE IV Last administered on 08/09/19at 13:36; Start 08/09/19 at 13:30; Stop 08/09/19 at 14:29; Status DC Iohexol (Omnipaque 350 Mg/ml) 100 ml 1X ONCE IV Last administered on 08/09/19at 14:23; Start 08/09/19 at 14:15; Stop 08/09/19 at 14:16; Status DC Info (CONTRAST GIVEN -- Rx MONITORING) 1 each PRN DAILY PRN MC SEE COMMENTS; Start 08/09/19 at 14:15; Stop 08/11/19 at 14:14; Status DC Sodium Chloride 1,000 ml @ 1,000 mls/hr 1X ONCE IV Last administered on 08/09/19at 14:35; Start 08/09/19 at 14:30; Stop 08/09/19 at 15:29; Status DC Ondansetron HCl (Zofran) 4 mg PRN Q8HRS PRN IV NAUSEA/VOMITING; Start 08/09/19 at 15:45; Stop 08/09/19 at 16:40; Status DC Fentanyl Citrate (Fentanyl 2ml Vial) 50 mcg PRN Q1HR PRN IV PAIN Last administered on 08/10/19at 02:42; Start 08/09/19 at 15:45; Stop 08/10/19 at 03:46; Status DC Ondansetron HCl (Zofran) 4 mg PRN Q4HRS PRN IV NAUSEA/VOMITING; Start 08/09/19 at 16:30 Insulin Glargine (Lantus Syringe) 5 unit QHS SQ Last administered on 08/10/19at 21:27; Start 08/09/19 at 21:00 Insulin Human Lispro (HumaLOG) 0-7 UNITS TIDACHC SQ ; Start 08/09/19 at 21:00 Dextrose (Dextrose 50%-Water Syringe) 12.5 gm PRN Q15MIN PRN IV SEE COMMENTS Last administered on 08/10/19at 08:45; Start 08/09/19 at 17:15 Albuterol Sulfate (Ventolin Neb Soln) 2.5 mg PRN Q4HRS PRN NEB SHORTNESS OF BREATH; Start 08/09/19 at 17:15 Furosemide (Lasix) 20 mg 1X ONCE IVP Last administered on 08/09/19at 21:07; Start 08/09/19 at 17:45; Stop 08/09/19 at 17:46; Status DC Furosemide (Lasix) 20 mg DAILY PO Last administered on 08/11/19at 08:25; Start 08/10/19 at 09:00 Spironolactone (Aldactone) 50 mg DAILY PO Last administered on 08/11/19at 08:24; Start 08/10/19 at 09:00 Heparin Sodium (Porcine) (Heparin Sodium) 5,000 unit Q8HRS SQ Last administered on 08/11/19at 14:05; Start 08/09/19 at 22:00 Morphine Sulfate (Morphine Sulfate) 2 mg PRN Q2HR PRN IV SEVERE PAIN 7-10 Last administered on 08/11/19at 14:10; Start 08/10/19 at 03:45 Quetiapine Fumarate (SEROquel) 25 mg HS PO Last administered on 08/10/19at 2 1:23; Start 08/10/19 at 21:00 Lidocaine HCl (Buffered Lidocaine 1%) 3 ml STK-MED ONCE .ROUTE ; Start 08/10/19 at 10:13; Stop 08/10/19 at 10:14; Status DC Lidocaine HCl (Buffered Lidocaine 1%) 6 ml 1X ONCE INJ Last administered on 08/10/19at 10:21; Start 08/10/19 at 10:30; Stop 08/10/19 at 10:31; Status DC Albumin Human 100 ml @ 100 mls/hr 1X ONCE IV Last administered on 08/10/19at 10:48; Start 08/10/19 at 11:00; Stop 08/10/19 at 11:59; Status DC Sodium Chloride 1,000 ml @ 75 mls/hr [id number] IV Last administered on 08/11/19at 03:52; Start 08/10/19 at 14:15 Gadoterate Meglumine (Dotarem) 18.2 ml 1X ONCE IVP Last administered on 08/10/19at 15:30; Start 08/10/19 at 15:30; Stop 08/10/19 at 15:31; Status DC Allergies Allergies: Coded Allergies: Penicillins (Verified Allergy, Intermediate, 08/10/19) Physical Exam General: Alert, No acute distress, Other (Left retroclavicular lymph node.) Vitals VITALS Vital Signs Date Time Temp Pulse Resp B/P (MAP) Pulse Ox O2 Delivery O2 Flow Rate FiO2 08/11/19 15:06 Room Air 08/11/19 15:00 98.6 83 16 137/80 (99) 93 98.6 08/11/19 07:00 2.0 Labs Labs Laboratory Tests Test 08/09/19 17:20 08/09/19 21:07 08/09/19 22:18 08/10/19 02:06 Lactic Acid Level 1.6 mmol/L (0.4-2.0) Carcinoembryonic Antigen 3.5 ng/mL (0.0-4.7) CA 19-9 Antigen 14 U/mL (0-35) Hepatitis A IgM Antibody Nonreactive (Nonreactive) Hepatitis B Surface Antigen Nonreactive (Nonreactive) Hepatitis B Core IgM Antibody Nonreactive (Nonreactive) Hepatitis C IgG Antibody Reactive (Nonreactive) Glucose (Fingerstick) 117 mg/dL (70-99) Urine Collection Type Unknown Urine Color Dk yellow Urine Clarity Clear Urine pH 6.0 (<5.0-8.0) Urine Specific Ambrose >=1.030 (1.000-1.030) Urine Protein Negative mg/dL (NEG-TRACE) Urine Glucose (UA) Negative mg/dL (NEG) Urine Ketones (Stick) Negative mg/dL (NEG) Urine Blood Negative (NEG) Urine Nitrite Negative (NEG) Urine Bilirubin Negative (NEG) Urine Urobilinogen Dipstick 1.0 mg/dL (0.2 mg/dL) Urine Leukocyte Esterase Negative (NEG) Urine RBC 0 /HPF (0-2) Urine WBC Rare /HPF (0-4) Urine Squamous Epithelial Cells None /LPF Urine Bacteria 0 /HPF (0-FEW) Urine Mucus Mod /LPF Urine Opiates Screen Neg (NEG) Urine Methadone Screen Neg (NEG) Urine Barbiturates Neg (NEG) Urine Phencyclidine Screen Neg (NEG) Urine Amphetamine/Methamphetamine Pos (NEG) Urine Benzodiazepines Screen Neg (NEG) Urine Cocaine Screen Neg (NEG) Urine Cannabinoids Screen Neg (NEG) Urine Ethyl Alcohol Neg (NEG) White Blood Count 9.1 x10^3/uL (4.0-11.0) Red Blood Count 4.79 x10^6/uL (4.30-5.70) Hemoglobin 14.5 g/dL (13.0-17.5) Hematocrit 43.9 % (39.0-53.0) Mean Corpuscular Volume 92 fL (79-100) Mean Corpuscular Hemoglobin 30 pg (25-35) Mean Corpuscular Hemoglobin Concent 33 g/dL (31-37) Red Cell Distribution Width 15.1 % (11.5-14.5) Platelet Count 158 x10^3/uL (140-400) Neutrophils (%) (Auto) 68 % (31-73) Lymphocytes (%) (Auto) 18 % (24-48) Monocytes (%) (Auto) 10 % (0-9) Eosinophils (%) (Auto) 3 % (0-3) Basophils (%) (Auto) 1 % (0-3) Neutrophils # (Auto) 6.2 x10^3/uL (1.8-7.7) Lymphocytes # (Auto) 1.7 x10^3/uL (1.0-4.8) Monocytes # (Auto) 0.9 x10^3/uL (0.0-1.1) Eosinophils # (Auto) 0.3 x10^3/uL (0.0-0.7) Basophils # (Auto) 0.1 x10^3/uL (0.0-0.2) Sodium Level 139 mmol/L (136-145) Potassium Level 4.0 mmol/L (3.5-5.1) Chloride Level 102 mmol/L (98-107) Carbon Dioxide Level 25 mmol/L (21-32) Anion Gap 12 (6-14) Blood Urea Nitrogen 13 mg/dL (8-26) Creatinine 0.7 mg/dL (0.7-1.3) Estimated GFR (Cockcroft-Gault) 114.3 BUN/Creatinine Ratio 19 (6-20) Glucose Level 85 mg/dL (70-99) Calcium Level 8.4 mg/dL (8.5-10.1) Total Bilirubin 1.2 mg/dL (0.2-1.0) Aspartate Amino Transf (AST/SGOT) 229 U/L (15-37) Alanine Aminotransferase (ALT/SGPT) 77 U/L (16-63) Alkaline Phosphatase 465 U/L (46-116) Total Protein 6.0 g/dL (6.4-8.2) Albumin 2.6 g/dL (3.4-5.0) Albumin/Globulin Ratio 0.8 (1.0-1.7) Test 08/10/19 08:21 08/10/19 08:30 08/10/19 10:10 08/10/19 10:25 Glucose (Fingerstick) 66 mg/dL (70-99) 94 mg/dL (70-99) Tumor Marker Alpha Fetoprotein Diluted result ng/mL Body Fluid Source Ascites Body Fluid Color Straw Body Fluid Clarity Hazy Body Fluid Nucleated Cells 143 /cmm (Not Established) Body Fluid Mononuclear WBCs (%) 33 % Body Fluid Polymorphonuclear Cells 11 % Body Fluid Total RBCs Counted 1787 /cmm (Not Established) Body Fluid Other Cells (%) 56 % Test 08/10/19 11:43 08/10/19 16:30 08/10/19 20:57 08/11/19 03:57 Glucose (Fingerstick) 86 mg/dL (70-99) 90 mg/dL (70-99) 92 mg/dL (70-99) White Blood Count 8.7 x10^3/uL (4.0-11.0) Red Blood Count 4.30 x10^6/uL (4.30-5.70) Hemoglobin 13.1 g/dL (13.0-17.5) Hematocrit 39.2 % (39.0-53.0) Mean Corpuscular Volume 91 fL (79-100) Mean Corpuscular Hemoglobin 31 pg (25-35) Mean Corpuscular Hemoglobin Concent 34 g/dL (31-37) Red Cell Distribution Width 14.8 % (11.5-14.5) Platelet Count 145 x10^3/uL (140-400) Neutrophils (%) (Auto) 65 % (31-73) Lymphocytes (%) (Auto) 21 % (24-48) Monocytes (%) (Auto) 11 % (0-9) Eosinophils (%) (Auto) 2 % (0-3) Basophils (%) (Auto) 1 % (0-3) Neutrophils # (Auto) 5.6 x10^3/uL (1.8-7.7) Lymphocytes # (Auto) 1.8 x10^3/uL (1.0-4.8) Monocytes # (Auto) 1.0 x10^3/uL (0.0-1.1) Eosinophils # (Auto) 0.2 x10^3/uL (0.0-0.7) Basophils # (Auto) 0.1 x10^3/uL (0.0-0.2) Sodium Level 135 mmol/L (136-145) Potassium Level 4.0 mmol/L (3.5-5.1) Chloride Level 100 mmol/L (98-107) Carbon Dioxide Level 27 mmol/L (21-32) Anion Gap 8 (6-14) Blood Urea Nitrogen 14 mg/dL (8-26) Creatinine 0.8 mg/dL (0.7-1.3) Estimated GFR (Cockcroft-Gault) 98.0 BUN/Creatinine Ratio 18 (6-20) Glucose Level 149 mg/dL (70-99) Calcium Level 8.5 mg/dL (8.5-10.1) Total Bilirubin 1.4 mg/dL (0.2-1.0) Aspartate Amino Transf (AST/SGOT) 234 U/L (15-37) Alanine Aminotransferase (ALT/SGPT) 63 U/L (16-63) Alkaline Phosphatase 432 U/L (46-116) Total Protein 6.2 g/dL (6.4-8.2) Albumin 2.7 g/dL (3.4-5.0) Albumin/Globulin Ratio 0.8 (1.0-1.7) Test 08/11/19 06:29 08/11/19 07:54 08/11/19 11:35 Glucose (Fingerstick) 93 mg/dL (70-99) 143 mg/dL (70-99) 113 mg/dL (70-99) Laboratory Tests Test 08/10/19 20:57 08/11/19 03:57 08/11/19 06:29 08/11/19 07:54 Glucose (Fingerstick) 92 mg/dL (70-99) 93 mg/dL (70-99) 143 mg/dL (70-99) White Blood Count 8.7 x10^3/uL (4.0-11.0) Red Blood Count 4.30 x10^6/uL (4.30-5.70) Hemoglobin 13.1 g/dL (13.0-17.5) Hematocrit 39.2 % (39.0-53.0) Mean Corpuscular Volume 91 fL (79-100) Mean Corpuscular Hemoglobin 31 pg (25-35) Mean Corpuscular Hemoglobin Concent 34 g/dL (31-37) Red Cell Distribution Width 14.8 % (11.5-14.5) Platelet Count 145 x10^3/uL (140-400) Neutrophils (%) (Auto) 65 % (31-73) Lymphocytes (%) (Auto) 21 % (24-48) Monocytes (%) (Auto) 11 % (0-9) Eosinophils (%) (Auto) 2 % (0-3) Basophils (%) (Auto) 1 % (0-3) Neutrophils # (Auto) 5.6 x10^3/uL (1.8-7.7) Lymphocytes # (Auto) 1.8 x10^3/uL (1.0-4.8) Monocytes # (Auto) 1.0 x10^3/uL (0.0-1.1) Eosinophils # (Auto) 0.2 x10^3/uL (0.0-0.7) Basophils # (Auto) 0.1 x10^3/uL (0.0-0.2) Sodium Level 135 mmol/L (136-145) Potassium Level 4.0 mmol/L (3.5-5.1) Chloride Level 100 mmol/L (98-107) Carbon Dioxide Level 27 mmol/L (21-32) Anion Gap 8 (6-14) Blood Urea Nitrogen 14 mg/dL (8-26) Creatinine 0.8 mg/dL (0.7-1.3) Estimated GFR (Cockcroft-Gault) 98.0 BUN/Creatinine Ratio 18 (6-20) Glucose Level 149 mg/dL (70-99) Calcium Level 8.5 mg/dL (8.5-10.1) Total Bilirubin 1.4 mg/dL (0.2-1.0) Aspartate Amino Transf (AST/SGOT) 234 U/L (15-37) Alanine Aminotransferase (ALT/SGPT) 63 U/L (16-63) Alkaline Phosphatase 432 U/L (46-116) Total Protein 6.2 g/dL (6.4-8.2) Albumin 2.7 g/dL (3.4-5.0) Albumin/Globulin Ratio 0.8 (1.0-1.7) Test 08/11/19 11:35 Glucose (Fingerstick) 113 mg/dL (70-99) Images Images 08/10/2019 ABDOMEN WO/W CONTRAST INDICATION: 64 years old Male. Cirrhosis, hepatocellular carcinoma screening COMPARISON: None. There is bibasilar subsegmental atelectasis. Heart size is within normal limits. Edie conglomerate is identified in the paraesophageal distribution best seen on coronal T2-weighted images. Largest left paraesophageal lymph node measures up to 1.9 cm (series 12, image 5). No significant difference is signal intensity with regards to and out of phase imaging to suggest underlying hepatic steatosis. Spleen is enlarged measuring 15.8 cm in craniocaudal dimension. Pancreas is normal in appearance. No pancreatic ductal dilatation. Gallbladder is contracted. There is nodular contour of the hepatic parenchyma in keeping with provided history of underlying cirrhosis. No intrinsic T1 hyperintense nodules are identified. Geographic areas of T2 signal hyperintensity are identified. Nodular areas of T2 signal hyperintensity are noted in the lateral segment left hepatic lobe measuring up to 16 mm (series 7, image 17). However, no definite suspicious enhancing features are identified in this region. There is more reticulated enhancement pattern throughout the hepatic parenchyma with more significant heterogeneity involving the lateral and medial segments of the left hepatic lobe. In the area corresponding with a hypoattenuating lesion within the right hepatic dome, there is a lesion measuring 2.7 x 2.5 cm with central washout features and peripheral pseudocapsule. This finding is suspicious for hepatocellular carcinoma. Similar pattern is noted throughout the medial and lateral segments of the left hepatic lobe. Small volume abdominal ascites. Abdominal aorta is normal in course and caliber. Enlarged gastrohepatic and peripancreatic lymph nodes are identified measuring 4.0 x 4.6 cm the gastric hepatic space and 4.0 x 4.3 cm in the peripancreatic space. Kidneys are normal in appearance. Visualized portions of bowel appear normal. No suspicious osseous abnormality is identified. IMPRESSION: Cirrhosis with stigmata of portal hypertension including splenomegaly. No definite esophageal or gastric varices are identified. There is abnormal signal involving various segments of the hepatic parenchyma with at least a single lesion in the right hepatic dome, segment VII measuring 2.7 x 2.5 cm with suspicious characteristics for hepatocellular carcinoma (LI-RADS 5). However, there is abnormal pattern of enhancement involving the medial and lateral segments of the left hepatic lobe with heterogeneous T2 signal alteration suspicious for diffuse infiltrative hepatocellular carcinoma. Tissue sampling may be of benefit. Pathologically enlarged gastrohepatic and peripancreatic lymph nodes are present, likely metastatic. Assessment/Plan Assessment/Plan 64 year-old male with probable HCC with metastases to left supraclavicular l/n and pulmonary mets. - AFP [phone] on 08/10/2019. Despite markedly elevated AFP, liver biopsy or supraclavicular lymph node biopsy would be indicated to confirm diagnosis and type of HCC. Further work-up will include outpatient PET/CT. Treatment options would include Lenvima, Tecentriq/Avastin as a first line, possibly followed by Ipi/nivo, cabozantinib as a second line. Depending on patients symptoms he may require repeat large volume paracentesis possibly prior to discharge from hospital, as per hospitalist team. IMbrave study, a phase III randomized study, in which patients with unresectable HCC and no prior systemic therapies in a 2:1 ratio received either atezolizumab plus bevacizumab or sorafenib (Nexavar) alone. The combination reduced the risk of in patients with HCC by 42% compared with sorafenib monotherapy (HR, 0.58; 95% CI). PFS was also improved with atezolizumab and bevacizumab by 41% (HR, 0.59; 95% CI). In the combination arm, the median OS was not reached versus 13.2 months in the sorafenib arm. The median PFS was 6.8 months in patients who received atezolizumab plus bevacizumab and 4.3 months in those who received sorafenib. (Abstract LBA3, Presented at [facility] 02/05/19). Will see the patient for outpatient follow-up. PLAN: 1. Liver biopsy or left supraclavicular lymph node biopsy, while inpatient, if possible. 2. PET/CT will be obtained as outpatient. 3. Repeat large volume paracentesis prior to discharge from hospital, if deemed appropriate by hospitalist team. 4. The patient may require port, if Tecentriq/Avastin is approved. 5. Follow-up at [facility] at 12:45 p.m. on 08/16/2019. ARRON FUCHS MD August 11, 2019 17:44
[2019-08-11 19:15] VITALS: BP 161/74
[2019-08-11] MEDS: INSULIN GLARGINE SYRINGE. SQ SCH (21:16)
[2019-08-11] MEDS: QUEtiapine 25 MG TABLET. PO SCH (21:16)
[2019-08-11 23:44] VITALS: BP 139/70
[2019-08-12 03:19] VITALS: BP 127/81
[2019-08-12] MEDS: MORPHINE SULFATE 2 MG/ML VIAL. IV PRN ×2 (05:27→15:36)
[2019-08-12] MEDS: IV 1/2 NORMAL SALINE 1,000 ML IV SCH (05:27)
[2019-08-12] MEDS: HEPARIN for SUB-Q USE 5,000 UNIT/ML VIAL. SQ SCH ×2 (06:33→14:38)
--- NOTE | 2019-08-12 06:55 | NUR ---
IP: Pt is COVID negative.
[2019-08-12 07:00] VITALS: BP 154/72
[2019-08-12] MEDS: INSULIN LISPRO 300 UNITS/3 ML VIAL. SQ SCH ×2 (07:30→11:30)
--- NOTE | 2019-08-12 08:20 | PDOC ---
PROGRESS NOTES Chief Complaint Chief Complaint A/P: Spontaneous ascites - almost certainly due to progression of cirrhosis of liver. Especially concerning that he has stopped drinking and is in SVR from his hep C. D/w IR to have diagnostic and therapeutic paracentesis in AM if possible. GI consulted as well. Cirrhosis - with splenomegaly and spontaneous ascites risk factors of hep C and history of EtOH abuse. nodular contour of the liver compatible with cirrhosis.// GI consulted. Transaminitis - likely related to acute decompensated liver failure or acute hepatitis or congestive hepatopathy. 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 Abdominal doppler would be appropriate after paracentesis and at that time can assess for possible portal thrombus as well Multiple pulmonary nodules. Also noted is a mass at the left base of the neck. In addition, multiple enlarged masses along the left side of the ascending thoracic aorta and anterior to a hiatal hernia and upper abdominal enlarged lymph nodes or masses. Pulm consulted, Hypoattenuation involving the liver which raises possibility of mass lesion - Elevated AFP almost certainly concerning for hepatocellular carcinoma COPD - prn nebs ordered Diabetes-Type II - basal bolus plus insulin while inpatient Hypertension - will reconcile meds with [facility] H/o Hep C s/p SVR treatment - will check acute hepatitis panel. Will f/u PCR FEN - ADA diet PPX - heparin TID FULL CODE Dispo - inpatient consult GI MRI of the liver with tumor markers 39 MIN pt exam, chart review, > 50% of time spent with exam, chart review, pt care coordination History of Present Illness History of Present Illness Mr Sims is a 64 yo M [place] who gets most of his care at the [facility] w/ PMHx COPD, Diabetes-Type II, Hypertension, Hep C s/p SVR treatment (initially did not disclose this), smoker who presents with chest tightness and abdominal pain. Abdominal pain rates a 10 out of 10. He states that he has been having regular bowel movements. He states 2 days ago he was a bit constipated but he is no longer constipated. He states he has not had any nausea or vomiting or diarrhea. He states he does not have any chest pain currently. On ROS he also notes new shortness of breath which has been progressive. He also notes abdominal pain on movement. He is asking for food and he is worried about his being upset after he was told he probably has cancer based on his abnormal CT scan. He notes states about 10 days ago he was trying to lift the back of a lawnmower when he felt a pop in his chest and abdomen area. 3 days ago he tried to lift a tractor and felt the same sensation. 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 Also noted is a mass at the left base of the neck. In addition, multiple enlarged masses along the left side of the ascending thoracic aorta and anterior to a hiatal hernia and upper abdominal enlarged lymph nodes or masses. Finally notable is hepatic cirrhosis with splenomegaly and hypoattenuation involving the liver which raises possibility of mass lesion is noted. Moderate to large amount of ascites. Labs significant for WBC 9.2, Hb 13.7, platelets 147, NA 135, K4, BUN 14, CR 0.7, glucose 208, AST 213, ALT 75, alk phos 464, albumin 2.7, lipase 172, INR 1.1, troponin negative. Admitted for further care. Consulted GI, Pulm, IR. 08/09: MRI abdomen: Cirrhosis with stigmata of portal hypertension including splenomegaly. No definite esophageal or gastric varices are identified. There is abnormal signal involving various segments of the hepatic parenchyma with at least a single lesion in the right hepatic dome, segment VII measuring 2.7 x 2.5 cm with suspicious characteristics for hepatocellular carcinoma (LI- RADS 5). However, there is abnormal pattern of enhancement involving the medial and lateral segments of the left hepatic lobe with heterogeneous T2 signal alteration suspicious for diffuse infiltrative hepatocellular carcinoma. Tissue sampling may be of benefit. Pathologically enlarged gastrohepatic and peripancreatic lymph nodes are present, likely metastatic. 08/10: Overnight notes his abdomen swelled up again. His shortness of breath has improved. LFTs stable. Gram stain of abdominal fluid shows rare GPC's, negative for malignant cells per pathology. Discussed with patient will likely need further testing likely including liver biopsy will discuss with oncology. Overnight no events. 2.5 L paracentesis this morning. He feels better not short of breath no CP or S OB. He understands he likely has hepatocellular carcinoma and does not want to "sit around all weekend" and says he will return outpatient for biopsy. Plan: Discharge per patient wishes, he wants biopsy outpatient next week. Will schedule with [facility] at 12:45 p.m. on 08/16/2019 for oncology f/u Vitals Vitals Vital Signs Date Time Temp Pulse Resp B/P (MAP) Pulse Ox O2 Delivery O2 Flow Rate FiO2 08/12/19 07:00 98.6 82 18 154/72 (99) 92 Nasal Cannula 2.0 98.6 Physical Exam General: Alert, No acute distress, Other (Left retroclavicular lymph node.) Lungs: Other (decrease bs) Abdomen: Normal bowel sounds, Soft, No hepatosplenomegaly, No masses, Other (positive fluid wave, large ascites) Extremities: No clubbing, No cyanosis, No edema, Normal pulses, No tenderness/swelling Skin: No rashes, No breakdown, No significant lesion Labs LABS Laboratory Tests Test 08/11/19 11:35 08/11/19 16:51 08/11/19 21:09 08/12/19 07:16 Glucose (Fingerstick) 113 mg/dL (70-99) 130 mg/dL (70-99) 105 mg/dL (70-99) 72 mg/dL (70-99) Assessment and Plan Assessmemt and Plan Problems Medical Problems: (1) Ascites Status: Acute Comment Review of Relevant I have reviewed the following items adilson (where applicable) has been applied. Labs Laboratory Tests Test 08/10/19 08:21 08/10/19 08:30 08/10/19 10:10 08/10/19 10:25 Glucose (Fingerstick) 66 mg/dL (70-99) 94 mg/dL (70-99) Tumor Marker Alpha Fetoprotein Diluted result ng/mL Body Fluid Source Ascites Body Fluid Color Straw Body Fluid Clarity Hazy Body Fluid Nucleated Cells 143 /cmm (Not Established) Body Fluid Mononuclear WBCs (%) 33 % Body Fluid Polymorphonuclear Cells 11 % Body Fluid Total RBCs Counted 1787 /cmm (Not Established) Body Fluid Other Cells (%) 56 % Test 08/10/19 11:43 08/10/19 16:30 08/10/19 17:10 08/10/19 20:57 Glucose (Fingerstick) 86 mg/dL (70-99) 90 mg/dL (70-99) 92 mg/dL (70-99) Coronavirus (COVID-19)(PCR) Not detected (NOT DETECT.) Test 08/11/19 03:57 08/11/19 06:29 08/11/19 07:54 08/11/19 11:35 White Blood Count 8.7 x10^3/uL (4.0-11.0) Red Blood Count 4.30 x10^6/uL (4.30-5.70) Hemoglobin 13.1 g/dL (13.0-17.5) Hematocrit 39.2 % (39.0-53.0) Mean Corpuscular Volume 91 fL (79-100) Mean Corpuscular Hemoglobin 31 pg (25-35) Mean Corpuscular Hemoglobin Concent 34 g/dL (31-37) Red Cell Distribution Width 14.8 % (11.5-14.5) Platelet Count 145 x10^3/uL (140-400) Neutrophils (%) (Auto) 65 % (31-73) Lymphocytes (%) (Auto) 21 % (24-48) Monocytes (%) (Auto) 11 % (0-9) Eosinophils (%) (Auto) 2 % (0-3) Basophils (%) (Auto) 1 % (0-3) Neutrophils # (Auto) 5.6 x10^3/uL (1.8-7.7) Lymphocytes # (Auto) 1.8 x10^3/uL (1.0-4.8) Monocytes # (Auto) 1.0 x10^3/uL (0.0-1.1) Eosinophils # (Auto) 0.2 x10^3/uL (0.0-0.7) Basophils # (Auto) 0.1 x10^3/uL (0.0-0.2) Sodium Level 135 mmol/L (136-145) Potassium Level 4.0 mmol/L (3.5-5.1) Chloride Level 100 mmol/L (98-107) Carbon Dioxide Level 27 mmol/L (21-32) Anion Gap 8 (6-14) Blood Urea Nitrogen 14 mg/dL (8-26) Creatinine 0.8 mg/dL (0.7-1.3) Estimated GFR (Cockcroft-Gault) 98.0 BUN/Creatinine Ratio 18 (6-20) Glucose Level 149 mg/dL (70-99) Calcium Level 8.5 mg/dL (8.5-10.1) Total Bilirubin 1.4 mg/dL (0.2-1.0) Aspartate Amino Transf (AST/SGOT) 234 U/L (15-37) Alanine Aminotransferase (ALT/SGPT) 63 U/L (16-63) Alkaline Phosphatase 432 U/L (46-116) Total Protein 6.2 g/dL (6.4-8.2) Albumin 2.7 g/dL (3.4-5.0) Albumin/Globulin Ratio 0.8 (1.0-1.7) Glucose (Fingerstick) 93 mg/dL (70-99) 143 mg/dL (70-99) 113 mg/dL (70-99) Test 08/11/19 16:51 08/11/19 21:09 08/12/19 07:16 Glucose (Fingerstick) 130 mg/dL (70-99) 105 mg/dL (70-99) 72 mg/dL (70-99) Laboratory Tests Test 08/11/19 11:35 08/11/19 16:51 08/11/19 21:09 08/12/19 07:16 Glucose (Fingerstick) 113 mg/dL (70-99) 130 mg/dL (70-99) 105 mg/dL (70-99) 72 mg/dL (70-99) Microbiology 08/10/19 Gram Stain - Final, Resulted 08/10/19 Aerobic and Anaerobic Culture - Preliminary, Resulted Medications Current Medications Fentanyl Citrate (Fentanyl 2ml Vial) 50 mcg 1X ONCE IVP Last administered on 08/09/19at 13:36; Start 08/09/19 at 13:30; Stop 08/09/19 at 13:31; Status DC Sodium Chloride 1,000 ml @ 1,000 mls/hr 1X ONCE IV Last administered on 08/09/19at 13:36; Start 08/09/19 at 13:30; Stop 08/09/19 at 14:29; Status DC Iohexol (Omnipaque 350 Mg/ml) 100 ml 1X ONCE IV Last administered on 08/09/19at 14:23; Start 08/09/19 at 14:15; Stop 08/09/19 at 14:16; Status DC Info (CONTRAST GIVEN -- Rx MONITORING) 1 each PRN DAILY PRN MC SEE COMMENTS; Start 08/09/19 at 14:15; Stop 08/11/19 at 14:14; Status DC Sodium Chloride 1,000 ml @ 1,000 mls/hr 1X ONCE IV Last administered on 08/09/19at 14:35; Start 08/09/19 at 14:30; Stop 08/09/19 at 15:29; Status DC Ondansetron HCl (Zofran) 4 mg PRN Q8HRS PRN IV NAUSEA/VOMITING; Start 08/09/19 at 15:45; Stop 08/09/19 at 16:40; Status DC Fentanyl Citrate (Fentanyl 2ml Vial) 50 mcg PRN Q1HR PRN IV PAIN Last administered on 08/10/19at 02:42; Start 08/09/19 at 15:45; Stop 08/10/19 at 03:46; Status DC Ondansetron HCl (Zofran) 4 mg PRN Q4HRS PRN IV NAUSEA/VOMITING; Start 08/09/19 at 16:30 Insulin Glargine (Lantus Syringe) 5 unit QHS SQ Last administered on 08/11/19at 21:16; Start 08/09/19 at 21:00 Insulin Human Lispro (HumaLOG) 0-7 UNITS TIDACHC SQ ; Start 08/09/19 at 21:00 Dextrose (Dextrose 50%-Water Syringe) 12.5 gm PRN Q15MIN PRN IV SEE COMMENTS Last administered on 08/10/19at 08:45; Start 08/09/19 at 17:15 Albuterol Sulfate (Ventolin Neb Soln) 2.5 mg PRN Q4HRS PRN NEB SHORTNESS OF BREATH; Start 08/09/19 at 17:15 Furosemide (Lasix) 20 mg 1X ONCE IVP Last administered on 08/09/19at 21:07; Start 08/09/19 at 17:45; Stop 08/09/19 at 17:46; Status DC Furosemide (Lasix) 20 mg DAILY PO Last administered on 08/11/19at 08:25; Start 08/10/19 at 09:00 Spironolactone (Aldactone) 50 mg DAILY PO Last administered on 08/11/19at 08:24; Start 08/10/19 at 09:00 Heparin Sodium (Porcine) (Heparin Sodium) 5,000 unit Q8HRS SQ Last administered on 08/12/19 06:33; Start 08/09/19 at 22:00 Morphine Sulfate (Morphine Sulfate) 2 mg PRN Q2HR PRN IV SEVERE PAIN 7-10 Last administered on 08/11/19at 22:29; Start 08/10/19 at 03:45 Quetiapine Fumarate (SEROquel) 25 mg HS PO Last administered on 08/11/19at 21 :16; Start 08/10/19 at 21:00 Lidocaine HCl (Buffered Lidocaine 1%) 3 ml STK-MED ONCE .ROUTE ; Start 08/10/19 at 10:13; Stop 08/10/19 at 10:14; Status DC Lidocaine HCl (Buffered Lidocaine 1%) 6 ml 1X ONCE INJ Last administered on 08/10/19at 10:21; Start 08/10/19 at 10:30; Stop 08/10/19 at 10:31; Status DC Albumin Human 100 ml @ 100 mls/hr 1X ONCE IV Last administered on 08/10/19at 10:48; Start 08/10/19 at 11:00; Stop 08/10/19 at 11:59; Status DC Sodium Chloride 1,000 ml @ 75 mls/hr [id number] IV Last administered on 08/12/19at 05:27; Start 08/10/19 at 14:15 Gadoterate Meglumine (Dotarem) 18.2 ml 1X ONCE IVP Last administered on 08/10/19at 15:30; Start 08/10/19 at 15:30; Stop 08/10/19 at 15:31; Status DC Morphine Sulfate (Morphine Sulfate) 4 mg PRN Q2HR PRN IV PAIN Last administered on 08/12/19at 05:27; Start 08/11/19 at 23:30 Lorazepam (Ativan Inj) 1 mg PRN QHS PRN IVP ANXIETY / AGITATION Last administered on 08/11/19at 23:48; Start 08/11/19 at 23:30 Vitals/I & O Vital Sign - Last 24 Hours 08/11/19 08/11/19 08/11/19 08/11/19 08:24 11:00 11:37 12:15 Temp 97.9 97.9 Pulse 78 Resp 16 B/P (MAP) 149/79 (102) Pulse Ox 92 O2 Delivery Room Air Room Air Room Air Room Air 08/11/19 08/11/19 08/11/19 08/11/19 14:10 15:00 15:06 19:15 Temp 98.6 98.6 98.6 98.6 Pulse 83 85 Resp 16 18 B/P (MAP) 137/80 (99) 161/74 (103) Pulse Ox 93 91 O2 Delivery Room Air Room Air Room Air Room Air 08/11/19 08/11/19 08/11/19 08/11/19 20:00 20:11 20:41 22:29 Resp 20 20 Pulse Ox 93 93 93 O2 Delivery Room Air Room Air Room Air Nasal Cannula O2 Flow Rate 2.0 2.0 2.0 08/11/19 08/11/19 08/12/19 08/12/19 22:59 23:44 03:19 05:27 Temp 98.7 98.8 98.7 98.8 Pulse 90 91 Resp 20 18 18 B/P (MAP) 139/70 (93) 127/81 (96) Pulse Ox 93 94 92 92 O2 Delivery Room Air Nasal Cannula Nasal Cannula Room Air O2 Flow Rate 2.0 2.0 2.0 2.0 08/12/19 08/12/19 05:57 07:00 Temp 98.6 98.6 Pulse 82 Resp 20 18 B/P (MAP) 154/72 (99) Pulse Ox 92 92 O2 Delivery Room Air Nasal Cannula O2 Flow Rate 2.0 2.0 Intake and Output 08/11/19 08/11/19 08/12/19 14:59 22:59 06:59 Intake Total 120 ml 300 ml Output Total 800 ml Balance -680 ml 300 ml Hemodynamically unstable?: No Is patient in severe pain?: No Is NPO status required?: No ALISHA TREJO MD August 12, 2019 08:20
[2019-08-12] MEDS: FUROSEMIDE 20 MG TABLET PO SCH (08:37)
[2019-08-12] MEDS: SPIRONOLACTONE 25 MG TABLET PO SCH (08:37)
[2019-08-12 09:35] LABS: BASO # 0.1 x10^3/uL (0.0-0.2); BASO % 1 % (0-3); EOS # 0.1 x10^3/uL (0.0-0.7); EOS % 2 % (0-3); HEMATOCRIT 40.8 % (39.0-53.0); HEMOGLOBIN 13.5 g/dL (13.0-17.5); LYMPH # 1.5 x10^3/uL (1.0-4.8); LYMPH % 16 % (24-48); MEAN CORPUSCULAR HEMOGLOBIN 30 pg (25-35); MEAN CORPUSCULAR HGB CONC 33 g/dL (31-37); MEAN CORPUSCULAR VOLUME 90 fL (79-100); MONO % 11 % (0-9); NEUT # 6.5 x10^3/uL (1.8-7.7); NEUT % 70 % (31-73); PLATELET COUNT 152 x10^3/uL (140-400); RED BLOOD COUNT 4.52 x10^6/uL (4.30-5.70); RED CELL DISTRIBUTION WIDTH 14.9 % (11.5-14.5); WHITE BLOOD COUNT 9.2 x10^3/uL (4.0-11.0)
--- NOTE | 2019-08-12 10:00 | PDOC ---
Subjective: Subjective: Abdomen uncomfortable. Says he talked to the cancer doctor - doesn't seem to recall many details... Wants to go home, doesn't want to sit here over the weekend. Objective: Objective: D/w Dr. Moy yesterday and Dr. Reese d/w Dr. Alvarado. Reviewed oncology note: probable HCC w/ mets, biopsy indicated to confirm diagnosis (not ordered), outpt follow-up scheduled 08/16/19. Vital Signs: Vital Signs Date Time Temp Pulse Resp B/P (MAP) Pulse Ox O2 Delivery O2 Flow Rate FiO2 08/12/19 07:00 98.6 82 18 154/72 (99) 92 Nasal Cannula 2.0 98.6 Labs: Laboratory Tests Test 08/11/19 11:35 08/11/19 16:51 08/11/19 21:09 08/12/19 07:16 Glucose (Fingerstick) 113 mg/dL 130 mg/dL 105 mg/dL 72 mg/dL Test 08/12/19 08:30 White Blood Count 9.2 x10^3/uL Red Blood Count 4.52 x10^6/uL Hemoglobin 13.5 g/dL Hematocrit 40.8 % Mean Corpuscular Volume 90 fL Mean Corpuscular Hemoglobin 30 pg Mean Corpuscular Hemoglobin Concent 33 g/dL Red Cell Distribution Width 14.9 % Platelet Count 152 x10^3/uL Neutrophils (%) (Auto) 70 % Lymphocytes (%) (Auto) 16 % Monocytes (%) (Auto) 11 % Eosinophils (%) (Auto) 2 % Basophils (%) (Auto) 1 % Neutrophils # (Auto) 6.5 x10^3/uL Lymphocytes # (Auto) 1.5 x10^3/uL Monocytes # (Auto) 1.0 x10^3/uL Eosinophils # (Auto) 0.1 x10^3/uL Basophils # (Auto) 0.1 x10^3/uL AFB CULTURE GRAM STAIN Final Negative PE: GEN: NAD LUNGS: a bit tachypneic, NC 2L HEART: RRR ABD: tight/distended NEURO/PSYCH: A & O 3 A/P: Concern for metastatic HCC Cirrhosis/Hep C, recurrent ascites -- Uncomfortable - will ask for another paracentesis. Repeat CMP pending. Oncology recs as above - ?biopsy Hemodynamically unstable?: No Is patient in severe pain?: No Is NPO status required?: No HENRRY JARRELL August 12, 2019 10:00
[2019-08-12 10:06] LABS: ALBUMIN 2.6 g/dL (3.4-5.0); ALBUMIN/GLOBULIN RATIO 0.7 (1.0-1.7); CALCIUM 8.8 mg/dL (8.5-10.1); CREATININE 0.7 mg/dL (0.7-1.3); GFR 114.3; POTASSIUM 4.4 mmol/L (3.5-5.1); TOTAL BILIRUBIN 1.7 mg/dL (0.2-1.0); TOTAL PROTEIN 6.3 g/dL (6.4-8.2)
--- NOTE | 2019-08-12 10:06 | PDOC ---
PULMONARY PROGRESS NOTES Subjective no soa Vitals Vital Signs Date Time Temp Pulse Resp B/P (MAP) Pulse Ox O2 Delivery O2 Flow Rate FiO2 08/12/19 07:00 98.6 82 18 154/72 (99) 92 Nasal Cannula 2.0 98.6 ROS: No Chest Pain, No Abdominal Pain General: Alert, No acute distress Lungs: Other (decrease bs) Cardiovascular: S1 Abdomen: Soft, Other (tender) Neuro Exam: Alert Extremities: No Edema Skin: Warm Labs Laboratory Tests Test 08/10/19 10:10 08/10/19 10:25 08/10/19 11:43 08/10/19 16:30 Glucose (Fingerstick) 94 mg/dL (70-99) 86 mg/dL (70-99) 90 mg/dL (70-99) Body Fluid Source Ascites Body Fluid Color Straw Body Fluid Clarity Hazy Body Fluid Nucleated Cells 143 /cmm (Not Established) Body Fluid Mononuclear WBCs (%) 33 % Body Fluid Polymorphonuclear Cells 11 % Body Fluid Total RBCs Counted 1787 /cmm (Not Established) Body Fluid Other Cells (%) 56 % Test 08/10/19 17:10 08/10/19 20:57 08/11/19 03:57 08/11/19 06:29 Coronavirus (COVID-19)(PCR) Not detected (NOT DETECT.) Glucose (Fingerstick) 92 mg/dL (70-99) 93 mg/dL (70-99) White Blood Count 8.7 x10^3/uL (4.0-11.0) Red Blood Count 4.30 x10^6/uL (4.30-5.70) Hemoglobin 13.1 g/dL (13.0-17.5) Hematocrit 39.2 % (39.0-53.0) Mean Corpuscular Volume 91 fL (79-100) Mean Corpuscular Hemoglobin 31 pg (25-35) Mean Corpuscular Hemoglobin Concent 34 g/dL (31-37) Red Cell Distribution Width 14.8 % (11.5-14.5) Platelet Count 145 x10^3/uL (140-400) Neutrophils (%) (Auto) 65 % (31-73) Lymphocytes (%) (Auto) 21 % (24-48) Monocytes (%) (Auto) 11 % (0-9) Eosinophils (%) (Auto) 2 % (0-3) Basophils (%) (Auto) 1 % (0-3) Neutrophils # (Auto) 5.6 x10^3/uL (1.8-7.7) Lymphocytes # (Auto) 1.8 x10^3/uL (1.0-4.8) Monocytes # (Auto) 1.0 x10^3/uL (0.0-1.1) Eosinophils # (Auto) 0.2 x10^3/uL (0.0-0.7) Basophils # (Auto) 0.1 x10^3/uL (0.0-0.2) Sodium Level 135 mmol/L (136-145) Potassium Level 4.0 mmol/L (3.5-5.1) Chloride Level 100 mmol/L (98-107) Carbon Dioxide Level 27 mmol/L (21-32) Anion Gap 8 (6-14) Blood Urea Nitrogen 14 mg/dL (8-26) Creatinine 0.8 mg/dL (0.7-1.3) Estimated GFR (Cockcroft-Gault) 98.0 BUN/Creatinine Ratio 18 (6-20) Glucose Level 149 mg/dL (70-99) Calcium Level 8.5 mg/dL (8.5-10.1) Total Bilirubin 1.4 mg/dL (0.2-1.0) Aspartate Amino Transf (AST/SGOT) 234 U/L (15-37) Alanine Aminotransferase (ALT/SGPT) 63 U/L (16-63) Alkaline Phosphatase 432 U/L (46-116) Total Protein 6.2 g/dL (6.4-8.2) Albumin 2.7 g/dL (3.4-5.0) Albumin/Globulin Ratio 0.8 (1.0-1.7) Test 08/11/19 07:54 08/11/19 11:35 08/11/19 16:51 08/11/19 21:09 Glucose (Fingerstick) 143 mg/dL (70-99) 113 mg/dL (70-99) 130 mg/dL (70-99) 105 mg/dL (70-99) Test 08/12/19 07:16 08/12/19 08:30 Glucose (Fingerstick) 72 mg/dL (70-99) White Blood Count 9.2 x10^3/uL (4.0-11.0) Red Blood Count 4.52 x10^6/uL (4.30-5.70) Hemoglobin 13.5 g/dL (13.0-17.5) Hematocrit 40.8 % (39.0-53.0) Mean Corpuscular Volume 90 fL (79-100) Mean Corpuscular Hemoglobin 30 pg (25-35) Mean Corpuscular Hemoglobin Concent 33 g/dL (31-37) Red Cell Distribution Width 14.9 % (11.5-14.5) Platelet Count 152 x10^3/uL (140-400) Neutrophils (%) (Auto) 70 % (31-73) Lymphocytes (%) (Auto) 16 % (24-48) Monocytes (%) (Auto) 11 % (0-9) Eosinophils (%) (Auto) 2 % (0-3) Basophils (%) (Auto) 1 % (0-3) Neutrophils # (Auto) 6.5 x10^3/uL (1.8-7.7) Lymphocytes # (Auto) 1.5 x10^3/uL (1.0-4.8) Monocytes # (Auto) 1.0 x10^3/uL (0.0-1.1) Eosinophils # (Auto) 0.1 x10^3/uL (0.0-0.7) Basophils # (Auto) 0.1 x10^3/uL (0.0-0.2) Laboratory Tests Test 08/11/19 11:35 08/11/19 16:51 08/11/19 21:09 08/12/19 07:16 Glucose (Fingerstick) 113 mg/dL (70-99) 130 mg/dL (70-99) 105 mg/dL (70-99) 72 mg/dL (70-99) Test 08/12/19 08:30 White Blood Count 9.2 x10^3/uL (4.0-11.0) Red Blood Count 4.52 x10^6/uL (4.30-5.70) Hemoglobin 13.5 g/dL (13.0-17.5) Hematocrit 40.8 % (39.0-53.0) Mean Corpuscular Volume 90 fL (79-100) Mean Corpuscular Hemoglobin 30 pg (25-35) Mean Corpuscular Hemoglobin Concent 33 g/dL (31-37) Red Cell Distribution Width 14.9 % (11.5-14.5) Platelet Count 152 x10^3/uL (140-400) Neutrophils (%) (Auto) 70 % (31-73) Lymphocytes (%) (Auto) 16 % (24-48) Monocytes (%) (Auto) 11 % (0-9) Eosinophils (%) (Auto) 2 % (0-3) Basophils (%) (Auto) 1 % (0-3) Neutrophils # (Auto) 6.5 x10^3/uL (1.8-7.7) Lymphocytes # (Auto) 1.5 x10^3/uL (1.0-4.8) Monocytes # (Auto) 1.0 x10^3/uL (0.0-1.1) Eosinophils # (Auto) 0.1 x10^3/uL (0.0-0.7) Basophils # (Auto) 0.1 x10^3/uL (0.0-0.2) Impression . 1. Abnormal CT chest, abdomen and pelvis with multiple small lung nodules along with suspected hepatic lesion and abdominal lymphadenopathy. I suspect that we are dealing with metastatic liver cancer. He presented with ascites, which could be metastatic as well. 2. Underlying chronic obstructive pulmonary disease with ongoing tobaccoism. 3. History of cirrhosis. Status post paracentesis. 4. Abnormal liver function tests related to metastatic cancer. Plan . 1. Continue with present oxygen at 2 liters. The patient presented with hypoxia. Clinically, compensated, on 2 liters. 2. Follow ascitic fluid cytology. 3. MRI of the liver suspicious for hepatocellular carcinoma. May need bx .AFP high 4. GI rec 5. Per Oncology despite markedly elevated AFP, liver biopsy or supraclavicular lymph node biopsy would be indicated to confirm diagnosis and type of HCC. can be done today and f/u as OP . await GI rec . Discussed with MARIPOSA. MARCELINO RODRIGUEZ MD August 12, 2019 10:06
[2019-08-12] MEDS ORDERED: LIDOCAINE WITH 8.4% SOD BICARB 3 ML DISP.SYRIN. ONE (10:34)
[2019-08-12 10:53] VITALS: BP 155/77
[2019-08-12 11:09] LABS: PROTHROMBIN TIME PATIENT 12.8 SEC (11.7-14.0)
[2019-08-12] MEDS ORDERED: LIDOCAINE WITH 8.4% SOD BICARB 3 ML DISP.SYRIN. INJ ONE (11:30)
[2019-08-12 11:31] VITALS: BP 154/69
--- NOTE | 2019-08-12 11:44 | NUR ---
SS following up with discharge planning. SS reviewed pt chart and discussed with pt RN. Pt is currently requiring oxygen. Pt getting Paracentesis today and lung biopsy on Thursday. Pt is COVID19 negative. SS will continue to follow for discharge planning.
[2019-08-12 12:03] VITALS: BP 165/88
[2019-08-12] MEDS ORDERED: SPIR25TA PO (14:29)
[2019-08-12] MEDS ORDERED: FURO20TA3 PO (14:29)
--- NOTE | 2019-08-12 14:33 | PDOC3 ---
Discharge Summary Visit Information Date of Admission: August 09, 2019 Date of Discharge: August 12, 2019 Admitting Diagnosis: Spontaneous ascites Final Diagnosis Problems Medical Problems: (1) Ascites Status: Acute Brief Hospital Course Allergies Allergies Coded Allergies Type Severity Reaction Last Updated Verified Penicillins Allergy Intermediate 08/10/19 Yes Vital Signs Vital Signs Date Time Temp Pulse Resp B/P (MAP) Pulse Ox O2 Delivery O2 Flow Rate FiO2 08/12/19 12:03 88 165/88 (113) 100 Nasal Cannula 2.0 08/12/19 10:53 98.2 18 98.2 Lab Results Laboratory Tests Test 08/10/19 16:30 08/10/19 17:10 08/10/19 20:57 08/11/19 03:57 Glucose (Fingerstick) 90 mg/dL (70-99) 92 mg/dL (70-99) Coronavirus (COVID-19)(PCR) Not detected (NOT DETECT.) White Blood Count 8.7 x10^3/uL (4.0-11.0) Red Blood Count 4.30 x10^6/uL (4.30-5.70) Hemoglobin 13.1 g/dL (13.0-17.5) Hematocrit 39.2 % (39.0-53.0) Mean Corpuscular Volume 91 fL (79-100) Mean Corpuscular Hemoglobin 31 pg (25-35) Mean Corpuscular Hemoglobin Concent 34 g/dL (31-37) Red Cell Distribution Width 14.8 % (11.5-14.5) Platelet Count 145 x10^3/uL (140-400) Neutrophils (%) (Auto) 65 % (31-73) Lymphocytes (%) (Auto) 21 % (24-48) Monocytes (%) (Auto) 11 % (0-9) Eosinophils (%) (Auto) 2 % (0-3) Basophils (%) (Auto) 1 % (0-3) Neutrophils # (Auto) 5.6 x10^3/uL (1.8-7.7) Lymphocytes # (Auto) 1.8 x10^3/uL (1.0-4.8) Monocytes # (Auto) 1.0 x10^3/uL (0.0-1.1) Eosinophils # (Auto) 0.2 x10^3/uL (0.0-0.7) Basophils # (Auto) 0.1 x10^3/uL (0.0-0.2) Sodium Level 135 mmol/L (136-145) Potassium Level 4.0 mmol/L (3.5-5.1) Chloride Level 100 mmol/L (98-107) Carbon Dioxide Level 27 mmol/L (21-32) Anion Gap 8 (6-14) Blood Urea Nitrogen 14 mg/dL (8-26) Creatinine 0.8 mg/dL (0.7-1.3) Estimated GFR (Cockcroft-Gault) 98.0 BUN/Creatinine Ratio 18 (6-20) Glucose Level 149 mg/dL (70-99) Calcium Level 8.5 mg/dL (8.5-10.1) Total Bilirubin 1.4 mg/dL (0.2-1.0) Aspartate Amino Transf (AST/SGOT) 234 U/L (15-37) Alanine Aminotransferase (ALT/SGPT) 63 U/L (16-63) Alkaline Phosphatase 432 U/L (46-116) Total Protein 6.2 g/dL (6.4-8.2) Albumin 2.7 g/dL (3.4-5.0) Albumin/Globulin Ratio 0.8 (1.0-1.7) Test 08/11/19 06:29 08/11/19 07:54 08/11/19 11:35 08/11/19 16:51 Glucose (Fingerstick) 93 mg/dL (70-99) 143 mg/dL (70-99) 113 mg/dL (70-99) 130 mg/dL (70-99) Test 08/11/19 21:09 08/12/19 07:16 08/12/19 08:30 08/12/19 12:00 Glucose (Fingerstick) 105 mg/dL (70-99) 72 mg/dL (70-99) 97 mg/dL (70-99) White Blood Count 9.2 x10^3/uL (4.0-11.0) Red Blood Count 4.52 x10^6/uL (4.30-5.70) Hemoglobin 13.5 g/dL (13.0-17.5) Hematocrit 40.8 % (39.0-53.0) Mean Corpuscular Volume 90 fL (79-100) Mean Corpuscular Hemoglobin 30 pg (25-35) Mean Corpuscular Hemoglobin Concent 33 g/dL (31-37) Red Cell Distribution Width 14.9 % (11.5-14.5) Platelet Count 152 x10^3/uL (140-400) Neutrophils (%) (Auto) 70 % (31-73) Lymphocytes (%) (Auto) 16 % (24-48) Monocytes (%) (Auto) 11 % (0-9) Eosinophils (%) (Auto) 2 % (0-3) Basophils (%) (Auto) 1 % (0-3) Neutrophils # (Auto) 6.5 x10^3/uL (1.8-7.7) Lymphocytes # (Auto) 1.5 x10^3/uL (1.0-4.8) Monocytes # (Auto) 1.0 x10^3/uL (0.0-1.1) Eosinophils # (Auto) 0.1 x10^3/uL (0.0-0.7) Basophils # (Auto) 0.1 x10^3/uL (0.0-0.2) Prothrombin Time 12.8 SEC (11.7-14.0) Prothromb Time International Ratio 1.0 (0.8-1.1) Sodium Level 133 mmol/L (136-145) Potassium Level 4.4 mmol/L (3.5-5.1) Chloride Level 98 mmol/L (98-107) Carbon Dioxide Level 27 mmol/L (21-32) Anion Gap 8 (6-14) Blood Urea Nitrogen 13 mg/dL (8-26) Creatinine 0.7 mg/dL (0.7-1.3) Estimated GFR (Cockcroft-Gault) 114.3 BUN/Creatinine Ratio 19 (6-20) Glucose Level 95 mg/dL (70-99) Calcium Level 8.8 mg/dL (8.5-10.1) Total Bilirubin 1.7 mg/dL (0.2-1.0) Aspartate Amino Transf (AST/SGOT) 258 U/L (15-37) Alanine Aminotransferase (ALT/SGPT) 66 U/L (16-63) Alkaline Phosphatase 459 U/L (46-116) Total Protein 6.3 g/dL (6.4-8.2) Albumin 2.6 g/dL (3.4-5.0) Albumin/Globulin Ratio 0.7 (1.0-1.7) Laboratory Tests Test 08/11/19 16:51 08/11/19 21:09 08/12/19 07:16 08/12/19 08:30 Glucose (Fingerstick) 130 mg/dL (70-99) 105 mg/dL (70-99) 72 mg/dL (70-99) White Blood Count 9.2 x10^3/uL (4.0-11.0) Red Blood Count 4.52 x10^6/uL (4.30-5.70) Hemoglobin 13.5 g/dL (13.0-17.5) Hematocrit 40.8 % (39.0-53.0) Mean Corpuscular Volume 90 fL (79-100) Mean Corpuscular Hemoglobin 30 pg (25-35) Mean Corpuscular Hemoglobin Concent 33 g/dL (31-37) Red Cell Distribution Width 14.9 % (11.5-14.5) Platelet Count 152 x10^3/uL (140-400) Neutrophils (%) (Auto) 70 % (31-73) Lymphocytes (%) (Auto) 16 % (24-48) Monocytes (%) (Auto) 11 % (0-9) Eosinophils (%) (Auto) 2 % (0-3) Basophils (%) (Auto) 1 % (0-3) Neutrophils # (Auto) 6.5 x10^3/uL (1.8-7.7) Lymphocytes # (Auto) 1.5 x10^3/uL (1.0-4.8) Monocytes # (Auto) 1.0 x10^3/uL (0.0-1.1) Eosinophils # (Auto) 0.1 x10^3/uL (0.0-0.7) Basophils # (Auto) 0.1 x10^3/uL (0.0-0.2) Prothrombin Time 12.8 SEC (11.7-14.0) Prothromb Time International Ratio 1.0 (0.8-1.1) Sodium Level 133 mmol/L (136-145) Potassium Level 4.4 mmol/L (3.5-5.1) Chloride Level 98 mmol/L (98-107) Carbon Dioxide Level 27 mmol/L (21-32) Anion Gap 8 (6-14) Blood Urea Nitrogen 13 mg/dL (8-26) Creatinine 0.7 mg/dL (0.7-1.3) Estimated GFR (Cockcroft-Gault) 114.3 BUN/Creatinine Ratio 19 (6-20) Glucose Level 95 mg/dL (70-99) Calcium Level 8.8 mg/dL (8.5-10.1) Total Bilirubin 1.7 mg/dL (0.2-1.0) Aspartate Amino Transf (AST/SGOT) 258 U/L (15-37) Alanine Aminotransferase (ALT/SGPT) 66 U/L (16-63) Alkaline Phosphatase 459 U/L (46-116) Total Protein 6.3 g/dL (6.4-8.2) Albumin 2.6 g/dL (3.4-5.0) Albumin/Globulin Ratio 0.7 (1.0-1.7) Test 08/12/19 12:00 Glucose (Fingerstick) 97 mg/dL (70-99) Brief Hospital Course Mr Sims is a 64 yo M Toppers who gets most of his care at the [facility] w/ P MHx COPD, Diabetes-Type II, Hypertension, Hep C s/p SVR treatment (initially did not disclose this), smoker who presents with chest tightness and abdominal pain. Abdominal pain rates a 10 out of 10. He states that he has been having regular bowel movements. He states 2 days ago he was a bit constipated but he is no longer constipated. He states he has not had any nausea or vomiting or diarrhea. He states he does not have any chest pain currently. On ROS he also notes new shortness of breath which has been progressive. He also notes abdominal pain on movement. He is asking for food and he is worried about his being upset after he was told he probably has cancer based on his abnormal CT scan. He notes states about 10 days ago he was trying to lift the back of a lawnmower when he felt a pop in his chest and abdomen area. 3 days ago he tried to lift a tractor and felt the same sensation. 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 Also noted is a mass at the left base of the neck. In addition, multiple enlarged masses along the left side of the ascending thoracic aorta and anterior to a hiatal hernia and upper abdominal enlarged lymph nodes or masses. Finally notable is hepatic cirrhosis with splenomegaly and hypoattenuation involving the liver which raises possibility of mass lesion is noted. Moderate to large amount of ascites. Labs significant for WBC 9.2, Hb 13.7, platelets 147, NA 135, K4, BUN 14, CR 0.7, glucose 208, AST 213, ALT 75, alk phos 464, albumin 2.7, lipase 172, INR 1.1, troponin negative. Admitted for further care. Consulted GI, Pulm, IR, oncology 08/09: MRI abdomen: Cirrhosis with stigmata of portal hypertension including splenomegaly. No definite esophageal or gastric varices are identified. There is abnormal signal involving various segments of the hepatic parenchyma with at least a single lesion in the right hepatic dome, segment VII measuring 2.7 x 2.5 cm with suspicious characteristics for hepatocellular carcinoma (LI- RADS 5). However, there is abnormal pattern of enhancement involving the medial and lateral segments of the left hepatic lobe with heterogeneous T2 signal alteration suspicious for diffuse infiltrative hepatocellular carcinoma. Tissue sampling may be of benefit. Pathologically enlarged gastrohepatic and peripancreatic lymph nodes are present, likely metastatic. 08/10: Overnight notes his abdomen swelled up again. His shortness of breath has improved. LFTs stable. Gram stain of abdominal fluid shows rare GPC's, negative for malignant cells per pathology. Discussed with patient will likely need further testing likely including liver biopsy will discuss with oncology. Overnight no events. 2.5 L paracentesis this morning. He feels better not short of breath no CP or S OB. He understands he likely has hepatocellular carcinoma and does not want to "sit around all weekend" and says he will return outpatient for biopsy. Problem list: Spontaneous ascites - almost certainly due to progression of cirrhosis of liver. Especially concerning that he has stopped drinking and is in SVR from his hep C. D/w IR to have diagnostic and therapeutic paracentesis in AM if possible. GI consulted as well. Cirrhosis - with splenomegaly and spontaneous ascites risk factors of hep C and history of EtOH abuse. nodular contour of the liver compatible with cirrhosis.// GI consulted. Transaminitis - likely related to acute decompensated liver failure or acute hepatitis or congestive hepatopathy. 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 Abdominal doppler would be appropriate after paracentesis and at that time can assess for possible portal thrombus as well Multiple pulmonary nodules. Also noted is a mass at the left base of the neck. In addition, multiple enlarged masses along the left side of the ascending thoracic aorta and anterior to a hiatal hernia and upper abdominal enlarged lymph nodes or masses. Pulm consulted, Hypoattenuation involving the liver which raises possibility of mass lesion - E levated AFP almost certainly concerning for hepatocellular carcinoma COPD - prn nebs ordered Diabetes-Type II - basal bolus plus insulin while inpatient Hypertension - will reconcile meds with [facility] H/o Hep C s/p SVR treatment - will check acute hepatitis panel. Will f/u PCR FEN - ADA diet PPX - heparin TID FULL CODE Dispo - inpatient consult GI MRI of the liver with tumor markers Plan: Discharge per patient wishes, he wants biopsy outpatient next week. Will schedule with [facility] at 12:45 p.m. on 08/16/2019 for oncology f/u Greater than 30 minutes spent on d/c Discharge Information Condition at Discharge: Improved Follow Up: Weeks (1) Disposition/Orders: D/C to Home Scheduled Furosemide (Furosemide) 20 Mg Tablet, 20 MG PO DAILY for Cirrhosis for 30 Days, #30 Prescribed by: ALISHA TREJO MD on 08/12/19 1429 Spironolactone (Aldactone) 25 Mg Tablet, 50 MG PO DAILY for Cirrhosis for 30 Days, #60 Prescribed by: ALISHA TREJO MD on 08/12/19 1429 Hemodynamically unstable?: No Is patient in severe pain?: No Is NPO status required?: No ALISHA TREJO MD August 12, 2019 14:33
[2019-08-12 15:08] VITALS: BP 154/66
--- NOTE | 2019-08-12 16:35 | NUR ---
Patient left the building with his around 1630. Discharge eduction gone over by this nurse and Dr Moy prior to discharge. Scripts for spirolactone and Lasix given to the patient. [facility] with his primary care doctor to schedule a liver biopsy since his insurance will not cover it as outpatient here at [facility]. Patient very eager to go home and did not want to wait till Thursday to have the biopsy done here. He also has an appointment with oncology on 08/16/19 at 12:45. His was called and notified of all his discharge instructions as well as his follow up appointments. IV discontinued prior to discharge without any complications. Bandaid for paracentesis still in place without any bleeding noted. No concerns noted at discharge.
--- NOTE | 2019-08-12 16:38 | RAD ---
Ultrasound-guided paracentesis 08/12/2019 2:34 PM Procedure: The risks and benefits of the procedure were discussed the patient. Informed consent was obtained. A timeout procedure was performed. Sonographic evaluation of the abdomen was performed demonstrating ascites . The left lower quadrant was prepped and draped using maximum sterile barrier technique. 1% lidocaine without epinephrine was administered for local anesthesia. Real-time ultrasonographic guidance was used in passing a 5 Turkmen Yueh catheter into the fluid collection. 2.5 L of serous ascites was removed. The catheter was removed and pressure held to achieve hemostasis. A sterile dressing was applied. Impression: Successful ultrasound-guided paracentesis
[2019-08-12] MEDS ORDERED: HYDR-2759 PO (17:29)
[2019-08-13 07:14] LABS: CA 19-9 14 U/mL (0-35)
== END 2019-08-12 16:30 | disposition home or self-care (01) | DRG 441 ==
LOC: ER 13:13 → 4 NORTH 15:23
PROVIDERS: ADMIT Internal Medicine; ATTEND Internal Medicine
PROC: 0W9G3ZZ Drainage of Peritoneal Cavity, Percutaneous Approach (ICD-10-PCS; principal; 2019-08-10)
PROC: 0W9G3ZZ Drainage of Peritoneal Cavity, Percutaneous Approach (ICD-10-PCS; 2019-08-12)
DX: K72.00 Acute and subacute hepatic failure without coma (principal); E43 Unspecified severe protein-calorie malnutrition; B17.9 Acute viral hepatitis, unspecified; R18.8 Other ascites; K74.60 Unspecified cirrhosis of liver; B19.20 Unspecified viral hepatitis C without hepatic coma; E11.9 Type 2 diabetes mellitus without complications; E88.09 Other disorders of plasma-protein metabolism, not elsewhere classified; F17.210 Nicotine dependence, cigarettes, uncomplicated; I10 Essential (primary) hypertension; Z20.828 Contact with and (suspected) exposure to other viral communicable diseases; J44.9 Chronic obstructive pulmonary disease, unspecified; Z79.899 Other long term (current) drug therapy; Z82.49 Family history of ischemic heart disease and other diseases of the circulatory system; Z88.0 Allergy status to penicillin
CPT/HCPCS: 36415; 49083; 71045; 71275; 74174; 74183; 80053; 80307; 81001; 82105; 82150; 82378; 82962; 83605; 83690; 84484; 85025; 85610; 86301; 86705; 86709; 86803; 87071; 87075; 87116; 87340; 87522; 88112; 88305; 89050; 93005; 93976; 96361; 96374; 99406; A9575; C1892; J1644; J1815; J1940; J2060; J2270; J3010; J3490; J7030; P9046; Q9967; 99285-25; G0378; U0003-CS